=== PATIENT | female | born 1975 ===

== ENCOUNTER 2020-02-19 13:58 | Outpatient (REF) | payer OTHER, SELFPAY ==
--- NOTE | 2020-02-19 14:04 | MM_ITS ---
EXAMINATION: MM SCREENING DIGITAL BREAST TOMOSYNTHESIS, BILATERAL CLINICAL INFORMATION: Screening. Asymptomatic. Family history breast cancer in grandfather and cousin. The lifetime risk of breast cancer based on the Tyrer-Cuzick Model is 9%. COMPARISON: Mammography: 02/13/2019, 07/03/2018, 02/07/2018, 01/18/2018, 06/14/2017, 12/09/2016, 12/01/2016 (new baseline). TECHNIQUE: Digital breast tomosynthesis is performed in both the craniocaudal and mediolateral oblique views along with computer-aided detection (CAD). Synthesized 2D images are generated from the tomosynthesis. FINDINGS: There are scattered areas of fibroglandular density (ACR BI-RADS breast composition Category b). Parenchymal pattern is similar to prior exam. There is biopsy clip marker again seen right breast posterior upper outer quadrant. There is no developing density. Neither breast shows interval architectural abnormality or abnormal calcifications. MM/MM tomosynthesis screening BI IMPRESSION: No significant changes from prior exam. ASSESSMENT: BI-RADS 2: Benign RECOMMENDATION: Routine annual mammography screening. This patient's information was entered into a reminder system with a target due date for their next mammogram.
== END 2020-02-19 13:59 | disposition home or self-care (01) ==
LOC: HO.MAMMO 13:58
PROVIDERS: Visit Provider Internal Medicine
DX: Z12.31 Encounter for screening mammogram for malignant neoplasm of breast (principal)
CPT/HCPCS: 77063; 77067

== ENCOUNTER → 2020-03-10 11:54 | Outpatient (BNVA) | payer OTHER, SELFPAY | PROVIDERS: Visit Provider Obstetrics & Gynecology | DX: Z76.89 Persons encountering health services in other specified circumstances (principal) ==

== ENCOUNTER 2020-03-11 07:28 | Outpatient (REF) | payer OTHER, SELFPAY | END 2020-03-11 07:29 | disposition home or self-care (01) | LOC: HO.MDS 07:28 | PROVIDERS: Visit Provider Internal Medicine | DX: D50.9 Iron deficiency anemia, unspecified (principal) | CPT/HCPCS: 96365; 96366; J1200; J1750; Q0163 ==

== ENCOUNTER → 2020-05-20 13:53 | Outpatient (BNVA) | payer OTHER, SELFPAY | PROVIDERS: PCP Internal Medicine; Visit Provider Obstetrics & Gynecology | DX: N92.1 Excessive and frequent menstruation with irregular cycle (principal) | CPT/HCPCS: 81025; 99212 ==

== ENCOUNTER → 2020-08-12 08:40 | Outpatient (BNVA) | payer OTHER, SELFPAY | PROVIDERS: PCP Internal Medicine; Visit Provider Obstetrics & Gynecology | DX: N92.1 Excessive and frequent menstruation with irregular cycle (principal) | CPT/HCPCS: 99212 ==

== ENCOUNTER → 2020-08-27 08:10 | Outpatient (BNVA) | payer OTHER, SELFPAY | PROVIDERS: PCP Internal Medicine; Visit Provider Obstetrics & Gynecology | DX: Z30.432 Encounter for removal of intrauterine contraceptive device (principal); N92.1 Excessive and frequent menstruation with irregular cycle | CPT/HCPCS: 58301; 99212 ==

== ENCOUNTER 2020-08-29 06:38 | Day surgery (SDC) | payer OTHER, SELFPAY ==
[2020-08-25 08:44] VITALS: BMI 32.1
--- NOTE | 2020-08-27 12:45 | HO.ANESPROP2 ---
HPI - Anesthesia Eval Consult details Narrative: 44yo F for Uterine Ablation w/Novasure PMFSH Active Problems Active Problems: All Active Problems (Updated 08/27/20 @ 08:46 by Jacques Ramirez MD) Encounter for IUD removal (Acute) Mild asthma (Acute) Obese (Acute) Allergic rhinitis (Acute) Menometrorrhagia (Acute) Iron deficiency anemia (Chronic) Uterine fibroid (Acute) Past Medical History Medical History Allergic rhinitis Anxiety Depression GERD (gastroesophageal reflux disease) KRYSTLE (iron deficiency anemia) Mild asthma Obese Sjogrens syndrome Family History Family History Maternal Grandmother H/O cancer of uterus Paternal Grandmother History of breast cancer in adulthood Mother History of stroke History of lupus History of Sjogren's disease Surgical History Surgical History H/O right breast biopsy H/O tubal ligation H/O: Social History Social History Alcohol intake: never Smoking Status: Current every day smoker Tobacco Type: Cigarette Cigarettes Per Day: 10 Meds Allergies Allergy/AdvReac Type Severity Reaction Status Date / Time No Known Allergies Allergy Verified 08/12/20 08:49 [No Known Allergies*] Home Medications Medication Instructions Recorded Confirmed Last Taken Type clonazepam 0.5 mg PO Q8H PRN 02/08/20 08/25/20 Unknown History zolpidem 10 mg PO BEDTIME 02/08/20 08/25/20 Unknown History hydroxyzine HCl 1 tab PO BID PRN 03/07/20 08/25/20 Unknown History ibuprofen 1 tab PO Q8H PRN 03/07/20 08/25/20 Unknown History levonorgestrel 20 mcg/24 hours (6 20 mcg INTRAUTERINE USEASDIRECTD 03/10/20 06/20/20 Unknown History yrs) 52 mg intrauterine device aripiprazole 10 mg tablet 10 mg PO DAILY 05/15/20 08/25/20 Unknown History ferrous sulfate 1 tab PO DAILY 08/25/20 08/25/20 Unknown History Exam Exam Date and Time: August 27, 2020 1245 Height,Weight and Vital Signs: Height 5 ft 2 in Weight 79.832 kg Pertinent Lab Results Pertinent Lab Results: Laboratory Tests 06/20/20 14:00 WBC 9.4 Hgb 13.4 Hct 42.3 Plt Count 303 D Assessment and Plan Assessment Anesthesia Assessment: Chart Reviewed
[2020-08-29 06:51] VITALS: BP 100/72; PULSE 72; RESP 18; TEMP 36.1; O2SAT 99
[2020-08-29 07:05] LABS: UPreg QC Valid YES; Urine Pregnancy NEGATIVE (NEGATIVE)
[2020-08-29] MEDS: Lactated Ringers 1,000 ML 100 ML IVCONT (07:10)
--- NOTE | 2020-08-29 07:14 | PC.NURSE ---
ls clear stuffy nose secondary to allergies per pt
--- NOTE | 2020-08-29 07:32 | MHC.SHP ---
Pre-Procedural Eval Section A The patient is an INPATIENT: No Changes since office visit: No Cold of Flu in the past 2 weeks, No New Medical Problems, No Changes in Medication and No Patient answered all questions The History & Physical has been completed within 30 days and I have reviewed it.: Yes Section B Chief Complaint: Excessive and frequent menstruation Allergies: Allergies Allergy/AdvReac Type Severity Reaction Status Date / Time No Known Allergies Allergy Verified 08/12/20 08:49 [No Known Allergies*] Plan Diagnosis/Plan: Unchanged I have reviewed the history and physical and performed a pertinent physical examination on my patient. No changes have occurred unless specified.
--- NOTE | 2020-08-29 08:18 | HO.ANESPROP2 ---
[facility] Active Problems Active Problems: All Active Problems (Updated 08/27/20 @ 08:46 by Jacques Ramirez MD) Encounter for IUD removal (Acute) Mild asthma (Acute) Obese (Acute) Allergic rhinitis (Acute) Menometrorrhagia (Acute) Iron deficiency anemia (Chronic) Uterine fibroid (Acute) Past Medical History Medical History Allergic rhinitis Anxiety Depression GERD (gastroesophageal reflux disease) KRYSTLE (iron deficiency anemia) Mild asthma Obese Sjogrens syndrome Family History Family History Maternal Grandmother H/O cancer of uterus Paternal Grandmother History of breast cancer in adulthood Mother History of stroke History of lupus History of Sjogren's disease Family history of problems with anesthesia: No Surgical History Surgical History H/O right breast biopsy H/O tubal ligation H/O: History of Problems with Anesthesia: No Social History Social History Alcohol intake: never Smoking Status: Current every day smoker Tobacco Type: Cigarette Cigarettes Per Day: 10 Use of substances other than those prescribed or required for medical reasons: No Have you been hit, kicked, punched, or otherwise hurt by someone within the past year? If so, by whom?: No Are you DNR?: No Advance Directives: No Advance Directives Information Provided: Yes Advance Directives on File: No Nutrition Risks: No Nutritional Risk Meds Allergies Allergy/AdvReac Type Severity Reaction Status Date / Time No Known Allergies Allergy Verified 08/12/20 08:49 [No Known Allergies*] Active Medications: Current Medications Generic Name Dose Route Start Last Admin Trade Name Freq PRN Reason Stop Dose Admin Albuterol Sulfate 2.5 mg 08/29/20 06:34 Albuterol Sulfate (0.083%) 2.5 Mg/3 Ml Vial.Neb INHALE ONCE PRN Shortness of Breath/Wheezing Lactated Ringer's 1,000 mls @ 100 mls/hr 08/29/20 06:45 08/29/20 07:10 Lr IVCONT 100 mls/hr .Q10H CATINA Administration Home Medications Medication Instructions Recorded Confirmed Last Taken Type clonazepam 0.5 mg PO Q8H PRN 02/08/20 08/25/20 Unknown History zolpidem 10 mg PO BEDTIME 02/08/20 08/25/20 Unknown History hydroxyzine HCl 1 tab PO BID PRN 03/07/20 08/25/20 Unknown History ibuprofen 1 tab PO Q8H PRN 03/07/20 08/25/20 Unknown History levonorgestrel 20 mcg/24 hours (6 20 mcg INTRAUTERINE USEASDIRECTD 03/10/20 06/20/20 Unknown History yrs) 52 mg intrauterine device aripiprazole 10 mg tablet 10 mg PO DAILY 05/15/20 08/25/20 Unknown History ferrous sulfate 1 tab PO DAILY 08/25/20 08/25/20 Unknown History Exam Exam Date and Time: August 29, 2020 0818 Height,Weight and Vital Signs: Height 5 ft 2 in Weight 79.832 kg Last Vital Signs Temp 97 F 08/29/20 06:51 Pulse 72 08/29/20 06:51 Resp 18 08/29/20 06:51 BP 100/72 08/29/20 06:51 Pulse Ox 99 08/29/20 06:51 Pertinent Lab Results Pertinent Lab Results: Laboratory Tests 08/29/20 06:50 Urine Test NEGATIVE Airway Mallampati Class: I TM Dist: >3cm Neck ROM: Full Loose/Missing/Broken Teeth: No Assessment and Plan Assessment Anesthesia Assessment: Anesthesia Plan Discussed and Chart Reviewed Final Anesthetic Review NPO: Yes ASA Class: II Final Preanesthetic Review: No Changes in Pt Med Stat, Meds/Allgs Chart Reviewed, Consent Obtained/Reviewed and Anes Risks/Benef Reviewed Patient Risk: Low Procedure Risk: Intermediate Anesthetic Plan Anesthetic Plan: GA and Agree w/ Assess. and Plan Disposition: Standard PACU
--- NOTE | 2020-08-29 08:53 | P.BOP_ITS ---
Brief Operative Note Date of Service: 03/07/20 Pre-op diagnosis: Menometrorrhagia Post-op diagnosis: same Procedure: NovaSure Endometrial Ablation Surgeon: Jacques Ramirez MD Anesthesia: MAC Was an Automation Sales Manager used for this Procedure?: No Estimated blood loss (mL): 0 Pathology: none sent Condition: stable Disposition: PACU
--- NOTE | 2020-08-29 08:55 | W.PM.OPN ---
Operative Note Operative Note Date of Service: 03/07/20 Narrative: Preop diagnosis: Menorrhagia Post Op Diagnosis: Same Op: Novasure Endometrial Ablation Anesthesia: MAC Concrete Mixing Plant Superintendent: None QBL: Minimal Pathology: None Complications: None Procedure: The patient was put in the dorsal lithotomy position. She was prepped and draped in the usual sterile manner. Bimanual exam prior to prepping revealed a mobile, anteverted uterus. A speculum was placed in the vagina and the anterior lip of the cervix was grasped with a single toothed tenaculum and brought forward. Taking care not to enter deep into the uterus, a sound was passed inside to measure the length of the uterus and cervix. This length was found to be 8 cm. Next, Hegar dilator was inserted into the cervical os to measure the cervical length which was 3 cm. This yielded an endometrial cavity length of 6.5 cm. A series of Hegar dilators were then inserted sequentially into the cervical os up to a size of 5 mm. The Novasure device was then opened and tested; the fan deployed easily. The instrument was set to the correct cavity length and introduced into the uterine cavity. The fan was slowly deployed with gentle movements to ensure a snug fit within the cavity. The cavity width read 4.5 cm. The measurements were imported and a cavity check was done. The trumpet was then slid down to the cervix and the device was activated. The total burn time was 91 seconds. The fan was retracted and device removed. The fan was examined and revealed charred tissue. The tenaculum was removed and the cervix examined for hemostasis which was achieved using pressure. Finally the speculum was removed. The patient tolerated the procedure well and was brought to the recovery room in a stable condition. At the end of the procedure all sponges and instruments were counted and correct. The blood loss was minimal and there were no complications.
[2020-08-29 09:03] VITALS: BP 115/75; PULSE 74; RESP 12; TEMP 36.1; O2SAT 94
[2020-08-29 09:08] VITALS: BP 118/84; PULSE 71; RESP 14; O2SAT 95
[2020-08-29 09:13] VITALS: BP 112/79; PULSE 70; RESP 14; O2SAT 95
[2020-08-29] MEDS: oxyCODONE HCl Immed Release 5 MG TABLET PO (09:15)
[2020-08-29] MEDS: Ketorolac Tromethamine 15 MG/ML VIAL IVPUSH (09:15)
[2020-08-29 09:18] VITALS: BP 117/80; PULSE 69; RESP 16; O2SAT 95
[2020-08-29 09:33] VITALS: BP 106/66; PULSE 64; RESP 16; TEMP 36.1; O2SAT 97
== END 2020-08-29 10:08 | disposition home or self-care (01) ==
LOC: HO.SSS 06:39
PROVIDERS: PCP Internal Medicine; Visit Provider Obstetrics & Gynecology
PROC: (CPT 58353; principal; 2020-08-29 08:20)
DX: N92.1 Excessive and frequent menstruation with irregular cycle (principal); D50.9 Iron deficiency anemia, unspecified; J45.909 Unspecified asthma, uncomplicated; M35.00 Sjogren syndrome, unspecified; Z98.51 Tubal ligation status; F17.210 Nicotine dependence, cigarettes, uncomplicated; E66.9 Obesity, unspecified; Z68.31 Body mass index [BMI] 31.0-31.9, adult
CPT/HCPCS: 58353; 81025; J1885; J2405; J3010

== ENCOUNTER 2021-03-03 12:08 | Outpatient (REF) | payer OTHER, SELFPAY ==
[2021-03-03 13:23] LABS: Hematocrit 39.1 % (37.0-47.0); Hemoglobin 12.2 g/dl (12.0-16.0); Mean Corpuscular HGB Conc 31.2 g/dl (31.0-35.0); Mean Corpuscular Hemoglobin 26.8 pg (27.0-33.0); Mean Corpuscular Volume 85.9 fL (80.0-98.0); Mean Platelet Volume 11.4 fL (9.4-12.3); Platelet Count 290 X10*3/uL (160-400); Red Blood Count 4.55 X10*6/uL (4.20-5.50); White Blood Count 10.6 X10*3/uL (4.8-10.8)
[2021-03-03 14:08] LABS: HCG Quantitative < 2 mIU/mL; TSH reflex Free T4 1.87 uIU/mL (0.32-4.0)
[2021-03-03 15:58] LABS: CT PCR NOT DETECTED (Not Detect.); NG PCR NOT DETECTED (Not Detect.)
[2021-03-04 08:43] LABS: ~HepC Num1 0.15 S/CO (0.00-0.79); ~Hepatitis C Antibody Nonreactive (Nonreactive)
[2021-03-04 08:53] LABS: HBsAGNum1 0.11 S/CO (0.00-0.99); HIV AB/AG Nonreactive (Nonreactive); HIV Num 1 0.07 S/CO (0.00-0.99); Hepatitis B Surface Antigen Negative (Negative)
[2021-03-04 09:59] LABS: BV Int Neg Control Negative (Negative); BV Int Pos Control Positive (Positive)
[2021-03-04 10:01] LABS: Syphilis Screen Nonreactive (Nonreactive)
== END 2021-03-03 12:09 | disposition home or self-care (01) ==
LOC: HO.LAB 12:08
PROVIDERS: PCP Internal Medicine; Visit Provider Obstetrics & Gynecology
DX: Z01.419 Encounter for gynecological examination (general) (routine) without abnormal findings (principal); N93.9 Abnormal uterine and vaginal bleeding, unspecified; Z11.3 Encounter for screening for infections with a predominantly sexual mode of transmission; Z98.51 Tubal ligation status
CPT/HCPCS: 36415; 84443; 84702; 85027; 86780; 86803; 87340; 87389; 87480; 87491; 87510; 87591; 87660; 99212

== ENCOUNTER 2021-03-12 13:31 | Outpatient (REF) | payer OTHER, SELFPAY ==
--- NOTE | ~2021-03-12 | US_ITS ---
EXAMINATION: US PELVIS CLINICAL INFORMATION: Abnormal uterine and vaginal bleeding COMPARISON: Previous pelvic ultrasound most recent December 2019 TECHNIQUE: Ultrasound of the pelvis is performed using both transabdominal and transvaginal transducers along with Doppler. Transvaginal imaging is performed due to inadequate visualization transabdominally. FINDINGS: The uterus is anteverted and retroflexed and measures 10 x 4.4 x 6 cm in dimension. There is a 1.4 x 1.5 x 1 cm posterior uterine fibroid. There is a small subserosal anterior uterine body fibroid measuring 6 x 7 x 7 mm. These do not appear appreciably changed from previous exam. Endometrial thickness is normal measuring 0.7 cm. There are nabothian cysts in the cervix. The right ovary is not identified. The left ovary measures 4.5 x 2.5 x 2.5 cm. There is a 2.9 x 2.2 x 2.6 cm minimally complex left ovarian cyst with a single septation. There is a small amount of fluid in the pelvis. US/US pelvic and transvaginal IMPRESSION: Normal thickness endometrium. Small uterine fibroid similar to exam. Minimally complex 2.9 x 2.2 x 2.6 cm left ovarian cyst.
--- NOTE | ~2021-03-12 | XR_ITS ---
EXAMINATION: XR KNEE, LEFT CLINICAL INFORMATION: Left knee pain. COMPARISON: 06/28/2017 TECHNIQUE: 2 views of the left knee. FINDINGS: Bones and soft tissues are normal. No fracture or joint effusion. Alignment is anatomic. Joint spaces are well maintained. No abnormal soft tissue calcification. XR/XR knee LT 2V IMPRESSION: Normal left knee.
== END 2021-03-12 13:32 | disposition home or self-care (01) ==
LOC: HO.US 13:31
PROVIDERS: PCP Student in an Organized Health Care Education/Training Program; Visit Provider Obstetrics & Gynecology
DX: N93.9 Abnormal uterine and vaginal bleeding, unspecified (principal); E66.9 Obesity, unspecified
CPT/HCPCS: 73560; 76830; 76856

== ENCOUNTER 2021-03-25 08:26 | Outpatient (REF) | payer OTHER, SELFPAY ==
[2021-03-25 11:12] LABS: Erythrocyte Sedimentation Rate 8 MM/HR (0-20)
[2021-03-25 11:17] LABS: Alanine Aminotransferase 29 U/L (0-31); Albumin Level 4.1 g/dL (3.5-5.0); Alkaline Phosphatase 131 U/L (39-117); Anion Gap 15 (12-20); Aspartate Amino Transferase 25 U/L (5-31); Bilirubin Total 0.3 mg/dL (0.0-1.0); Blood Urea Nitrogen 11 mg/dL (9-16); Calcium 10.5 mg/dL (8.4-10.2); Carbon Dioxide 20 mmol/L (22-29); Chloride 109 mmol/L (96-108); Cholesterol 212 mg/dL; Estimated Glomerular Filt Rate 59; Glucose Fasting 103 mg/dL (60-99); HDL Cholesterol 37 mg/dL; LDL Cholesterol Calculated 155 mg/dl; Potassium 4.6 mmol/L (3.3-5.1); Sodium 139 mmol/L (135-145); Total Protein 7.8 g/dL (6.5-8.0); Triglycerides 104 mg/dL
[2021-03-25 11:34] LABS: TSH reflex Free T4 1.17 uIU/mL (0.32-4.0)
[2021-03-27 06:27] LABS: CA-125 5 U/mL (<35)
[2021-03-27 12:45] LABS: Cyclic Citrullinated Peptide <16 UNITS
[2021-03-28 12:46] LABS: Antibody to SS-A Antigen <1.0 NEG AI (<1.0 NEG); Antibody to SS-B Antigen <1.0 NEG AI (<1.0 NEG)
== END 2021-03-25 08:27 | disposition home or self-care (01) ==
LOC: HO.LAB 08:26
PROVIDERS: Absent Provider Internal Medicine; PCP Internal Medicine; Visit Provider Obstetrics & Gynecology
DX: E66.9 Obesity, unspecified (principal); R68.2 Dry mouth, unspecified; E78.5 Hyperlipidemia, unspecified; N83.299 Other ovarian cyst, unspecified side; N92.1 Excessive and frequent menstruation with irregular cycle
CPT/HCPCS: 36415; 80053; 80061; 84443; 85652; 86200; 86235; 86304; 99212

== ENCOUNTER 2021-04-02 13:33 | Outpatient (REF) | payer OTHER, SELFPAY | END 2021-04-02 13:34 | disposition home or self-care (01) | LOC: HO.LAB 13:33 | PROVIDERS: Visit Provider Internal Medicine | DX: Z20.822 Contact with and (suspected) exposure to COVID-19 (principal) | CPT/HCPCS: C9803; U0003; U0005 ==

== ENCOUNTER 2021-06-16 13:52 | Emergency (ER) | payer OTHER, SELFPAY ==
[2021-06-16 14:57] VITALS: BP 129/79; PULSE 79; RESP 18; TEMP 36.8; O2SAT 99; BMI 31.1
--- NOTE | 2021-06-16 15:53 | ED_ITS ---
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 Patient states that a few days ago, she noticed swelling and pain to her upper pubic area. Patient states that she has been putting neosporin on it and using warm compresses but it hasn't helped. Patient states that she would like the area to be opened and drained. Patient denies any dizziness, lightheadedness, abdominal pain, nausea, vomiting, fever, chills, blurry vision, double vision, loss of vision, chest pain, difficulty breathing, shortness of breath, back pain, night sweats, pain with urination, increased urinary frequency, increased urinary urgency, blood in her urine or stool, syncope or a near syncopal episode, recent trauma or falls, bowel incontinence, bladder incontinence, bowel retention, bladder retention, or any other complaints at this time. MD complaint: abscess/boil Onset (ago): day(s) Related Data Home Medications Medication Instructions Recorded Confirmed clonazepam 0.5 mg tablet 0.5 mg PO Q8H PRN 02/08/20 03/04/21 zolpidem 10 mg tablet 10 mg PO BEDTIME 02/08/20 03/04/21 aripiprazole 15 mg tablet 15 mg PO DAILY 03/04/21 03/04/21 clonidine HCl 0.1 mg tablet 0.1 mg PO BID PRN 03/04/21 03/04/21 Previous Rx's Medication Instructions Recorded albuterol sulfate 90 mcg/actuation 2 inh INHALATION Q6H PRN 30 Days 05/15/20 breath activated powder inhaler #1 ea (ProAir RespiClick) metronidazole 500 mg tablet 500 mg PO BID 7 Days #14 tab 03/04/21 fluticasone propionate 44 2 puff INHALATION BID 30 Days 05/06/21 mcg/actuation HFA aerosol inhaler #10.6 g (Flovent HFA) doxycycline hyclate 100 mg capsule 100 mg PO BID 7 Days #14 cap 06/16/21 Allergies Allergy/AdvReac Type Severity Reaction Status Date / Time No Known Allergies Allergy Verified 03/04/21 14:31 [No Known Allergies*] Review of Systems Constitutional: Constitutional: Reports no additional constitutional complaints, Denies chills, Denies fever(s) and Denies night sweats Eyes: Eyes: Reports no additional eye complaints, Denies blurry vision, Denies change in vision, Denies diplopia, Denies eye discharge, Denies loss of vision and Denies eye pain ENT: Denies dizziness Cardiovascular: Cardiovascular: Reports no additional cardiovascular complaints, Denies chest pain, Denies lightheadedness, Denies Loss of Consciousness and Denies dyspnea Respiratory: Respiratory: Reports no additional respiratory complaints and Denies dyspnea Gastrointestinal: Gastrointestinal: Reports no additional gastrointestinal complaints, Denies abdominal pain, Denies melena, Denies hematochezia, Denies change in bowel habits and Denies change in stool character Genitourinary: Genitourinary: Denies hematuria, Denies urinary frequency, Denies dysuria, Denies urinary incontinence, Denies urinary hesitancy and Denies urinary urgency Musculoskeletal: Musculoskeletal: Reports no additional musculoskeletal complaints, Denies numbness and Denies tingling Integumentary/Breasts: Comments: small abscessed area to the suprapubic area Neurologic: Denies dizziness, Denies loss of vision, Denies numbness and Denies tingling Psychiatric: Psychiatric: Reports no additional psychiatric complaints Endocrine: Endocrine: Reports no additional endocrine complaints Hematologic/Lymphatic: Hematologic/Lymphatic: Reports no additional hematologic/lymphatic complaints Allergic/Immunologic: Allergic/Immunologic: Reports no additional allergic/immunologic complaints FORMERLY [facility] Past Medical History Attestation statement: The following information was validated with the patient. Source: old records reviewed Medical History Allergic rhinitis Anxiety Depression GERD (gastroesophageal reflux disease) KRYSTLE (iron deficiency anemia) Mild asthma Mild recurrent major depression Obese Sjogrens syndrome Surgical History H/O right breast biopsy H/O tubal ligation H/O: History of endometrial ablation Family History Family History Maternal Grandmother H/O cancer of uterus Paternal Grandmother History of breast cancer in adulthood Mother History of stroke History of lupus History of Sjogren's disease Social History Social History Housing: Apartment Alcohol intake: never Patient Tobacco Use Status: Current everyday Tobacco user Tobacco use type: Cigarette Cigarette Packs Per Day: 1 e-Cigarette/Vaping Use: Never Used Second Hand Smoke Exposure: No Advance Directives: No Advance Directives Information Provided: No Patient : No service: No Current occupational status: unemployed Physical Exam Vital Signs: Vital Signs: Last Vital Signs Temp 98.2 F 06/16/21 14:57 Pulse 79 06/16/21 14:57 Resp 18 06/16/21 14:57 BP 129/79 06/16/21 14:57 Pulse Ox 99 06/16/21 14:57 BMI result Body Mass Index 31.1 Const: General: cooperative, no acute distress, alert and awake Nutritional Appearance: well nourished Orientation/consciousness: patient oriented x3 Limitations: no limitations HENMT: Head: Yes normal to inspection and Yes atraumatic Ears: hearing grossly normal bilaterally and external ears normal General nose exam: Normal external nose present, no nasal discharge noted and no epistaxis Face and sinus: Yes normal facial exam, No abrasion and No laceration Mouth: Normal oral and palatal mucosa present, no drooling and no muffled voice Eyes: General: appearance normal, both eyes and all related structures Periorbital: periorbital findings normal Eyelids: Yes eyelids normal Conjunctivae: conjunctivae normal Pupils: Equal, round and reactive pupils present EOM: EOMs intact bilaterally Neck: Neck: Yes normal visual inspection, Yes full ROM and Yes no lymphadenopathy Chest: Chest palpation & inspection: normal inspection of the chest Resp: Effort & Inspection: normal respiratory effort and able to speak in complete sentences GI: Inspection: Yes normal to inspection Skin: Other: small abscess to the suprapubic area Neuro: General: patient oriented x3 and moves all extremities Cranial nerves: Yes Equal, round and reactive pupils present Cognition (Neuro): normal cognition Motor exam (neuro): 5/5 motor strength present throughout Sensory Exam: Normal double simultaneous stimulation for sensation Co ordination: [id number] test normal Extrem: General: Yes normal to inspection, Yes full ROM and Yes capillary refill normal Psych: Appearance: grossly normal Mental Status: mental status grossly normal Affect: normal affect Attitude: cooperative Thought process: Normal thought process present Thought content: Normal thought content present Insight: Good insight present (Psych) MDM - Skin/Abscess/Foreign Bdy MDM Narrative Medical decision making narrative: Patient is a 45 year old female presenting to the emergency department today with an abscess to her suprapubic area. Patient's physical exam showed a small abscess to the suprapubic area. I explained my physical exam findings to the patient. I answered all questions asked by the patient. Patient's abscess was drained, without incident. I stressed the importance of the patient taking her medication as prescribed. I stressed the importance of the patient following up with her primary care provider. I stressed the importance of the patient returning to the emergency department immediately if her symptoms were to worsen or if she were to develop any dizziness, shortness of breath, difficulty breathing, chest pain, blurry vision, loss of vision, nausea, vomiting, abdominal pain, fever, chills, back pain, or any other complaints. Patient verbalized agreement and understanding with this treatment plan and discharge. Differential Diagnosis Differential diagnosis: Likely abscess of skin or subcutaneous tissue and cellulitis Medical Records Attestation: I reviewed the patient's medical records. Procedures Abscess I/D Site: other (suprapubic area) Sedation/analgesia: none Local Anesthetic: lidocaine 1% Amount of anesthesia used (mL): 5 Technique: incised with blade Amount of fluid expressed (mL): 3 Sent for culture/gram staining?: No Irrigation: No Packing used?: none Discharge Plan Discharge Clinical Impression: Ingrown hair Patient Disposition: Home, Self-Care Instructions: Folliculitis (ED) Additional Instructions: Follow up with your primary care provider. Return to the emergency department immediately if your symptoms worsen or if you develop any dizziness, shortness of breath, difficulty breathing, chest pain, blurry vision, loss of vision, nausea, vomiting, abdominal pain, fever, chills, back pain, or any other complaints. Prescriptions: New doxycycline hyclate 100 mg capsule 100 mg PO BID 7 Days Qty: 14 0RF No Action metronidazole 500 mg tablet 500 mg PO BID 7 Days Qty: 14 0RF Flovent HFA 44 mcg/actuation HFA aerosol inhaler 2 puff inhalation BID 30 Days Qty: 10.6 3RF Rx Instructions: administer with spacer clonazepam 0.5 mg tablet 0.5 mg PO Q8H PRN (Reason: Anxiety) 0RF zolpidem 10 mg tablet 10 mg PO BEDTIME 0RF ProAir RespiClick 90 mcg/actuation aerosol powdr breath activated 2 inh inhalation Q6H PRN (Reason: shortness of breath) 30 Days Qty: 1 6RF clonidine HCl 0.1 mg tablet 0.1 mg PO BID PRN0RF aripiprazole 15 mg tablet 15 mg PO DAILY 0RF Referrals: Margo Barragan MD [Primary Care Provider] - 2 days Interventions: ED Discharge Assessment Last Done: 06/16/21 17:16 Discharge Date/Time: 06/16/21 17:16 Print Language: Mohawk
[2021-06-16] MEDS: Lidocaine HCl 1 % 20 ML VIAL SUBCUT (17:10)
== END 2021-06-16 17:16 | disposition home or self-care (01) ==
PROVIDERS: Emergency Provider Emergency Medicine; PCP Internal Medicine
DX: L73.9 Follicular disorder, unspecified (principal); E66.9 Obesity, unspecified; F17.200 Nicotine dependence, unspecified, uncomplicated
CPT/HCPCS: 10060; 99283; 99284

== ENCOUNTER 2021-06-22 11:41 | Outpatient (REF) | payer OTHER, SELFPAY ==
--- NOTE | ~2021-06-22 | MM_ITS ---
EXAMINATION: MM SCREENING DIGITAL BREAST TOMOSYNTHESIS, BILATERAL CLINICAL INFORMATION: Screening. Asymptomatic. Benign right stereotactic biopsy 02/07/2018. The lifetime risk of breast cancer based on the Tyrer-Cuzick Model is 7%. COMPARISON: Mammography: 02/19/2020, 02/13/2019, 07/03/2018, 02/07/2018, 01/18/2018, 06/14/2017, 12/01/2016 TECHNIQUE: Digital breast tomosynthesis is performed in both the craniocaudal and mediolateral oblique views along with computer-aided detection (CAD). Synthesized 2D images are generated from the tomosynthesis. FINDINGS: There are scattered areas of fibroglandular density (ACR BI-RADS breast composition Category b). Parenchymal pattern is similar to prior studies. There is intramammary node again seen posterior upper outer left breast. Right breast has biopsy clip marker with stable adjacent parenchymal density on MLO view. Neither breast shows significant mass or architectural abnormality or abnormal calcifications. No developing density. The axilla and skin contours are unremarkable. MM/MM tomosynthesis screening BI IMPRESSION: No mammographic evidence of malignancy. ASSESSMENT: BI-RADS 2: Benign RECOMMENDATION: Routine annual mammography screening. This patient's information was entered into a reminder system with a target due date for their next mammogram.
== END 2021-06-22 11:42 | disposition home or self-care (01) ==
LOC: HO.MAMMO 11:41
PROVIDERS: Visit Provider Obstetrics & Gynecology
DX: Z12.31 Encounter for screening mammogram for malignant neoplasm of breast (principal)
CPT/HCPCS: 77063; 77067

== ENCOUNTER 2021-06-23 13:41 | Outpatient (REF) | payer OTHER, SELFPAY ==
--- NOTE | ~2021-06-23 | US_ITS ---
EXAMINATION: US PELVIS CLINICAL INFORMATION: Other ovarian cyst, unspecified side. COMPARISON: Ultrasound pelvis 03/12/2021 TECHNIQUE: Ultrasound of the pelvis is performed using both transabdominal and transvaginal transducers along with Doppler. Transvaginal imaging is performed due to inadequate visualization transabdominally. FINDINGS: Uterus: The uterus is anteverted, retroflexed and measures 10.4 x 4.5 x 5.8 cm. The double wall endometrial thickness is 0.91 cm. The uterus is smooth in contour and has normal myometrial echogenicity. There is a hypoechoic lesion in the anterior right upper body of uterus measuring of 1.9 x 1.5 x 2.1 cm. Previously it measured 1.4 x 1.5 x 0.9 cm. A second fibroid seen previously in the left fundus is not seen at this time. There are small nabothian cysts seen in the cervix. Adnexa: Both ovaries are visualized. There is normal color flow to the adnexa. There is no ovarian torsion. There is no pelvic ascites or fluid collection. Right ovary measures 3.9 x 1.4 x 1.6 cm and volume 4.8 mL best visualized on transabdominal ultrasound. Left ovary measures 5.3 x 3.5 x 2.6 cm and volume 26.0 mL. There is a complex anechoic cyst measuring 4.3 x 3.1 x 3.1 cm. Previously left ovary measured 4.5 x 2.5 x 2.5 cm. US/US pelvic and transvaginal IMPRESSION: Small uterine fibroid in the anterior right upper body of uterus shows minimal increase to no change. Second fibroid seen previously in the left body of uterus is not visualized. Complex cyst left ovary. Several nabothian cysts seen in the cervix.
== END 2021-06-23 13:42 | disposition home or self-care (01) ==
LOC: HO.US 13:41
PROVIDERS: PCP Internal Medicine; Visit Provider Obstetrics & Gynecology
DX: N83.299 Other ovarian cyst, unspecified side (principal)
CPT/HCPCS: 76830; 76856

== ENCOUNTER → 2021-07-07 15:58 | Outpatient (BNVA) | payer OTHER, SELFPAY | PROVIDERS: Visit Provider Obstetrics & Gynecology | DX: Z13.89 Encounter for screening for other disorder (principal) ==

== ENCOUNTER → 2021-07-08 10:27 | Outpatient (BNVA) | payer OTHER, SELFPAY | PROVIDERS: Referring Provider Internal Medicine; Visit Provider Surgery | DX: L72.0 Epidermal cyst (principal) | CPT/HCPCS: 99202 ==

== ENCOUNTER 2021-07-22 14:50 | Outpatient (REF) | payer OTHER, SELFPAY | END 2021-07-22 14:51 | disposition home or self-care (01) | LOC: HO.MRI 14:50 | PROVIDERS: Visit Provider Obstetrics & Gynecology | DX: Z13.89 Encounter for screening for other disorder (principal) ==

== ENCOUNTER 2021-07-31 15:14 | Outpatient (REF) | payer OTHER, SELFPAY ==
--- NOTE | ~2021-07-31 | MR_ITS ---
EXAMINATION: MR PELVIS WITHOUT AND WITH CONTRAST CLINICAL INFORMATION: Follow-up left ovarian cyst. COMPARISON: Previous pelvic ultrasound most recent June 2021. TECHNIQUE: Sagittal axial and coronal sequences through the pelvis with and without contrast. Patient received 8 mL Gadavist contrast. FINDINGS: The uterus is slightly anteverted and retroflexed and measures 9.5 x 4.9 x 5.5 cm in dimension. The endometrium does not appear thickened measuring 0.6 cm. There is a 1.7 cm lesion in the right upper uterine body suggestive of a fibroid. There is a second low signal 9 mm lesion in the fundus of the uterus also suggestive of a small fibroid. The cervix is normal. The ovaries are normal. No ovarian cyst is seen. The bladder is normal. Visualized bowel is normal. No ascites or adenopathy is seen. No hernia is seen. Bony structures are unremarkable. MR/MR pelvis wo/w con IMPRESSION: 2 uterine fibroids, otherwise unremarkable exam. No ovarian cyst.
== END 2021-07-31 15:15 | disposition home or self-care (01) ==
LOC: HO.MRI 15:14
PROVIDERS: Visit Provider Obstetrics & Gynecology
DX: N83.299 Other ovarian cyst, unspecified side (principal)
CPT/HCPCS: 72197; A9585

== ENCOUNTER → 2021-08-05 12:42 | Outpatient (BNVA) | payer OTHER, SELFPAY | PROVIDERS: Visit Provider Obstetrics & Gynecology | DX: D25.9 Leiomyoma of uterus, unspecified (principal); N83.299 Other ovarian cyst, unspecified side | CPT/HCPCS: 99212 ==

== ENCOUNTER 2021-08-25 08:38 | Outpatient (REF) | payer OTHER, SELFPAY ==
[2021-08-25 10:06] LABS: Alanine Aminotransferase 34 U/L (0-31); Albumin Level 3.9 g/dL (3.5-5.0); Alkaline Phosphatase 135 U/L (39-117); Anion Gap 11 (12-20); Aspartate Amino Transferase 35 U/L (5-31); Bilirubin Total 0.3 mg/dL (0.0-1.0); Blood Urea Nitrogen 8 mg/dL (9-16); Calcium 10.4 mg/dL (8.4-10.2); Carbon Dioxide 24 mmol/L (22-29); Chloride 109 mmol/L (96-108); Cholesterol 215 mg/dL; Estimated Glomerular Filt Rate > 60; Glucose Fasting 93 mg/dL (60-99); HDL Cholesterol 32 mg/dL; LDL Cholesterol Calculated 139 mg/dl; Potassium 4.5 mmol/L (3.3-5.1); Sodium 139 mmol/L (135-145); Total Protein 7.6 g/dL (6.5-8.0); Triglycerides 220 mg/dL
[2021-08-26 14:11] LABS: Calcium (PTHI) 10.1 mg/dL (8.6-10.2); PTHI 131 pg/mL (16-77)
[2021-08-27 10:26] LABS: CA 125 New Method 8 U/mL (<35); CA-125 8 U/mL (<35)
[2021-08-30 13:00] LABS: Vitamin D 25-OH, D2 <4 ng/mL; Vitamin D 25-OH, D3 6 ng/mL; Vitamin D 25-OH, Total 6 ng/mL (30-100)
[2021-08-31 10:41] LABS: Calcium, Ionized 5.7 mg/dL (4.8-5.6)
== END 2021-08-25 08:39 | disposition home or self-care (01) ==
LOC: HO.LAB 08:38
PROVIDERS: Obstetrics & Gynecology; PCP Internal Medicine; Visit Provider Internal Medicine
DX: N83.299 Other ovarian cyst, unspecified side (principal); E78.5 Hyperlipidemia, unspecified; E55.9 Vitamin D deficiency, unspecified; E83.52 Hypercalcemia
CPT/HCPCS: 36415; 80053; 80061; 82306; 82330; 83970; 86304

== ENCOUNTER 2021-11-18 08:43 | Outpatient (REF) | payer OTHER, SELFPAY ==
--- NOTE | ~2021-11-18 | US_ITS ---
EXAMINATION: US COMPLETE ABDOMEN WITH LIVER ELASTOGRAPHY CLINICAL INFORMATION: Elevated levels of liver transaminase COMPARISON: None. TECHNIQUE: Real-time imaging of the abdominal viscera. Noninvasive ultrasound liver fibrosis assessment is performed using Amrik ElastPQ point quantification shear wave elastography (2D-SWE) with a C5-2 MHz transducer. Multiple elastography samples are obtained. FINDINGS: PANCREAS: Normal. The visualized pancreatic head and body are normal in appearance. The remainder of the pancreas is obscured from visualization by the overlying bowel gas. ABDOMINAL AORTA: The proximal, middle, and distal aortic segments are normal in caliber. INFERIOR VENA CAVA: Visualized portions are normal. LIVER: No focal liver lesion seen. There is diffusely increased hepatic echogenicity and sound attenuation consistent with diffuse hepatic steatosis. The right lobe measures 19.2 cm in length. The left lobe measures 11.1 cm in length. Portal flow is hepatopetal. Shear wave liver elastography median stiffness is 1.35 m/s (reference: normal median stiffness is 1.3 m/s or less). IQR/median stiffness to assess sampling precision is 0.07 (reference: good quality data set is IQR/median stiffness of 0.15 or less). GALLBLADDER: Normal. The gallbladder is physiologically distended without evidence of stones, sludge, polyps, wall thickening or pericholecystic fluid. COMMON BILE DUCT: Normal in caliber measuring 0.2 cm in diameter. RIGHT KIDNEY: Normal. No hydronephrosis. No renal calculi or focal parenchymal lesions. The kidney measures 10.2 cm in maximum dimension. LEFT KIDNEY: 4 mm calculus in the left lower pole. No hydronephrosis. No focal parenchymal lesions. The kidney measures 10.1 cm in maximum dimension. SPLEEN: Normal. The spleen measures 9.9 cm in maximum dimension. FREE FLUID: None. US/US abdomen comp w elastography IMPRESSION: 1. Diffusely increased hepatic echogenicity and sound attenuation consistent with diffuse hepatic steatosis. 2. Liver elastography: In the absence of other known clinical signs, measurements rule out compensated advanced chronic liver disease. If there are known clinical signs, further testing may be needed for confirmation. 3. 4 mm nonobstructing left lower pole renal calculus. REFERENCE: Society of Radiologists in Ultrasound Liver Stiffness Thresholds (2020): LIVER STIFFNESS THRESHOLDS: *Liver Stiffness equal or less than 1.3 m/s: High probability of being normal. *Liver Stiffness less than 1.7 m/s: In the absence of other known clinical signs, rules out compensated advanced chronic liver disease. *Liver Stiffness 1.7-2.1 m/s: Suggestive of compensated advanced chronic liver disease but need further test for confirmation. *Liver Stiffness over 2.1 m/s: Rules in compensated advanced chronic liver disease. *Liver Stiffness over 2.4 m/s: Suggestive of clinically significant portal hypertension. QUALITY OF DATA SET: *IQR/Median value equal or less than 0.15 implies a quality data set. *IQR/Median value over 0.15 implies a poor quality data set. SIGNIFICANT CHANGE FROM PRIOR EXAM: Significant change if liver stiffness measurement is 10% or greater from prior exam. OTHER CONSIDERATIONS: The stage of liver fibrosis may be overestimated in the setting of acute hepatitis, liver inflammation, elevated liver function tests, hepatic vascular congestion, obstructive cholestasis, non-fasting state, and infiltrative diseases such as amyloidosis and lymphoma. In some patients with NAFLD, the liver stiffness thresholds for compensated advanced chronic liver disease may be lower. In causes other than viral hepatitis and NAFLD, liver stiffness thresholds are not well established.
== END 2021-11-18 08:44 | disposition home or self-care (01) ==
LOC: HO.US 08:43
PROVIDERS: PCP Internal Medicine; Visit Provider Internal Medicine
DX: R74.01 Elevation of levels of liver transaminase levels (principal)
CPT/HCPCS: 76705; 76981

== ENCOUNTER 2022-01-25 08:57 | Outpatient (REF) | payer OTHER, SELFPAY ==
[2022-01-25 10:03] LABS: Alanine Aminotransferase 32 U/L (0-31); Albumin Level 4.1 g/dL (3.5-5.0); Alkaline Phosphatase 128 U/L (39-117); Aspartate Amino Transferase 26 U/L (5-31); Bilirubin Direct 0.2 mg/dL (0.0-0.5); Bilirubin Total 0.3 mg/dL (0.0-1.0); Cholesterol 223 mg/dL; HDL Cholesterol 34 mg/dL; LDL Cholesterol Calculated 161 mg/dl; Total Protein 7.5 g/dL (6.5-8.0); Triglycerides 144 mg/dL
[2022-01-25 10:24] LABS: Vitamin D 25-OH Total 25.1 ng/mL (>30)
[2022-01-27 12:37] LABS: Calcium (PTHI) 10.3 mg/dL (8.6-10.2); PTHI 155 pg/mL (16-77)
[2022-01-27 18:33] LABS: Calcium, Random Urine 4.9 mg/dL
[2022-01-28 16:02] LABS: Calcium, Ionized 5.5 mg/dL (4.8-5.6)
== END 2022-01-25 08:58 | disposition home or self-care (01) ==
LOC: HO.LAB 08:57
PROVIDERS: PCP Internal Medicine; Visit Provider Internal Medicine
DX: E55.9 Vitamin D deficiency, unspecified (principal); E21.3 Hyperparathyroidism, unspecified; R74.01 Elevation of levels of liver transaminase levels; E78.5 Hyperlipidemia, unspecified
CPT/HCPCS: 36415; 80061; 80076; 82306; 82310; 82330; 83970

== ENCOUNTER → 2022-03-26 07:45 | Outpatient (BNVA) | payer OTHER, SELFPAY | PROVIDERS: PCP Internal Medicine; Visit Provider Internal Medicine Endocrinology, Diabetes & Metabolism | DX: E21.3 Hyperparathyroidism, unspecified (principal) | CPT/HCPCS: 99202 ==

== ENCOUNTER 2022-06-07 07:59 | Outpatient (REF) | payer OTHER, SELFPAY ==
[2022-06-07 11:55] LABS: Alanine Aminotransferase 23 U/L (0-31); Albumin Level 4.1 g/dL (3.5-5.0); Alkaline Phosphatase 123 U/L (39-117); Anion Gap 14 (12-20); Aspartate Amino Transferase 19 U/L (5-31); Bilirubin Total 0.3 mg/dL (0.0-1.0); Blood Urea Nitrogen 12 mg/dL (9-16); Calcium 10.3 mg/dL (8.4-10.2); Carbon Dioxide 22 mmol/L (22-29); Chloride 108 mmol/L (96-108); Cholesterol 148 mg/dL; Estimated Glomerular Filt Rate > 60; Glucose Fasting 85 mg/dL (60-99); HDL Cholesterol 38 mg/dL; LDL Cholesterol Calculated 91 mg/dl; Potassium 4.6 mmol/L (3.3-5.1); Sodium 139 mmol/L (135-145); Total Protein 7.2 g/dL (6.5-8.0); Triglycerides 99 mg/dL
[2022-06-08 13:39] LABS: Calcium (PTHI) 10.6 mg/dL (8.6-10.2); PTHI 106 pg/mL (16-77)
== END 2022-06-07 08:00 | disposition home or self-care (01) ==
LOC: HO.10HDL 07:59
PROVIDERS: Visit Provider Internal Medicine Endocrinology, Diabetes & Metabolism
DX: E21.3 Hyperparathyroidism, unspecified (principal); F33.0 Major depressive disorder, recurrent, mild; E78.5 Hyperlipidemia, unspecified
CPT/HCPCS: 36415; 80053; 80061; 82306; 83970

== ENCOUNTER 2022-06-08 11:55 | Outpatient (REF) | payer OTHER, SELFPAY ==
[2022-06-08 14:50] LABS: Total Volume 24 Hour Urine 1600 mL
[2022-06-08 15:01] LABS: Creatinine, 24Hr Urine 1.6 G/Day (1.0-2.0); Creatinine, mg/dL 99.04
[2022-06-10 17:14] LABS: Calcium, 24 Hr Urine 221 mg/24 h; Calcium/Creatinine Ratio 145 mg/g creat (30-275); Creatinine 24Hr Urine 1.52 g/24 h (0.50-2.15)
== END 2022-06-08 11:56 | disposition home or self-care (01) ==
LOC: HO.10HDLNP 11:55
PROVIDERS: Visit Provider Internal Medicine Endocrinology, Diabetes & Metabolism
DX: E21.3 Hyperparathyroidism, unspecified (principal)
CPT/HCPCS: 82340; 82570

== ENCOUNTER → 2022-07-19 07:34 | Outpatient (BNVA) | payer OTHER, SELFPAY | PROVIDERS: PCP Internal Medicine; Visit Provider Nurse Practitioner Family | DX: G43.909 Migraine, unspecified, not intractable, without status migrainosus (principal); G47.19 Other hypersomnia; G47.9 Sleep disorder, unspecified; R06.83 Snoring; R51.9 Headache, unspecified; R20.2 Paresthesia of skin; H53.9 Unspecified visual disturbance | CPT/HCPCS: 99202 ==

== ENCOUNTER → 2022-07-29 14:52 | Outpatient (REF) | payer OTHER, SELFPAY | LOC: HO.SL 14:52 | PROVIDERS: PCP Internal Medicine; Visit Provider Nurse Practitioner Family | DX: G47.19 Other hypersomnia (principal); G47.9 Sleep disorder, unspecified; R06.83 Snoring | CPT/HCPCS: 95806 ==

== ENCOUNTER 2022-08-06 09:39 | Outpatient (REF) | payer OTHER, SELFPAY ==
--- NOTE | ~2022-08-06 | MM_ITS ---
EXAMINATION: MM SCREENING DIGITAL BREAST TOMOSYNTHESIS, BILATERAL CLINICAL INFORMATION: Screening. Asymptomatic. The lifetime risk of breast cancer based on the Tyrer-Cuzick Model is 10.5%. COMPARISON: Mammography: June 14, 2021 and studies dating back to December 01, 2016 TECHNIQUE: Digital breast tomosynthesis is performed in both the craniocaudal and mediolateral oblique views along with computer-aided detection (CAD). Synthesized 2D images are generated from the tomosynthesis. FINDINGS: There are scattered areas of fibroglandular density (ACR BI-RADS breast composition Category b). There are no significant masses, abnormal calcifications, or other abnormalities. MM/MM tomosynthesis screening BI IMPRESSION: No significant changes ASSESSMENT: BI-RADS 1: Negative RECOMMENDATION: Routine annual mammography screening. This patient's information was entered into a reminder system with a target due date for their next mammogram.
== END 2022-08-06 09:40 | disposition home or self-care (01) ==
LOC: HO.MAMMO 09:39
PROVIDERS: PCP Internal Medicine; Visit Provider Internal Medicine
DX: Z12.31 Encounter for screening mammogram for malignant neoplasm of breast (principal)
CPT/HCPCS: 77063; 77067

== ENCOUNTER 2022-09-08 09:09 | Outpatient (REF) | payer OTHER, SELFPAY ==
[2022-09-08 11:11] LABS: Estimated Glomerular Filt Rate > 60
[2022-09-08 11:29] LABS: Vitamin D 25-OH Total 41.8 ng/mL (>30)
== END 2022-09-08 09:10 | disposition home or self-care (01) ==
LOC: HO.10HDL 09:09
PROVIDERS: Visit Provider Internal Medicine Endocrinology, Diabetes & Metabolism
DX: E21.3 Hyperparathyroidism, unspecified (principal)
CPT/HCPCS: 36415; 82306; 82565

== ENCOUNTER 2022-11-04 10:14 | Outpatient (REF) | payer OTHER, SELFPAY ==
--- NOTE | ~2022-11-04 | MR_ITS ---
EXAMINATION: MR BRAIN WITHOUT AND WITH CONTRAST CLINICAL INFORMATION: Visual disturbance. Headache. Paresthesia. Bilateral temporal swelling. COMPARISON: None available. TECHNIQUE: MRI of the brain was obtained using routine sequences without and following the administration of 8 mL of Gadavist intravenous contrast. FINDINGS: No focal restricted diffusion is demonstrated to suggest acute or subacute cerebral ischemia. No evidence of acute or chronic hemorrhagic products on heme-sensitive imaging. Minimal nonspecific periventricular T2 FLAIR hyperintensity. No additional parenchymal signal abnormalities. The ventricles are normal in morphology and size. No abnormal mass effect. No midline shift. Normal appearance of the pituitary gland. Normal positioning of the cerebellar tonsils. Normal arterial and venous vascular flow voids are present. No abnormal contrast enhancement. Normal, homogeneous marrow signal. Mild mucosal thickening of the paranasal sinuses. No signal abnormalities within the mastoids. MR/MR head/brain wo/w con IMPRESSION: 1. No acute intracranial abnormalities. No abnormal intracranial enhancement. 2. Minimal nonspecific white matter changes. 3. No additional MRI abnormalities to explain the patient's symptoms.
== END 2022-11-04 10:15 | disposition home or self-care (01) ==
LOC: HO.MRI 10:14
PROVIDERS: PCP Internal Medicine; Visit Provider Nurse Practitioner Family
DX: H53.9 Unspecified visual disturbance (principal); R20.2 Paresthesia of skin; R51.9 Headache, unspecified
CPT/HCPCS: 70553; A9585

== ENCOUNTER 2022-11-10 08:56 | Outpatient (REF) | payer OTHER, SELFPAY ==
[2022-11-10 10:35] LABS: MANUAL DIFF FLAG NO
[2022-11-10 10:58] LABS: Basophils Absolute Auto 0.1 X10*3/uL (0.0-0.2); Basophils Percent Auto 0.9 % (0-2); Eosinophils Absolute Auto 0.4 X10*3/uL (0.0-0.4); Eosinophils Percent Auto 3.7 % (0-4); Hemoglobin 12.6 g/dl (12.0-16.0); Imm Gran Abs Auto 0.05 X10*3/uL (0.00-0.03); Imm Gran Pct Auto 0.4 % (0.0-0.4); Lymphocytes Absolute Auto 3.2 X10*3/uL (1.2-4.9); Lymphocytes Percent Auto 28.2 % (20-40); Mean Corpuscular HGB Conc 30.7 g/dl (31.0-35.0); Mean Corpuscular Hemoglobin 25.7 pg (27.0-33.0); Mean Corpuscular Volume 83.5 fL (80.0-98.0); Monocytes Absolute Auto 0.9 X10*3/uL (0.1-1.2); Monocytes Percent Auto 7.8 % (2-11); Neutrophils Absolute Auto 6.6 x10*3/uL (2.0-8.3); Platelet Count 362 X10*3/uL (160-400); Red Blood Count 4.91 X10*6/uL (4.20-5.50); Red Cell Distribution Width 14.6 % (11.0-16.0); White Blood Count 11.2 X10*3/uL (4.8-10.8)
== END 2022-11-10 08:57 | disposition home or self-care (01) ==
LOC: HO.LAB 08:56
PROVIDERS: PCP Internal Medicine; Visit Provider Nurse Practitioner
DX: Z01.818 Encounter for other preprocedural examination (principal); K21.9 Gastro-esophageal reflux disease without esophagitis; J45.909 Unspecified asthma, uncomplicated; E21.3 Hyperparathyroidism, unspecified; R11.2 Nausea with vomiting, unspecified; K59.00 Constipation, unspecified
CPT/HCPCS: 36415; 85025; 99202

== ENCOUNTER 2022-11-10 08:56 | Outpatient (AMB) | payer OTHER, SELFPAY ==
--- NOTE | 2022-11-10 09:03 | A.OFFVIS_ITS ---
Intake Vital Signs 11/10/22 09:21 Height 5 ft 2 in Weight 171 lb 8.314 oz BMI 31.4 BP 112/72 Blood Pressure Location Rt brachial Position Sitting Pulse 78 Intake Visit Reasons: GASTRO and COLO Intake Note: Patient presents to in office visit today for colonoscopy screening. CC: c/o constipation, GERD, halitosis, bad taste in her mouth, nausea, and abdominal pain. Denies other GI symptoms Facility Practice Specialist Required: Yes Accompanied by: Self / Same As Patient Allergies No Known Allergies [No Known Allergies*] Allergy (Verified 11/10/22 09:25) HPI GASTRO and COLO HPI Details 46-year-old female here for preprocedural meeting to discuss a screening colonoscopy. She also has trouble with GERD. She is referred by Margo Barragan of [facility] primary care. PMX Asthma Obesity Hyperparathyroidism High cholesterol Sodjourn syndrome Transaminitis Menometrorrhagia Depression/anxiety Iron deficiency anemia SURGICAL HISTORY section Tubal ligation Right breast biopsy *. ALLERGIES: NKDA * [facility] LABS: Laboratory Tests 06/07/22 08:09 Estimated GFR > 60 Total Bilirubin 0.3 AST 19 ALT 23 Alkaline Phosphata se 123 H TODAY'S VISIT Serbian Reed Landrum This is her first colonoscopy. She is having a lot of acid brash up through her nose and mouth. She has severe CIC as well moving her bowels for a week, she treats this with magnesium 400mg qhs. However she needs more help, because she has incomplete evacuation. She will have soft to hard stools that are dry. We will try adding senna qhs 1- 2 tabs. For the GERD she is on Prilosec 20 mg qam, which has helped with her past hx of vomiting, she only has problems when she skips a dose and she feels this is suf ficient. But she has dysphagia of solid foods with feeling of its not going down fast enough, below the sternal notch, this is even with drinking liquids to try to help the solid foods down. She smells a bad odor on her own breath. She has nausea ALWAYS. She also experiences early satiety. She admits she eats a lot of sweets because other foods don't sit well. Meats especially. She has cramping pain in the RUQ, LUQ at times, likely r/t CIC. We will start her on senna and titrate. She should continue the magnesium. There are no prior problems with anesthesia or sedation. Her asthma is well controlled and she denies cardiac problems. No ID problems. There is no known FHX of CRc or polyps or stomach cancer. I am going to be ordered the barium swallow any gastric emptying study going forward along with some basic labs an H pylori stool study. Obviously were ordering an EGD and colonoscopy. We may need to consider the addition of Reglan depending on how she response to restoring bowel motility. ROV 2 weeks. [facility] Medical History Abscess Allergic rhinitis Anxiety Depression Epidermal cyst GERD (gastroesophageal reflux disease) Hypercalcemia Hyperparathyroidism KRYSTLE (iron deficiency anemia) Mild asthma Mild recurrent major depression Mixed hyperlipidemia Obese Physical exam Pure hypercholesterolemia Sjogrens syndrome Transaminitis Surgical History H/O right breast biopsy H/O tubal ligation H/O: History of endometrial ablation Family History Maternal Grandmother H/O cancer of uterus Paternal Grandmother History of breast cancer in adulthood Mother History of stroke History of lupus History of Sjogren's disease Father Cancer Social History Household Members: Spouse Housing: Apartment Alcohol intake: current Alcohol intake frequency: a few times a week Alcohol type: hard liquor Patient Tobacco Use Status: Current everyday Tobacco user Tobacco use type: Cigarette Cigarettes Per Day: 5 e-Cigarette/Vaping Use: Never Used Second Hand Smoke Exposure: No service: No Current occupational status: unemployed Cognitive needs: No Hearing needs: No Vision needs: Yes Female Reproductive History Menstrual Age of Menarche: 11 Review of Systems Const Denies fatigue, Denies fever(s), Denies night sweats, Reports poor appetite and Denies weight loss ENT Reports Normal hearing present, Denies dental pain, Denies dysphagia, Denies hearing loss, Denies mouth pain, Denies odynophagia, Denies throat swelling, Denies tongue swelling and Reports other (Dentition adequate) Card Reports no additional complaints Resp Reports no additional complaints GI Denies abdominal pain, Denies melena, Reports bloating, Denies hematochezia, Reports constipation, Denies GI cramping, Denies dysphagia, Denies excessive flatus, Reports early satiety, Reports heartburn, Denies diarrhea, Reports nausea, Denies odynophagia, Reports vomiting and Denies hematemesis Skin/Breast Denies pruritus, Denies lesions, Denies rash and Denies jaundice Neuro Reports Normal hearing present and Denies Abnormal speech present Endo Denies fatigue Aller/Immun Denies throat swelling and Denies tongue swelling Physical Exam Vital Signs: Last Vital Signs Pulse 78 11/10/22 09:21 BP 112/72 11/10/22 09:21 BMI result Body Mass Index 31.4 Const General: cooperative, no acute distress, well developed and well groomed Nutritional Appearance: well nourished and overweight Orientation/consciousness: oriented to person, oriented to place and oriented to time Limitations: language barrier HEENT Head: Yes normocephalic and Yes atraumatic Eyes General: appearance normal, both eyes and all related structures Pupils: Equal, round and reactive pupils present Neck Neck: Yes normal visual inspection and Yes no lymphadenopathy Thyroid: Thyroid normal Resp Effort & Inspection: normal respiratory effort and able to speak in complete sentences Auscultation: clear to auscultation bilaterally Cardio Rate: regular rate Rhythm: regular rhythm Heart sounds: Normal, physiologic split S2 sound present Peripheral pulses: radial pulses present and posterior tibial pulses present GI Inspection: No distended, No Abdominal panniculus present and Yes obesity Palpation (GI): Soft to palpation, Tenderness to palpation present (GI) (back to left flank and low back) in the LUQ, Guarding due to palpation present (GI) (mild) in the LUQ, not rigid and No hepatosplenomegaly present Percussion: Yes normal to percussion Auscultation: normal bowel sounds Rectal Exam - Female: deferred Skin General skin exam: no rashes or lesions noted, turgor normal, skin not dry, no jaundice, No spider nevi and no striae Rashes: no rashes Nails: normal Neuro General: oriented to person, oriented to place and oriented to time Cranial nerves: Yes Equal, round and reactive pupils present and Yes Normal hearing present Speech: No Abnormal speech present Extrem General: Yes normal to inspection, No clubbing, No cyanosis and No edema Psych Appearance: grossly normal and well kempt Mental Status: mental status grossly normal Speech and movement: Normal speech and movement present Affect: normal affect Attitude: cooperative Thought process: Normal thought process present and not confabulating Thought content: Normal thought content present Insight: Limited insight present (Psych) Judgement: Limited judgement present (Psych) Assessment & Plan Assessment & Plan (1) Pre-op examination: Code(s): Z01.818 - Encounter for other preprocedural examination Plan: Serbian #Marga Landrum This is her first colonoscopy. She is having a lot of acid brash up through her nose and mouth. She has severe CIC as well moving her bowels for a week, she treats this with magnesium 400mg qhs. However she needs more help, because she has incomplete evacuation. She will have soft to hard stools that are dry. We will try adding senna qhs 1- 2 tabs. For the GERD she is on Prilosec 20 mg qam, which has helped with her past hx of vomiting, she only has problems when she skips a dose and she feels this is sufficient. But she has dysphagia of solid foods with feeling of its not going down fast enough, below the sternal notch, this is even with drinking liquids to try to help the solid foods down. She smells a bad odor on her own breath. She has nausea ALWAYS. She also experiences early satiety. She admits she eats a lot of sweets because other foods don't sit well. Meats especially. She has cramping pain in the RUQ, LUQ at times, likely r/t CIC. We will start her on senna and titrate. She should continue the magnesium. There are no prior problems with anesthesia or sedation. Her asthma is well controlled and she denies cardiac problems. No ID problems. There is no known FHX of CRc or polyps or stomach cancer. I am going to be ordered the barium swallow any gastric emptying study going forward along with some basic labs an H pylori stool study. Obviously were ordering an EGD and colonoscopy. We may need to consider the addition of Reglan depending on how she response to restoring bowel motility. ROV 2 weeks. (2) Mild asthma: Code(s): J45.909 - Unspecified asthma, uncomplicated (3) Hyperparathyroidism: Code(s): E21.3 - Hyperparathyroidism, unspecified (4) Nausea and vomiting: Code(s): R11.2 - Nausea with vomiting, unspecified (5) Constipation: Code(s): K59.00 - Constipation, unspecified Orders: Orders [place] barium swallow Today R11.2 - Nausea with vomiting, unspecified NM gastric emptying study Today R11.2 - Nausea with vomiting, unspecified H pylori Ag Stool Today K59.00 - Constipation, unspecified, R11.2 - Nausea with vomiting, unspecified Complete Blood Count Auto Diff Today K59.00 - Constipation, unspecified, R11.2 - Nausea with vomiting, unspecified Medications: New sennosides (Senna Laxative) 17.2 mg (2 x 8.6 mg) PO BEDTIME 60 tabs 3RF K59.00 - Constipation, unspecified Coding Level of Care Code New Pt Level 3 (93059) Diagnoses Pre-op examination Z01.818 Mild asthma J45.909 Hyperparathyroidism E21.3 Nausea and vomiting R11.2 Constipation K59.00
[2022-11-10 09:21] VITALS: BP 112/72; PULSE 78; BMI 31.4
== END 2022-11-10 10:22 | disposition home or self-care (01) ==
PROVIDERS: PCP Internal Medicine; Visit Provider Nurse Practitioner
DX: Z01.818 Encounter for other preprocedural examination (principal); Z12.11 Encounter for screening for malignant neoplasm of colon; K59.04 Chronic idiopathic constipation; K21.9 Gastro-esophageal reflux disease without esophagitis; R11.0 Nausea
CPT/HCPCS: 99203

== ENCOUNTER 2022-11-23 10:54 | Outpatient (AMB) | payer OTHER, SELFPAY ==
[2022-11-23 11:01] VITALS: BP 105/73; PULSE 81; BMI 32.1
--- NOTE | 2022-11-23 11:01 | A.OFFVIS_ITS ---
Intake Vital Signs 11/23/22 11:01 Height 5 ft 2 in Weight 175 lb 4.28 oz BMI 32.1 BP 105/73 Pulse 81 Intake Visit Reasons: f/u hyperparathyroidism Intake Note: Patient presents today for a hyperparathyroidism follow visit. Cyber Forensic Specialist Required: Yes Cyber Forensic Specialist Language: Senegalese Information Interpreted: non-clinical & clinical Accompanied by: Self / Same As Patient Allergies No Known Allergies [No Known Allergies*] Allergy (Verified 11/23/22 11:05) Medication List - Last Reconciled 11/23/22 by Herrera Purvis MD cetirizine (All Day Allergy (cetirizine)) 10 mg PO DAILY PRN 90 days cholecalciferol (vitamin D3) (Vitamin D3) 50 mcg PO DAILY clonazepam 0.5 mg PO Q8H PRN fluticasone propionate 50 mcg/actuation (Flonase Allergy Relief) 1 spray intranasal DAILY 30 days fluticasone propionate 44 mcg/actuation (Flovent HFA) 2 puffs inhalation BID 30 days hydroxyzine HCl 25 mg PO BID magnesium oxide 400 mg PO BEDTIME 30 days omeprazole 20 mg PO DAILY PRN 90 days rosuvastatin 10 mg PO BEDTIME 90 days sennosides (Senna Laxative) 17.2 mg (2 x 8.6 mg) PO BEDTIME sumatriptan succinate 50 - 100 mg orally at onset of headache, may repeat in 2 hrs PRN; max 2 tabs per day or 4 tabs/week (may take with Tylenol) 30 days topiramate 25 mg PO BEDTIME 90 days zolpidem 10 mg PO BEDTIME PRN 30 days HPI HPI Comments History of Present Illness Details 46 YO F with who is seen in consultation at the request of PCP for Hypercalcemia. First noted to have high calcium 08/2021. .Started 8 mos ago Not Currently using Calcium supplement . Takes 2000 IU of Vitamin D daily.On vitamin D for 6 mos Not Currently using HCTZ. Kidney stones: ?Yes in 11/2021 Osteoporosis: No History of [place] use: no Biotin use: Yes Family history of high calcium or kidney stones: No Renal imaging: ? DXA: Labs: Consistent with primary hyperparathyroidism with prior history of kidney stones [facility] Medical History Abscess Allergic rhinitis Anxiety Depression Epidermal cyst GERD (gastroesophageal reflux disease) Hypercalcemia Hyperparathyroidism KRYSTLE (iron deficiency anemia) Mild asthma Mild recurrent major depression Mixed hyperlipidemia Obese Physical exam Pure hypercholesterolemia Sjogrens syndrome Transaminitis Surgical History H/O right breast biopsy H/O tubal ligation H/O: History of endometrial ablation Family History Maternal Grandmother H/O cancer of uterus Paternal Grandmother History of breast cancer in adulthood Mother History of stroke History of lupus History of Sjogren's disease Father Cancer Social History Household Members: Spouse Housing: Apartment Alcohol intake: current Alcohol intake frequency: a few times a week Alcohol type: hard liquor Patient Tobacco Use Status: Current everyday Tobacco user Tobacco use type: Cigarette Cigarettes Per Day: 5 e-Cigarette/Vaping Use: Never Used Second Hand Smoke Exposure: No service: No Current occupational status: unemployed Cognitive needs: No Hearing needs: No Vision needs: Yes Female Reproductive History Menstrual Age of Menarche: 11 Physical Exam Vital Signs: Last Vital Signs Pulse 81 11/23/22 11:01 BP 105/73 11/23/22 11:01 BMI result Body Mass Index 32.1 Assessment & Plan Assessment & Plan (1) Hyperparathyroidism: Code(s): E21.3 - Hyperparathyroidism, unspecified Plan: This is a 46-year-old female found to have an labs consistent with primary hyperparathyroidism. Patient is not vitamin-D replete The plan is to send the patient for parathyroid exploration to Dr. Benites . Continue vitamin-D supplementation Orders: Referrals General Surgery Referral E21.3 - Hyperparathyroidism, unspecified Coding Level of Care Code Est Pt Level 3 (04403) Diagnoses Hyperparathyroidism E21.3
== END 2022-11-23 12:36 | disposition home or self-care (01) ==
PROVIDERS: PCP Internal Medicine; Visit Provider Internal Medicine Endocrinology, Diabetes & Metabolism
DX: E21.3 Hyperparathyroidism, unspecified (principal)
CPT/HCPCS: 99213

== ENCOUNTER → 2022-11-23 10:54 | Outpatient (BNVA) | payer OTHER, SELFPAY | PROVIDERS: Visit Provider Internal Medicine Endocrinology, Diabetes & Metabolism | DX: E21.3 Hyperparathyroidism, unspecified (principal); D50.9 Iron deficiency anemia, unspecified; E78.2 Mixed hyperlipidemia | CPT/HCPCS: 99212 ==

== ENCOUNTER → 2022-12-01 08:05 | Outpatient (REF) | payer OTHER, SELFPAY ==
--- NOTE | ~2022-12-01 | NM_ITS ---
EXAMINATION: RADIONUCLIDE SOLID FOOD GASTRIC EMPTYING 4-HOUR STUDY CLINICAL INFORMATION: Nausea with vomiting, unspecified. COMPARISON: No previous gastric emptying study is available for comparison. TECHNIQUE: A standard meal consisting of 4 oz of Egg Beaters brand tagged with 980 microcuries Tc-99m Sulfur Colloid, 8 oz water and 2 slices of toast with jelly was administered orally to the patient. Images were obtained using a dual head gamma camera in the anterior and posterior projections over of the stomach immediately post ingestion and at hourly intervals up to 3 hours post ingestion. Images were not obtained at 4 hours due to the minimal retention at 3 hours. The anterior and posterior counts at each time interval were averaged using the geometric mean and expressed as percentage of the immediate post ingestion counts. FINDINGS: There is good visualization of activity in the stomach immediately post ingestion. As the study progresses, there is good clearance of activity from the stomach and visualization of progressively increasing small bowel activity. By the end of the study, there is almost no retention noted in the stomach. Retention in the stomach at each time interval was: 1 hour 50% (normal 37%-90%) 2 hours 2% (normal 30%-60%) 3 hours 2% 4 hours (Not Obtained) (normal 0%-10%) NM/NM gastric emptying study IMPRESSION: Normal solid food gastric emptying study.
== END ==
LOC: HO.NUCMED 08:05
PROVIDERS: PCP Internal Medicine; Visit Provider Nurse Practitioner
DX: R11.2 Nausea with vomiting, unspecified (principal)
CPT/HCPCS: 78264; A9541

== ENCOUNTER 2022-12-23 09:56 | Outpatient (REF) | payer OTHER, SELFPAY ==
[2022-12-23 18:53] LABS: CT PCR NOT DETECTED (Not Detect.); NG PCR NOT DETECTED (Not Detect.)
[2022-12-24 12:06] LABS: BV Int Neg Control Negative (Negative); BV Int Pos Control Positive (Positive)
[2022-12-28 18:49] LABS: HPV mRNA E6/E7 rflx Not Detected (Not Detected)
== END 2022-12-23 09:57 | disposition home or self-care (01) ==
LOC: HO.LNP 09:56
PROVIDERS: Visit Provider Advanced Practice Midwife
DX: Z01.419 Encounter for gynecological examination (general) (routine) without abnormal findings (principal); N92.1 Excessive and frequent menstruation with irregular cycle; N95.1 Menopausal and female climacteric states; R09.81 Nasal congestion; N83.299 Other ovarian cyst, unspecified side; Z11.3 Encounter for screening for infections with a predominantly sexual mode of transmission; Z79.899 Other long term (current) drug therapy
CPT/HCPCS: 0353U; 87480; 87510; 87624; 87660; 88142

== ENCOUNTER 2022-12-23 09:56 | Outpatient (AMB) | payer OTHER, SELFPAY ==
--- NOTE | 2022-12-23 10:01 | A.OFFVIS_ITS ---
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 Irregular menses. Systems Support Officer Required: Yes Systems Support Officer Language: Danish Information Interpreted: non-clinical & clinical Wire Photo Operator News: Wire Photo Operator News Present (Aidyn) Allergies No Known Allergies [No Known Allergies*] Allergy (Verified 12/23/22 10:05) Medication List - Last Reconciled 12/23/22 by Keri Izaguirre CNM cetirizine (All Day Allergy (cetirizine)) 10 mg PO DAILY PRN 90 days cholecalciferol (vitamin D3) (Vitamin D3) 50 mcg PO DAILY 90 days clonazepam 0.5 mg PO Q8H PRN fluticasone propionate 50 mcg/actuation (Flonase Allergy Relief) 1 spray intranasal DAILY 30 days fluticasone propionate 44 mcg/actuation (Flovent HFA) 2 puffs inhalation BID 30 days hydroxyzine HCl 25 mg PO BID magnesium oxide 400 mg PO BEDTIME 30 days omeprazole 20 mg PO DAILY PRN 90 days rosuvastatin 10 mg PO BEDTIME 90 days sennosides (Senna Laxative) 17.2 mg (2 x 8.6 mg) PO BEDTIME sumatriptan succinate 50 - 100 mg orally at onset of headache, may repeat in 2 hrs PRN; max 2 tabs per day or 4 tabs/week (may take with Tylenol) 30 days topiramate 25 mg PO BEDTIME 90 days zolpidem 10 mg PO BEDTIME PRN 30 days Is last menstrual period known: Yes Last menstrual period: 12/06/22 Post menopausal: No HPI 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 Additionally she is complaining of her periods coming again very heavy and close she had a period for 3 days November 15 and then on December 06 she had a very heavy menses for many days . Additionally she is complaining of vaginal itching. She had endometrial ablation with Dr. Ramirez after a Mirena did nothing for her and she was bleeding so much that she had her hemoglobin down to 5. She also has had 3 C sections and her uterus is stuck in the front and her cervix is way up on top and so she needs a long large speculum. Also had a history of cysts and fibroids. Her last Pap was 2017 she also wants an STD check. [facility] Medical History Abscess Allergic rhinitis Anxiety Depression Epidermal cyst GERD (gastroesophageal reflux disease) Hypercalcemia Hyperparathyroidism KRYSTLE (iron deficiency anemia) Mild asthma Mild recurrent major depression Mixed hyperlipidemia Obese Physical exam Pure hypercholesterolemia Sjogrens syndrome Transaminitis Surgical History H/O right breast biopsy H/O tubal ligation H/O: History of endometrial ablation Family History Maternal Grandmother H/O cancer of uterus Paternal Grandmother History of breast cancer in adulthood Mother History of stroke History of lupus History of Sjogren's disease Father Cancer Social History Household Members: Spouse Housing: Apartment Alcohol intake: current Alcohol intake frequency: a few times a week Alcohol type: hard liquor Patient Tobacco Use Status: Current everyday Tobacco user Tobacco use type: Cigarette Cigarettes Per Day: 5 e-Cigarette/Vaping Use: Never Used Second Hand Smoke Exposure: No service: No Current occupational status: unemployed Cognitive needs: No Hearing needs: No Vision needs: Yes Female Reproductive History Menstrual Age of Menarche: 11 Duration of menses: >10 days Date of last menstrual period: 12/06/22 control method: other (tubal ligation) Total pregnancies: 3 Full term: 3 Number of Living Children: 3 Date of last pap smear: 01/27/17 (negative) Date of Mammogram: 08/06/22 Physical Exam Vital Signs: Last Vital Signs BP 116/62 12/23/22 10:05 BMI result Body Mass Index 31.8 Const General: healthy appearing, comfortable, no acute distress, well developed and alert Nutritional Appearance: average body habitus Orientation/consciousness: patient oriented x3 Limitations: no limitations HEENT Head: Yes normocephalic Neck Neck: Yes normal visual inspection Chest Chest palpation & inspection: normal inspection of the chest Breast/axilla inspection: normal inspection of the breasts and normal inspection of the axillae Breast/axilla palpation: normal palpation of the breasts and normal palpation of the axillae Resp Effort & Inspection: normal respiratory effort GI Inspection: Yes normal to inspection, No Abdominal wall edema and No distended Palpation (GI): Soft to palpation and nontender Other: Patient was complaining of itching all over and was scratching on her skin , No external lesions per se. Skin just appears dry. Vagina also appears dry consistent with perimenopause still changes. Very very difficult to visualize her cervix with both a long large speculum that she recommended and also a long thin speculum. Done somewhat blindly cervix is small thin and flattened against anterior vaginal wall uterus is small very difficult to palpate no adnexal masses. No abnormal discharge in fact everything appears very dry will recommend Monistat for comfort use. Discussed the possibility of an inadequate Pap if it is inadequate will have the patient see another provider to attempt repeat. General: Yes bladder normal to palpation External Female Exam: normal external appearance and normal appearance of the urethra Speculum Exam - Vagina: normal appearance of the vagina, normal palpation and normal vaginal discharge Speculum Exam - Cervix: normal appearance of the cervix, normal palpation and nontender Bimanual exam- vagina & uterus: normal bimanual exam, normal palpation, uterine size normal, bladder normal to palpation, consistency normal, normal palpation, uterine mobility normal, uterine shape normal, No Cervical tenderness present, non-tender and no cervical motion tenderness Bimanual Exam- Adnexa, other: normal adnexae, no masses, normal and No adnexal tenderness Neuro General: patient oriented x3 Results Reviewed Results Reviewed: [address] [address] Ultrasound Report Signed Patient: Mary Davis MR#: [id number] : 1975 Acct:[id number] Age/Sex: 45 / F ADM Date: 06/23/21 Loc: HO.US Attending Dr: Jacques Ramirez MD Ordering Physician: Jacques Ramirez MD Date of Service: 06/23/21 Procedure(s): US pelvic and transvaginal Accession Number(s): [id number] cc: Jacques Ramirez MD~ EXAMINATION:? US PELVIS CLINICAL INFORMATION:? Other ovarian cyst, unspecified side. COMPARISON: Ultrasound pelvis 03/12/2021 TECHNIQUE: Ultrasound of the pelvis is performed using both transabdominal and transvaginal transducers along with Doppler. Transvaginal imaging is performed due to inadequate visualization transabdominally. FINDINGS: Uterus: The uterus is anteverted, retroflexed and measures 10.4 x 4.5 x 5.8 cm. The double wall endometrial thickness is 0.91 cm.? The uterus is smooth in contour and has normal myometrial echogenicity. There is a hypoechoic lesion in the anterior right upper body of uterus measuring of 1.9 x 1.5 x 2.1 cm. Previously it measured 1.4 x 1.5 x 0.9 cm. A second fibroid seen previously in the left fundus is not seen at this time. There are small nabothian cysts seen in the cervix. Adnexa: Both ovaries are visualized. There is normal color flow to the adnexa. There is no ovarian torsion. There is no pelvic ascites or fluid collection. Right ovary measures 3.9 x 1.4 x 1.6 cm and volume 4.8 mL best visualized on transabdominal ultrasound. Left ovary measures 5.3 x 3.5 x 2.6 cm and volume 26.0 mL. There is a complex anechoic cyst measuring 4.3 x 3.1 x 3.1 cm. Previously left ovary measured 4.5 x 2.5 x 2.5 cm. US/US pelvic and transvaginal IMPRESSION: Small uterine fibroid in the anterior right upper body of uterus shows minimal increase to no change. Second fibroid seen previously in the left body of uterus is not visualized. ? Complex cyst left ovary. ? Several nabothian cysts seen in the cervix. Dictated By: Valentin Bryson MD Signed By: <Electronically signed by Valentin Bryson MD in OV> 06/24/21 1610 DD/ 1435 TD/TT:? Floor Winder: [facility] [place] Assessment & Plan Assessment & Plan (1) Menometrorrhagia: Comment: Status post endometrial ablation Code(s): N92.1 - Excessive and frequent menstruation with irregular cycle (2) Perimenopause: Code(s): N95.1 - Menopausal and female climacteric states (3) Vaginal dryness, menopausal: Code(s): N95.1 - Menopausal and female climacteric states (4) Screen for STD (sexually transmitted disease): Code(s): Z11.3 - Encounter for screening for infections with a predominantly sexual mode of transmission (5) Sinus congestion: Comment: Patient's sounds as if she has a URI but she denies symptoms. Code(s): R09.81 - Nasal congestion (6) Complex ovarian cyst: Comment: Resolved Code(s): N83.299 - Other ovarian cyst, unspecified side Plan She is up-to-date on her mammograms breast exam was within normal limits. Discussed her symptoms and they may very well just be related to tiff menopausal changes. I am ordering an ultrasound to see if she has increased growth of a fibroid or something else that could account for her symptoms of the irregular bleeding had close periods and the heavy. . Additionally she did have a cyst in the past maybe that has recurred. Testing being ordered at her request for STIs. I urged her not to scratch because that just makes everything worse and I will order Monistat [id number] cream for her to use vaginally when she needs it it may help with the vaginal itching even if yeast does not show up on the testing. Because her cervix was so very difficult to visualize as it is flattened and barely palpable against the upper vaginal wall it is quite likely that her Pap smear will come back inadequate and it if that is the case then a 2nd attempt should be offered with Dr. Ramirez. Additionally if there is any abnormality in the ultrasound that requires follow-up surgically with him that would be best discussed with him. The patient was wondering why her uterus and everything was not just taken out could she is not using it anymore. Orders: Orders Bacterial Vaginosis Panel Today Z01.419 - Encounter for gynecological examination (general) (routine) without abnormal findings CT NG by PCR Today Z01.419 - Encounter for gynecological examination (general) (routine) without abnormal findings Hepatitis B Surface Antigen Today N83.299 - Other ovarian cyst, unspecified side, N92.1 - Excessive and frequent menstruation with irregular cycle, N95.1 - Menopausal and female climacteric states, R09.81 - Nasal congestion, Z11.3 - Encounter for screening for infections with a predominantly sexual mode of transmission Hepatitis C Antibody Today N83.299 - Other ovarian cyst, unspecified side, N92.1 - Excessive and frequent menstruation with irregular cycle, N95.1 - Menopausal and female climacteric states, R09.81 - Nasal congestion, Z11.3 - Encounter for screening for infections with a predominantly sexual mode of transmission HIV Ab/Ag Today N83.299 - Other ovarian cyst, unspecified side, N92.1 - Excessive and frequent menstruation with irregular cycle, N95.1 - Menopausal and female climacteric states, R09.81 - Nasal congestion, Z11.3 - Encounter for screening for infections with a predominantly sexual mode of transmission Syphilis Screen Today N83.299 - Other ovarian cyst, unspecified side, N92.1 - Excessive and frequent menstruation with irregular cycle, N95.1 - Menopausal and female climacteric states, R09.81 - Nasal congestion, Z11.3 - Encounter for screening for infections with a predominantly sexual mode of transmission US pelvic and transvaginal Today N83.299 - Other ovarian cyst, unspecified side, N92.1 - Excessive and frequent menstruation with irregular cycle, N95.1 - Menopausal and female climacteric states, R09.81 - Nasal congestion Pap Smear Today Z01.419 - Encounter for gynecological examination (general) (routine) without abnormal findings Medications: New miconazole nitrate 2% (Miconazole-7) 1 appful vaginal BEDTIME 45 grams 2RF 7 days Coding Level of Care Code New Pt Prev Care 40-64y(52555) Diagnoses Menometrorrhagia N92.1 Perimenopause N95.1 Vaginal dryness, menopausal N95.1 Screen for STD (sexually transmitted disease) Z11.3 Sinus congestion R09.81 Complex ovarian cyst N83.299
[2022-12-23 10:05] VITALS: BP 116/62; BMI 31.8
== END 2022-12-23 10:59 | disposition home or self-care (01) ==
PROVIDERS: Visit Provider Advanced Practice Midwife
DX: Z01.411 Encounter for gynecological examination (general) (routine) with abnormal findings (principal); N92.1 Excessive and frequent menstruation with irregular cycle; N95.1 Menopausal and female climacteric states; R09.81 Nasal congestion; N83.299 Other ovarian cyst, unspecified side
CPT/HCPCS: 99396

== ENCOUNTER 2023-03-08 13:46 | Outpatient (AMB) | payer OTHER, SELFPAY ==
[2023-03-08 13:53] VITALS: BP 120/80; BMI 31.5
--- NOTE | 2023-03-08 13:53 | MHC.PC.OV ---
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: No Accompanied by: Self / Same As Patient Allergies No Known Allergies [No Known Allergies*] Allergy (Verified 03/08/23 14:11) Medication List - Last Reconciled 03/08/23 by Margo Graff MD cetirizine (All Day Allergy (cetirizine)) 10 mg PO DAILY PRN 90 days cholecalciferol (vitamin D3) (Vitamin D3) 50 mcg PO DAILY 90 days clonazepam 0.5 mg PO Q8H PRN fluticasone propionate 50 mcg/actuation (Flonase Allergy Relief) 1 spray intranasal DAILY 30 days fluticasone propionate 44 mcg/actuation (Flovent HFA) 2 puffs inhalation BID 30 days hydroxyzine HCl 25 mg PO BID magnesium oxide 400 mg PO BEDTIME 30 days omeprazole 20 mg PO DAILY PRN 90 days rosuvastatin 10 mg PO BEDTIME 90 days sennosides (Senna Laxative) 17.2 mg (2 x 8.6 mg) PO BEDTIME sumatriptan succinate 50 - 100 mg orally at onset of headache, may repeat in 2 hrs PRN; max 2 tabs per day or 4 tabs/week (may take with Tylenol) 30 days topiramate 25 mg PO BEDTIME 90 days zolpidem 10 mg PO BEDTIME PRN 30 days Tobacco use date assessed: 06/08/22 Dental Screening Dental Screen Date: 03/08/23 Did you have a dental visit in the last 12 months?: Yes Did you have a dental problem in the last 6 months where you did not have access to dental care?: No Was dental information given to patient?: Patient has dentist HPI HPI Comments History of Present Illness Details This is a 47-year-old female with mild recurrent major depression, mixed hyperlipidemia, migraines, allergic rhinitis and hyperparathyroidism that comes today for follow-up on her conditions. Depression has been in remission. On statins for her mixed hyperlipidemia. Migraines happen about 3 times a month and this is follow by Neurology. I will refill Topamax for migraine prophylaxis. Still has allergic rhinitis but has run out of antihistamines and will be refill. Has elevated parathyroid with normal vitamin-D and history of kidney stones. Will see surgeon Dr. Benites due to primary hyperparathyroidism on 04/08/2023. No chest pain or shortness of breath. Complains of macular skin lesions in size that has been present for about 3 months as well as upper limbs. Will order renal ultrasound due to history of kidney stones. Denies any follow-up with Urology. [facility] Medical History (Updated 03/08/23 @ 14:25 by Margo Graff MD) Mixed hyperlipidemia Hyperparathyroidism Transaminitis Physical exam Epidermal cyst Pure hypercholesterolemia Abscess Hypercalcemia Mild recurrent major depression Mild asthma Obese Allergic rhinitis Sjogrens syndrome GERD (gastroesophageal reflux disease) Depression Anxiety KRYSTLE (iron deficiency anemia) Surgical History History of endometrial ablation H/O tubal ligation H/O right breast biopsy H/O: Family History Maternal Grandmother H/O cancer of uterus Paternal Grandmother History of breast cancer in adulthood Mother History of stroke History of lupus History of Sjogren's disease Father Cancer Social History Household Members: Spouse Housing: Apartment Alcohol intake: current Alcohol intake frequency: a few times a week Alcohol type: hard liquor Patient Tobacco Use Status: Current everyday Tobacco user Tobacco use type: Cigarette Cigarettes Per Day: 5 e-Cigarette/Vaping Use: Never Used Second Hand Smoke Exposure: No service: No Current occupational status: employed Current occupational exposures/hazards: No Cognitive needs: No Hearing needs: No Vision needs: Yes Female Reproductive History Menstrual Age of Menarche: 11 Questionnaire Thrive Questionnaire Date Thrive assessed: 06/08/22 ZAY-7 AMB Questionnaire ZAY-7 Date ZAY - 7 assessed: 06/08/22 Source: Developed by Drs. Herrera Morrissey, Rosmery Dodson, Juanito Toussaint and colleagues, with an educational keila from [employer] Review of Systems Const All systems reviewed & are unremarkable except as noted in HPI and below Eyes Reports no additional complaints, Denies change in vision and Denies other visual disturbances Card Denies chest pain at rest, Denies chest pain with activity, Denies edema, Denies irregular heart rhythm, Denies claudication, Denies dyspnea, Denies dyspnea on exertion, Denies orthopnea, Denies paroxysmal nocturnal dyspnea and Denies slow heart rate Resp Denies cough, Denies dyspnea and Denies dyspnea on exertion GI Denies abdominal pain, Denies change in bowel habits, Denies excessive flatus, Denies nausea and Denies vomiting Denies urinary incontinence, Denies urinary hesitancy and Denies urinary urgency Musc Denies abnormal gait, Denies atrophy, Denies deformity and Denies limited range of motion Skin/Breast Denies bleeding lesions, Denies changing lesions and Denies rash Neuro Denies abnormal gait and Denies lack of coordination Physical exam (Primary Care) Vital Signs: Last Vital Signs BP 120/80 03/08/23 13:53 BMI result Body Mass Index 31.5 Tobacco/Smoking Status: Tobacco use Status Tobacco use date assessed 06/08/22 03/08/23 13:58 Patient Tobacco Use Status Current everyday Tobacco 03/08/23 13:58 Tobacco use type Cigarette 03/08/23 13:58 e-Cigarette/Vaping Use Never Used 03/08/23 13:58 Thrive Assessment: Date of Thrive Assessment Date Thrive assessed 06/08/22 03/08/23 13:58 Eyes General: appearance normal, both eyes and all related structures Eyelids: Yes eyelids normal Conjunctivae: conjunctivae normal Neck Neck: Yes normal visual inspection and Yes supple Resp Effort & Inspection: normal respiratory effort Auscultation: clear to auscultation bilaterally Cardio Jugular venous distension: no JVD Rate: regular rate Rhythm: regular rhythm Heart sounds: S1 normal heart sound present and S2 normal heart sound present Extrem General: Yes full ROM Office Procedures Flu Questionnaire Does the patient have a severe egg allergy?: No Results AMB Urinalysis, Automated UA Leukoctes 0 Augusto/uL Last Edit by ROQUE Be on 03/08/23 14:39 UA Nitrite Negative Last Edit by ROQUE Be on 03/08/23 14:39 UA Urobilinogen 0.2 mg/dL Last Edit by ROQUE Be on 03/08/23 14:39 UA Protein 0 mg/dL Last Edit by ROQUE Be on 03/08/23 14:39 UA pH 6.5 Last Edit by Bruna Yeager, ROQUE on 03/08/23 14:39 UA Blood 0 Siomne/uL Last Edit by Bruna Yeager, ROQUE on 03/08/23 14:39 UA Specific [place] 1.010 Last Edit by Bruna Yeager, ROQUE on 03/08/23 14:39 UA Ketone Negative Last Edit by Bruna Yeager, ROQUE on 03/08/23 14:39 UA Bilirubin 0 mg/dL Last Edit by Bruna Yeager, RMA on 03/08/23 14:39 UA Glucose 0 mg/dL Last Edit by Bruna Yeager, RMA on 03/08/23 14:39 Immunizations flu vacc [id number] 6mos up(PF) 60 mcg(15 mcgx4)/0.5 mL IM syringe Performing Provider: Margo Graff MD [facility] Documented (not given) by: ROQUE Be on 03/08/23 13:58 Reason Not Given: Patient Refused Results Reviewed Results Reviewed: Laboratory Last Values Urine pH (Auto) 6.5 03/08/23 14:38 Specific [place] (Auto) 1.010 03/08/23 14:38 Urine Protein (Auto) 0 mg/dL 03/08/23 14:38 Glucose (UA)(Auto) 0 mg/dL 03/08/23 14:38 Urine Ketones (Auto) Negative 03/08/23 14:38 Urine Blood (Auto) 0 Simone/uL 03/08/23 14:38 Urine Nitrite (Auto) Negative 03/08/23 14:38 Urine Bilirubin (Auto) 0 mg/dL 03/08/23 14:38 Urine Urobilinogen (Auto) 0.2 mg/dL 03/08/23 14:38 Leukocyte Esterase (Auto) 0 Augusto/uL 03/08/23 14:38 Assessment and Plan Assessment & Plan (1) Allergic rhinitis: Code(s): J30.9 - Allergic rhinitis, unspecified Plan: Continue antihistamines as needed. (2) Mild recurrent major depression: Code(s): F33.0 - Major depressive disorder, recurrent, mild Plan: In remission. (3) Hyperparathyroidism: Code(s): E21.3 - Hyperparathyroidism, unspecified Plan: Follow-up with surgeon in 04/08/2023. (4) Mixed hyperlipidemia: Code(s): E78.2 - Mixed hyperlipidemia Plan: Continue statins. (5) Migraines: Code(s): G43.909 - Migraine, unspecified, not intractable, without status migrainosus Plan: Continue sumatriptan as needed. Follow-up with Neurology. Continue Topamax for prophylaxis. Orders: Orders Comprehensive Met. Panel Today G43.909 - Migraine, unspecified, not intractable, without status migrainosus Influenza [id number] Immunization Today Z23 - Encounter for immunization US renal BI Today N20.0 - Calculus of kidney AMB Urinalysis Automated Today R30.0 - Dysuria Referrals Ophthalmology Referral H53.9 - Unspecified visual disturbance Dermatology Referral R23.9 - Unspecified skin changes Medications: Refilled cetirizine (All Day Allergy (cetirizine)) 10 mg PO DAILY 90 days PRN 90 tabs 0RF allergy symptoms topiramate 25 mg PO BEDTIME 90 days 90 tabs 1RF Coding Level of Care Code Est Pt Level 4 (59330) Diagnoses Allergic rhinitis J30.9 Mild recurrent major depression F33.0 Hyperparathyroidism E21.3 Mixed hyperlipidemia E78.2 Migraines G43.909 Time Spent (min) 22
== END 2023-03-08 14:34 | disposition home or self-care (01) ==
PROVIDERS: Visit Provider Internal Medicine
DX: J30.9 Allergic rhinitis, unspecified (principal); F33.0 Major depressive disorder, recurrent, mild; E21.3 Hyperparathyroidism, unspecified; E78.2 Mixed hyperlipidemia; G43.909 Migraine, unspecified, not intractable, without status migrainosus; R30.0 Dysuria
CPT/HCPCS: 81003; 99214

== ENCOUNTER 2023-04-05 14:50 | Outpatient (REF) | payer OTHER, SELFPAY ==
--- NOTE | ~2023-04-05 | US_ITS ---
EXAMINATION: US RETROPERITONEAL LIMITED (RENAL ONLY) CLINICAL INFORMATION: Calculus of kidney. COMPARISON: US abdomen complete with liver elastography 11/18/2021. TECHNIQUE: Real-time imaging of the kidneys. FINDINGS: RIGHT KIDNEY: 9.8 x 5.1 x 4.7 cm (SAG x AP x TRV). The kidney is normal in size, contour, and echogenicity. Renal cortical thickness is normal. No calculi or focal parenchymal lesions. No hydronephrosis. LEFT KIDNEY: 9.2 x 5.2 x 4.6 cm (SAG x AP x TRV). The kidney is normal in size, contour, and echogenicity. Renal cortical thickness is normal. No focal parenchymal lesions or hydronephrosis. 0.4 x 0.3 x 0.4 cm nonobstructing calculus is seen in the lower pole. US/US renal BI IMPRESSION: 1. Normal appearance of the right kidney. 2. 0.4 cm nonobstructing calculus in the lower pole of the left kidney.
== END 2023-04-05 14:51 | disposition home or self-care (01) ==
LOC: HO.US 14:50
PROVIDERS: PCP Internal Medicine; Visit Provider Internal Medicine
DX: N20.0 Calculus of kidney (principal)
CPT/HCPCS: 76775

== ENCOUNTER 2023-09-28 08:09 | Outpatient (AMB) | payer OTHER, SELFPAY ==
--- NOTE | 2023-09-28 08:18 | MHC.PC.OV ---
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 Furniture Required: No Accompanied by: Self / Same As Patient Allergies No Known Allergies [No Known Allergies*] Allergy (Verified 09/28/23 08:49) Medication List - Last Reconciled 09/28/23 by Margo Graff MD cetirizine (All Day Allergy (cetirizine)) 10 mg PO DAILY PRN 90 days fluticasone furoate 50 mcg/actuation (Arnuity Ellipta) 1 inh inhalation DAILY 30 days fluticasone propionate 50 mcg/actuation (Flonase Allergy Relief) 1 spray intranasal DAILY 30 days magnesium oxide 400 mg PO BEDTIME 30 days omeprazole 20 mg PO DAILY PRN 90 days rosuvastatin 10 mg PO BEDTIME 90 days sennosides (Senna Laxative) 17.2 mg (2 x 8.6 mg) PO BEDTIME sumatriptan succinate 50 - 100 mg orally at onset of headache, may repeat in 2 hrs PRN; max 2 tabs per day or 4 tabs/week (may take with Tylenol) 30 days topiramate 25 mg PO BEDTIME 90 days zolpidem 10 mg PO BEDTIME PRN 30 days Tobacco use date assessed: 09/28/23 Dental Screening Dental Screen Date: 09/28/23 Did you have a dental visit in the last 12 months?: Yes Did you have a dental problem in the last 6 months where you did not have access to dental care?: No Was dental information given to patient?: Patient has dentist HPI HPI Comments History of Present Illness Details This is a 47-year-old female with mild recurrent major depression that comes for her physical exam. Depression has been follow by counseling and she has on a waiting list for a psychiatrist. I will start her on venlafaxine at bedtime. Last mammogram was 08/12/2022 and she has an appointment for this month for another mammogram. Pap smear done 2022. Has never had a colonoscopy and will be refer through open access. No chest pain or shortness on breath. [facility] Medical History (Updated 09/28/23 @ 11:44 by Margo Graff MD) Physical exam Mixed hyperlipidemia Hyperparathyroidism Transaminitis Epidermal cyst Pure hypercholesterolemia Abscess Hypercalcemia Mild recurrent major depression Mild asthma Obese Allergic rhinitis Sjogrens syndrome GERD (gastroesophageal reflux disease) Depression Anxiety KRYSTLE (iron deficiency anemia) Surgical History History of thyroid surgery History of endometrial ablation H/O tubal ligation H/O right breast biopsy H/O: Family History (Updated 09/28/23 @ 08:54 by Margo Graff MD) Maternal Grandmother H/O cancer of uterus Paternal Grandmother History of breast cancer in adulthood Mother History of stroke History of lupus History of Sjogren's disease Father No problems noted. Social History Household Members: Spouse Housing: Apartment Alcohol intake: current Alcohol intake frequency: a few times a week Alcohol type: hard liquor Patient Tobacco Use Status: Current everyday Tobacco user Tobacco use type: Cigarette Cigarettes Per Day: 8 e-Cigarette/Vaping Use: Never Used Second Hand Smoke Exposure: No service: No Current occupational status: employed Current occupational exposures/hazards: No Cognitive needs: No Hearing needs: No Vision needs: Yes Female Reproductive History Menstrual Age of Menarche: 11 Questionnaire PHQ-9 Over the last 2 weeks, how often have you been bothered by any of the following problems? 1. Little interest or pleasure in doing things: several days 2. Feeling down, depressed, or hopeless: nearly every day 3. Trouble falling or staying asleep, or sleeping too much: several days 4. Feeling tired or having little energy: nearly every day 5. Poor appetite or overeating: several days 6. Feeling bad about yourself - or that you are a failure or have let yourself or your family down: not at all 7. Trouble concentrating on things, such as reading the newspaper or watching television: nearly every day 8. Moving or speaking so slowly that other people could have noticed. Or the opposite - being so fidgety or restless that you have been moving around a lot more than usual: nearly every day 9. Thoughts that you would be better off or of hurting yourself in some way: not at all Total score: 15 Depression Screening Interpretation: Positive (no suicidal thoughts) Depression Screening Follow-up: Existing condition, New Medication prescribed, Community Mental Health Worker F/U and Follow-up Visit Requested Depression Screening Done: Yes 75026 - PHQ-9 Billing: Yes Source: Developed by Drs. Herrera Morrissey, Rosmery Dodson, Juanito Toussaint and colleagues, with an educational keila from [employer]. Thrive Questionnaire Date Thrive assessed: 09/28/23 I am a: Patient What is your living situation today?: I have a steady place to live Within the past 12 months, did the food you bought not last and you didn't have the money to get more?: Never true Within the past 12 months, did you worry whether your food would run out before you got money to buy more?: Never true Do you have trouble paying for medicines?: No Do you have trouble getting transportation to medical appointments?: No Do you have trouble paying your heating and electricity bill?: No Do you have trouble taking care of your child, family member or friend?: No Do you have trouble with day-to-day activities such as bathing, preparing meals, shopping, managing finances, etc.?: No Are you currently unemployed and looking for a job?: No Are you interested in more education?: No Please select the resources that you would like help with: None Currently or been in a relationship where the following occur: no concerns reported THRIVE Score: 0 AUDIT C Alcohol Use Questionnaire (AUDIT-C) 1. How often do you have a drink containing alcohol?: Monthly or less 2. How many drinks containing alcohol do you have on a typical day when you are drinking?: 1 or 2 3. How often do you have six or more drinks on one occasion?: Never Total Score: 1 ZAY-7 AMB Questionnaire ZAY-7 Date ZAY - 7 assessed: 09/28/23 Feeling nervous, anxious, or on edge: 3 = Nearly every day Not being able to stop or control worryin = Not at all Worrying too much about different things: 1 = Several days Trouble relaxin = Not at all Being so restless that it is hard to sit still: 0 = Not at all Becoming easily annoyed or irritable: 3 = Nearly every day Feeling afraid as if something awful might happen: 1 = Several days Total ZAY-7 score (0-4 normal; 5-9 mild; 10-14 moderate; 15-21 severe): 8 Source: Developed by Drs. Herrera Morrissey, Rosmery Dodson, Juanito Toussaint and colleagues, with an educational keila from [employer]. ZAY-7 Assessment Billing ZAY-7 Assessment Tool: ZAY-7 Assessment 50786 Review of Systems Const All systems reviewed & are unremarkable except as noted in HPI and below Card Denies chest pain at rest, Denies chest pain with activity, Denies edema, Denies irregular heart rhythm, Denies claudication, Denies dyspnea, Denies dyspnea on exertion, Denies orthopnea, Denies paroxysmal nocturnal dyspnea and Denies slow heart rate Resp Denies cough, Denies dyspnea and Denies dyspnea on exertion Musc Denies abnormal gait, Denies atrophy, Denies deformity and Denies limited range of motion Neuro Denies abnormal gait, Denies confusion and Denies lack of coordination Psych Reports abnormal sleep pattern, Denies confusion and Reports depression Physical exam (Primary Care) Vital Signs: Last Vital Signs BP 120/82 09/28/23 08:27 BMI result Body Mass Index 33.3 BMI Assessment/Plan discussion: High BMI High, discussed plan: lifestyle, weight reduction, dietary, physical activity and alcohol moderation Tobacco/Smoking Status: Tobacco use Status Tobacco use date assessed 09/28/23 09/28/23 08:36 Patient Tobacco Use Status Current everyday Tobacco 09/28/23 08:36 Tobacco use type Cigarette 09/28/23 08:36 e-Cigarette/Vaping Use Never Used 09/28/23 08:36 Are you ready to quit: No Tobacco cessation counseling provided: Yes Items discussed: [employer]uitWorks Relapse Prevention: discussed the importance of a supportive environment, discussed negative mood or depression after quitting, weight gain after smoking is common and discussed dietary, exercise and/or lifestyle changes Number of minutes spent counselin CPT code: 97941 - 4-10 Minutes PHQ-9: PHQ-9 Score PHQ-9: Total score 15 09/28/23 09:07 Depression Screening Interpretation: Positive (no suicidal thoughts) Depression Screening Follow-up: Existing condition, New Medication prescribed, Community Mental Health Worker F/U and Follow-up Visit Requested Thrive Assessment: Date of Thrive Assessment Date Thrive assessed 09/28/23 09/28/23 08:19 Currently or been in a relationship where the following occur: no concerns reported Const General: No confusion Orientation/consciousness: patient oriented x3 and No confusion HENMT Head: Yes normal to inspection, Yes normocephalic and Yes atraumatic Ears: external ears normal Eyes General: appearance normal, both eyes and all related structures Eyelids: Yes eyelids normal Conjunctivae: conjunctivae normal Neck Neck: Yes normal visual inspection and Yes supple Resp Effort & Inspection: normal respiratory effort Auscultation: clear to auscultation bilaterally Cardio Jugular venous distension: no JVD Rate: regular rate Rhythm: regular rhythm Heart sounds: S1 normal heart sound present and S2 normal heart sound present GI Inspection: Yes normal to inspection Palpation (GI): Soft to palpation and nontender Auscultation: normal bowel sounds Skin General skin exam: no rashes or lesions noted Neuro General: patient oriented x3, no focal motor deficits and No confusion Extrem General: Yes full ROM Assessment and Plan Assessment & Plan (1) Physical exam: Code(s): Z00.00 - Encounter for general adult medical examination without abnormal findings Plan: Repeat in a year. (2) Mild recurrent major depression: Code(s): F33.0 - Major depressive disorder, recurrent, mild Plan: Continue counseling. Start venlafaxine at bedtime. Follow-up visit requested. Orders: Orders Vitamin D 25-OH Total Today E55.9 - Vitamin D deficiency, unspecified Lipid Panel Today E78.5 - Hyperlipidemia, unspecified Comprehensive Mcintosh. Panel Fast Today K21.9 - Gastro-esophageal reflux disease without esophagitis Referrals Open Access Screening Colonoscopy Referral Z12.11 - Encounter for screening for malignant neoplasm of colon Medications: New venlafaxine 37.5 mg PO BEDTIME 90 tabs 1RF 90 days semaglutide (weight loss) (Wegovy) administer weeks 1 through 4 of therapy 0.25 mg (0.5 mL) subcut QWEEK 2 mL 0RF 4 weeks Coding Level of Care Code Est Pt Prev Care 40-64y(06535) Diagnoses Physical exam Z00.00 Mild recurrent major depression F33.0 Additional Codes ZAY-7 Assessment Billing - ZAY-7 Assessment Tool: ZAY-7 Assessment 58246 ([id number]) Vital Signs *Quality* - CPT code: 12906 - 4-10 Minutes ([id number]) Time Spent (min) 35
[2023-09-28 08:27] VITALS: BP 120/82; BMI 33.3
== END 2023-09-28 09:05 | disposition home or self-care (01) ==
PROVIDERS: PCP Internal Medicine; Visit Provider Internal Medicine
DX: Z00.00 Encounter for general adult medical examination without abnormal findings (principal); F33.0 Major depressive disorder, recurrent, mild
CPT/HCPCS: 96127; 99396

== ENCOUNTER → 2023-12-21 14:58 | Outpatient (RCR) | payer OTHER, SELFPAY ==
[2020-03-07 11:42] VITALS: BMI 30.1
[2020-03-07 11:44] VITALS: BP 116/79; PULSE 79; RESP 18; TEMP 36.8; O2SAT 98
[2020-03-07 11:55] LABS: MANUAL DIFF FLAG NO
--- NOTE | 2020-03-07 12:01 | PM.HEMONCPN ---
Medical Summary - Medical Summary Chief complaint: Fatigue Medical Summary: Diagnosis: Iron deficiency; parenteral iron therapy Diagnosed with KRYSTLE in 2017, history of heavy menstrual blood losses. Mother and siblings with anemia. In Nov 2016, Hb 9.2, MCV 67.4. Underwent surgical procedure for uterine fibroids around December 2019. Tolerates parenteral iron therapy. Interval History Interval history: Patient is here in follow-up. She is doing okay, since her surgical procedure, her menstrual cycles have been tolerable and not too heavy. She stopped taking oral iron because it makes her nauseous and causes abdominal pain. She reports fatigue and generalized weakness. She wants to receive parenteral iron therapy since it makes her feel a lot better. She denies any chest pain, dizziness or palpitations. No shortness of breath or cough. Review of Systems - Constitutional Reports no additional constitutional complaints [facility] Medical History: Medical History (Last Reviewed 02/13/20 @ 13:38 by Katey Sierra CNM) Anxiety Depression GERD (gastroesophageal reflux disease) KRYSTLE (iron deficiency anemia) Sjogrens syndrome Family History: Family History (Last Reviewed 02/13/20 @ 13:38 by Katey Sierra CNM) Maternal Grandmother H/O cancer of uterus Paternal Grandmother History of breast cancer in adulthood Mother History of stroke History of lupus History of Sjogren's disease Surgical History: Surgical History (Last Reviewed 02/13/20 @ 13:38 by Katey Sierra CNM) H/O right breast biopsy H/O tubal ligation H/O: Oncology Screenings - ECOG Performance Status ECOG Performance Status: 1 Home Medications and Allergies Home Medications Medication Instructions Recorded Confirmed Type clonazepam 0.5 mg PO Q8H PRN 02/08/20 02/08/20 History zolpidem 10 mg PO BEDTIME 02/08/20 02/08/20 History hydroxyzine HCl 1 tab PO BID PRN 03/07/20 03/07/20 History ibuprofen 1 tab PO Q8H PRN 03/07/20 03/07/20 History Allergies Allergy/AdvReac Type Severity Reaction Status Date / Time No Known Allergies Allergy Verified 03/07/20 11:52 [No Known Allergies*] Exam Vital signs: Vital Signs Temp 98.2 F 03/07/20 11:44 Pulse 79 03/07/20 11:44 Resp 18 03/07/20 11:44 BP 116/79 03/07/20 11:44 Pulse Ox 98 03/07/20 11:44 Intake & Output 03/06/20 03/07/20 03/07/20 18:59 06:59 18:59 Other: Weight 74.7 kg Weight 74.7 kg Body Mass Index 30.1 - Constitutional Present: no acute distress - Routine HEENT Exam Head: Present: normal inspection Eye: Present: EOMI - Routine Neck Exam Absent: lymphadenopathy - Routine Respiratory Exam Present: CTAB. Absent: respiratory distress - Routine Cardiovascular Exam Cardiovascular: Present: S1, S2 Data - Labs CBC & Chem 7: 03/07/20 11:50 03/07/20 11:50 Progress Note: A/P (1) Iron deficiency anemia Status: Acute Assessment and plan: 1. This is a 43-year-old female with iron deficiency anemia related to metromenorrhagia. She is not able to tolerate oral iron because of GI side effects. Her last iron dextran therapy was in May 2019 with improvement in her anemia. Her iron saturation is again low at about 8% today. She reports persistent symptoms and would like another parenteral treatment of iron dextran. This is being scheduled in the next few days. Follow-up in 3 months. - Time Spent With Patient Total time spent is greater than 50% in coordination of care (as documented) at patient's floor/unit and/or counseling patient: 15 - 24 minutes
[2020-03-07 12:10] LABS: Basophils Absolute Auto 0.1 X10*3/uL (0.0-0.2); Basophils Percent Auto 0.7 % (0-2); Eosinophils Absolute Auto 0.2 X10*3/uL (0.0-0.4); Eosinophils Percent Auto 2.5 % (0-4); Hematocrit 37.3 % (37-47); Hemoglobin 11.2 g/dl (12.0-16.0); Imm Gran Abs Auto 0.02 X10*3/uL (0.00-0.03); Imm Gran Pct Auto 0.2 % (0.0-0.4); Lymphocytes Absolute Auto 2.5 X10*3/uL (1.2-4.9); Lymphocytes Percent Auto 28.2 % (20-40); Mean Corpuscular Hemoglobin 23.4 pg (27.0-33.0); Mean Platelet Volume 11.2 fL (9.4-12.3); Monocytes Absolute Auto 0.9 X10*3/uL (0.1-1.2); Monocytes Percent Auto 9.8 % (2-11); Neutrophils Absolute Auto 5.2 X10*3/uL (2.0-8.3); Neutrophils Percent Auto 58.6 % (45-73); Platelet Count 418 X10*3/uL (160-400); Red Blood Count 4.78 X10*6/uL (4.20-5.50); White Blood Count 8.8 X10*3/uL (4.8-10.8)
[2020-03-07 12:22] LABS: Alanine Aminotransferase 20 U/L (0-31); Albumin Level 4.3 g/dL (3.5-5.0); Alkaline Phosphatase 116 U/L (39-117); Anion Gap 11 (12-20); Aspartate Amino Transferase 21 U/L (5-31); Bilirubin Total 0.4 mg/dL (0.0-1.0); Blood Urea Nitrogen 8 mg/dL (9-16); Calcium 10.1 mg/dL (8.4-10.2); Carbon Dioxide 24 mmol/L (22-29); Chloride 105 mmol/L (96-108); Creatinine Clr Calc Pharmacy 67.2; Estimated Glomerular Filt Rate 60; Glucose Random 96 mg/dL (60-115); Potassium 4.2 mmol/l (3.3-5.1); Sodium 136 mmol/L (135-145)
[2020-03-07 12:36] LABS: Iron 36 mcg/dL (30-160); Percent Iron Saturation 8 % (15-50); Total Iron Binding Capacity 455 mcg/dL (228-428); Unsaturated Iron Binding 419 ug/dL
--- NOTE | 2020-03-07 14:11 | MHC.HEMONC ---
Patient booked for iron dextran 03/11/20 at am patient made aware with boiler house mechanic # [id number]. follow up in 3 months.
[2020-06-20 13:58] VITALS: BP 111/68; PULSE 93; RESP 12; TEMP 36.6; O2SAT 97; BMI 31.5
[2020-06-20 14:04] LABS: MANUAL DIFF FLAG NO
[2020-06-20 14:07] LABS: Basophils Absolute Auto 0.1 X10*3/uL (0.0-0.2); Basophils Percent Auto 0.7 % (0-2); Eosinophils Absolute Auto 0.4 X10*3/uL (0.0-0.4); Hematocrit 42.3 % (37-47); Hemoglobin 13.4 g/dl (12.0-16.0); Imm Gran Abs Auto 0.04 X10*3/uL (0.00-0.03); Imm Gran Pct Auto 0.4 % (0.0-0.4); Lymphocytes Absolute Auto 1.8 X10*3/uL (1.2-4.9); Lymphocytes Percent Auto 19.1 % (20-40); Mean Corpuscular HGB Conc 31.7 g/dl (31.0-35.0); Mean Corpuscular Volume 85.1 fL (80-98); Mean Platelet Volume 10.7 fL (9.4-12.3); Monocytes Percent Auto 10.4 % (2-11); Neutrophils Absolute Auto 6.1 X10*3/uL (2.0-8.3); Neutrophils Percent Auto 65.4 % (45-73); Platelet Count 303 X10*3/uL (160-400); Red Blood Count 4.97 X10*6/uL (4.20-5.50); Red Cell Distribution Width 15.9 % (11.0-16.0); White Blood Count 9.4 X10*3/uL (4.8-10.8)
--- NOTE | 2020-06-20 14:12 | PM.HEMONCPN ---
Medical Summary - Medical Summary Date of Service: 06/20/20 Chief complaint: Follow-up Medical Summary: Diagnosis: Iron deficiency; parenteral iron therapy Diagnosed with KRYSTLE in 2017, history of heavy menstrual blood losses. Mother and siblings with anemia. In Nov 2016, Hb 9.2, MCV 67.4. Underwent surgical procedure for uterine fibroids around December 2019. Tolerates parenteral iron therapy. Last iron dextran therapy was in March 2020. Interval History Interval history: Patient is here in follow-up. She is doing okay, she continues to have intermittent heavy menstrual bleeding. She did not tolerate made an IUD, she is scheduled to undergo surgery for her uterine fibroids. She tolerated iron dextran very well and she feels much better. She denies any symptoms such as fever, chills, fatigue, loss of appetite or weight loss. Review of Systems - Constitutional Reports as per HPI, Reports no additional constitutional complaints - Cardiovascular Reports no additional cardiovascular complaints - Respiratory Reports no additional respiratory complaints [facility] Medical History: Medical History (Last Reviewed 05/20/20 @ 14:16 by Kelly Ghotra CMA) Allergic rhinitis Anxiety Depression GERD (gastroesophageal reflux disease) KRYSTLE (iron deficiency anemia) Mild asthma Obese Sjogrens syndrome Family History: Family History (Last Reviewed 05/20/20 @ 14:16 by Kelly Ghotra CMA) Maternal Grandmother H/O cancer of uterus Paternal Grandmother History of breast cancer in adulthood Mother History of stroke History of lupus History of Sjogren's disease Surgical History: Surgical History (Last Reviewed 05/20/20 @ 14:16 by Kelly Ghotra CMA) H/O right breast biopsy H/O tubal ligation H/O: Social History: Social History (Last Reviewed 05/20/20 @ 14:16 by Kelly Ghotra CMA) Alcohol History: Alcohol intake: never Tobacco History: Tobacco Type: Cigarette Home Medications and Allergies Home Medications Medication Instructions Recorded Confirmed Type clonazepam 0.5 mg PO Q8H PRN 02/08/20 05/15/20 History zolpidem 10 mg PO BEDTIME 02/08/20 05/15/20 History hydroxyzine HCl 1 tab PO BID PRN 03/07/20 05/15/20 History ibuprofen 1 tab PO Q8H PRN 03/07/20 05/15/20 History levonorgestrel 20 mcg/24 hours (6 20 mcg INTRAUTERINE USEASDIRECTD 03/10/20 06/20/20 History yrs) 52 mg intrauterine device aripiprazole 10 mg tablet 10 mg PO DAILY 05/15/20 06/20/20 History Allergies Allergy/AdvReac Type Severity Reaction Status Date / Time No Known Allergies Allergy Verified 05/20/20 14:14 [No Known Allergies*] Exam Vital signs: Vital Signs Temp 97.8 F 06/20/20 13:58 Pulse 93 06/20/20 13:58 Resp 12 06/20/20 13:58 BP 111/68 06/20/20 13:58 Pulse Ox 97 06/20/20 13:58 Intake & Output 06/19/20 06/20/20 06/20/20 18:59 06:59 18:59 Other: Weight 78.2 kg [place] Weight in Grams 35188 Weight 78.2 kg Body Mass Index 31.5 - Constitutional Present: no acute distress - Routine HEENT Exam Head: Present: normal inspection - Routine Neck Exam Absent: lymphadenopathy - Routine Respiratory Exam Present: CTAB. Absent: respiratory distress - Routine Cardiovascular Exam Cardiovascular: Present: S1, S2 Data - Labs CBC & Chem 7: 06/20/20 14:00 03/07/20 11:50 Labs: 03/07/20 11:50 Complete Blood Count Auto Diff Routine Comprehensive Met. Panel Routine IRON PROFILE Routine 03/07/20 12:24 Add Laboratory Test Urgent 06/20/20 14:00 Complete Blood Count Auto Diff Routine Laboratory Last Values WBC 9.4 X10*3/uL (4.8-10.8) 06/20/20 14:00 RBC 4.97 X10*6/uL (4.20-5.50) 06/20/20 14:00 Hgb 13.4 g/dl (12.0-16.0) 06/20/20 14:00 Hct 42.3 % (37-47) 06/20/20 14:00 MCV 85.1 fL (80-98) 06/20/20 14:00 MCH 27.0 pg (27.0-33.0) 06/20/20 14:00 MCHC 31.7 g/dl (31.0-35.0) 06/20/20 14:00 RDW 15.9 % (11.0-16.0) 06/20/20 14:00 Plt Count 303 X10*3/uL (160-400) D 06/20/20 14:00 MPV 10.7 fL (9.4-12.3) 06/20/20 14:00 Immature Gran % (Auto) 0.4 % (0.0-0.4) 06/20/20 14:00 Neut % (Auto) 65.4 % (45-73) 06/20/20 14:00 Lymph % (Auto) 19.1 % (20-40) L 06/20/20 14:00 Meagher % (Auto) 10.4 % (2-11) 06/20/20 14:00 Eos % (Auto) 4.0 % (0-4) 06/20/20 14:00 Baso % (Auto) 0.7 % (0-2) 06/20/20 14:00 Lymph # (Auto) 1.8 X10*3/uL (1.2-4.9) 06/20/20 14:00 Meagher # (Auto) 1.0 X10*3/uL (0.1-1.2) 06/20/20 14:00 Eos # (Auto) 0.4 X10*3/uL (0.0-0.4) 06/20/20 14:00 Baso # (Auto) 0.1 X10*3/uL (0.0-0.2) 06/20/20 14:00 Abs Immat Gran (auto) 0.04 X10*3/uL (0.00-0.03) H 06/20/20 14:00 Absolute Neuts (auto) 6.1 X10*3/uL (2.0-8.3) 06/20/20 14:00 Absolute Nucleated RBC 0.000 X10*3/uL (0.0-0.012) 06/20/20 14:00 Nucleated RBC % (auto) 0.0 /100WBC (0.0-0.2) 06/20/20 14:00 Sodium 136 mmol/L (135-145) 03/07/20 11:50 Potassium 4.2 mmol/l (3.3-5.1) 03/07/20 11:50 Chloride 105 mmol/L (96-108) 03/07/20 11:50 Carbon Dioxide 24 mmol/L (22-29) 03/07/20 11:50 Anion Gap 11 (12-20) L 03/07/20 11:50 BUN 8 mg/dL (9-16) L 03/07/20 11:50 Creatinine 1.01 mg/dL (0.5-1.4) 03/07/20 11:50 Estim Creat Clear Calc 67.2 03/07/20 11:50 Estimated GFR 60 03/07/20 11:50 Random Glucose 96 mg/dL (60-115) 03/07/20 11:50 Calcium 10.1 mg/dL (8.4-10.2) 03/07/20 11:50 Iron 36 mcg/dL (30-160) 03/07/20 11:50 TIBC 455 mcg/dL (228-428) H 03/07/20 11:50 % Saturation 8 % (15-50) L 03/07/20 11:50 Unsat Iron Binding 419 ug/dL 03/07/20 11:50 Total Bilirubin 0.4 mg/dL (0.0-1.0) 03/07/20 11:50 AST 21 U/L (5-31) 03/07/20 11:50 ALT 20 U/L (0-31) 03/07/20 11:50 Alkaline Phosphatase 116 U/L (39-117) 03/07/20 11:50 Total Protein 8.0 g/dL (6.5-8.0) 03/07/20 11:50 Albumin 4.3 g/dL (3.5-5.0) 03/07/20 11:50 Progress Note: A/P (1) Iron deficiency anemia Status: Chronic Assessment and plan: 1. This is a 44-year-old female with iron deficiency anemia related to metromenorrhagia. She is not able to tolerate oral iron because of GI side effects. Her last iron dextran therapy was in March 2020. Her anemia and iron deficiency have resolved. She continues to have intermittent menorrhagia, surgery for uterine fibroids is being planned. Follow-up in 6 months. - Time Spent With Patient Total time spent is greater than 50% in coordination of care (as documented) at patient's floor/unit and/or counseling patient: 15 - 24 minutes
[2020-06-20 14:27] LABS: Iron 114 mcg/dL (30-160); Percent Iron Saturation 35 % (15-50); Total Iron Binding Capacity 322 mcg/dL (228-428); Unsaturated Iron Binding 208 ug/dL
--- NOTE | 2020-06-20 15:07 | MHC.HEMONCMA ---
Patient came in for a follow up today, states that she is doing well. Clinical summary reviewed and updated. She had labs drawn and she will return in 6 months for a follow up.
== END | disposition home or self-care (01) ==
LOC: HO.ONC 03-07 11:07
PROVIDERS: PCP Internal Medicine; Visit Provider Internal Medicine
DX: D50.0 Iron deficiency anemia secondary to blood loss (chronic) (principal); N92.1 Excessive and frequent menstruation with irregular cycle
CPT/HCPCS: 36415; 80053; 83540; 85025; 99213

== ENCOUNTER 2024-06-06 09:08 | Outpatient (AMB) | payer OTHER, SELFPAY ==
--- NOTE | 2024-06-06 09:28 | MHC.PC.OV ---
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 Required: No Accompanied by: Self / Same As Patient Allergies No Known Allergies [No Known Allergies*] Allergy (Verified 06/06/24 09:58) Medication List - Last Reconciled 06/06/24 by Margo Graff MD cetirizine (All Day Allergy (cetirizine)) 10 mg PO DAILY PRN 90 days fluticasone furoate 50 mcg/actuation (Arnuity Ellipta) 1 inh inhalation DAILY 30 days fluticasone propionate 50 mcg/actuation (Flonase Allergy Relief) 1 spray intranasal DAILY 30 days magnesium oxide 400 mg PO BEDTIME 30 days omeprazole 20 mg PO DAILY PRN 90 days rosuvastatin 10 mg PO BEDTIME 90 days sennosides (Senna Laxative) 17.2 mg (2 x 8.6 mg) PO BEDTIME topiramate 25 mg PO BEDTIME 90 days venlafaxine 37.5 mg PO BEDTIME 90 days zolpidem 10 mg PO BEDTIME PRN 30 days Tobacco use date assessed: 06/06/24 Dental Screening Dental Screen Date: 06/06/24 Did you have a dental visit in the last 12 months?: Yes Did you have a dental problem in the last 6 months where you did not have access to dental care?: No Was dental information given to patient?: Patient has dentist HPI HPI Comments History of Present Illness Details The patient is a 48-year-old female presenting with allergic rhinitis and a possible skin lesion. She reports a history of asthma and allergies, for which she previously used cetirizine which has been effective, but the medication has run out. The patient states ongoing issues with nasal congestion and sneezing, both indoors and outdoors, indicating seasonal or environmental factors. She expressed difficulty with communication in medical settings due to language barriers, exacerbating her condition management. The patient also describes a new skin lesion that appeared approximately two months ago. Initial presentation was a small bump, which recently grew in size and began itching. She is concerned about its appearance and reports feeling embarrassed, thus covering it. Additionally, she has chronic hypercholesterolemia, managed with ongoing medication, and struggles with insomnia, treated with zolpidem. The patient notes past treatment for depression with venlafaxine, improving her mood and sleep disturbances. There is a history of treatment for migraine with topiramate, which she no longer receives. [facility] Medical History (Updated 06/06/24 @ 16:35 by Margo Graff MD) Physical exam Mixed hyperlipidemia Hyperparathyroidism Transaminitis Epidermal cyst Pure hypercholesterolemia Abscess Hypercalcemia Mild recurrent major depression Mild asthma Obese Allergic rhinitis Sjogrens syndrome GERD (gastroesophageal reflux disease) Depression Anxiety KRYSTLE (iron deficiency anemia) Surgical History History of thyroid surgery History of endometrial ablation H/O tubal ligation H/O right breast biopsy H/O: Family History Maternal Grandmother H/O cancer of uterus Paternal Grandmother History of breast cancer in adulthood Mother History of stroke History of lupus History of Sjogren's disease Father No problems noted. Social History Household Members: Spouse Housing: Apartment Alcohol intake: current Alcohol intake frequency: a few times a week Alcohol type: hard liquor Patient Tobacco Use Status: Current everyday Tobacco user Tobacco use type: Cigarette Cigarettes Per Day: 8 e-Cigarette/Vaping Use: Never Used Second Hand Smoke Exposure: No service: No Current occupational status: employed Current occupational exposures/hazards: No Cognitive needs: No Hearing needs: No Vision needs: Yes Female Reproductive History Menstrual Age of Menarche: 11 Questionnaire PHQ-9 Over the last 2 weeks, how often have you been bothered by any of the following problems? 1. Little interest or pleasure in doing things: nearly every day 2. Feeling down, depressed, or hopeless: several days 3. Trouble falling or staying asleep, or sleeping too much: several days 4. Feeling tired or having little energy: nearly every day 5. Poor appetite or overeating: several days 6. Feeling bad about yourself - or that you are a failure or have let yourself or your family down: nearly every day 7. Trouble concentrating on things, such as reading the newspaper or watching television: nearly every day 8. Moving or speaking so slowly that other people could have noticed. Or the opposite - being so fidgety or restless that you have been moving around a lot more than usual: nearly every day 9. Thoughts that you would be better off or of hurting yourself in some way: not at all Total score: 18 Depression Screening Interpretation: Positive (no suicidal thoughts) Depression Screening Follow-up: Existing condition, In treatment, Community Mental Health Worker F/U and Follow-up Visit Requested Depression Screening Done: Yes 44520 - PHQ-9 Billing: Yes Source: Developed by Drs. Herrera Morrissey, Rosmery Dodson, Juanito Toussaint and colleagues, with an educational keila from [employer]. Thrive Questionnaire Date Thrive assessed: 06/06/24 I am a: Patient What is your living situation today?: I have a steady place to live Within the past 12 months, did the food you bought not last and you didn't have the money to get more?: Never true Within the past 12 months, did you worry whether your food would run out before you got money to buy more?: Never true Do you have trouble paying for medicines?: No Do you have trouble getting transportation to medical appointments?: No Do you have trouble paying your heating and electricity bill?: No Do you have trouble taking care of your child, family member or friend?: No Do you have trouble with day-to-day activities such as bathing, preparing meals, shopping, managing finances, etc.?: No Are you currently unemployed and looking for a job?: No Are you interested in more education?: No Please select the resources that you would like help with: None Currently or been in a relationship where the following occur: No concerns reported THRIVE Score: 0 AUDIT C Alcohol Use Questionnaire (AUDIT-C) 1. How often do you have a drink containing alcohol?: Monthly or less 2. How many drinks containing alcohol do you have on a typical day when you are drinking?: 1 or 2 3. How often do you have six or more drinks on one occasion?: Never Total Score: 1 ZAY-7 AMB Questionnaire ZAY-7 Date ZAY - 7 assessed: 06/06/24 Feeling nervous, anxious, or on edge: 3 = Nearly every day Not being able to stop or control worryin = Several days Worrying too much about different things: 1 = Several days Trouble relaxin = Several days Being so restless that it is hard to sit still: 3 = Nearly every day Becoming easily annoyed or irritable: 3 = Nearly every day Feeling afraid as if something awful might happen: 3 = Nearly every day Total ZAY-7 score (0-4 normal; 5-9 mild; 10-14 moderate; 15-21 severe): 15 Source: Developed by Drs. Herrera Morrissey, Rosmery Dodson, Juanito Toussaint and colleagues, with an educational keila from [employer]. ZAY-7 Assessment Billing ZAY-7 Assessment Tool: ZAY-7 Assessment 15786 Review of Systems Const All systems reviewed & are unremarkable except as noted in HPI and below Card Denies chest pain at rest, Denies chest pain with activity, Denies edema, Denies irregular heart rhythm, Denies claudication, Denies dyspnea, Denies dyspnea on exertion, Denies orthopnea, Denies paroxysmal nocturnal dyspnea and Denies slow heart rate Resp Denies cough, Denies dyspnea and Denies dyspnea on exertion GI Denies abdominal pain, Denies change in bowel habits, Denies excessive flatus, Denies nausea and Denies vomiting Physical exam (Primary Care) Vital Signs: Last Vital Signs BP 110/72 06/06/24 09:29 BMI result Body Mass Index 34.7 BMI Assessment/Plan discussion: High BMI High, discussed plan: lifestyle, weight reduction, dietary and physical activity Tobacco/Smoking Status: Tobacco use Status Tobacco use date assessed 06/06/24 06/06/24 09:38 Patient Tobacco Use Status Current everyday Tobacco 06/06/24 09:38 Tobacco use type Cigarette 06/06/24 09:38 e-Cigarette/Vaping Use Never Used 06/06/24 09:38 PHQ-9: PHQ-9 Score PHQ-9: Total score 18 06/06/24 16:22 Depression Screening Interpretation: Positive (no suicidal thoughts) Depression Screening Follow-up: Existing condition, In treatment, Community Mental Health Worker F/U and Follow-up Visit Requested Thrive Assessment: Date of Thrive Assessment Date Thrive assessed 06/06/24 06/06/24 09:38 Currently or been in a relationship where the following occur: No concerns reported Resp Effort & Inspection: normal respiratory effort Auscultation: clear to auscultation bilaterally Cardio Jugular venous distension: no JVD Rate: regular rate Rhythm: regular rhythm Heart sounds: S1 normal heart sound present and S2 normal heart sound present Extrem General: Yes full ROM Coding Level of Care Code Est Pt Level 4 (73863) Complex EM visit Add On G2211 Diagnoses Allergic asthma J45.909 Skin lesion L98.9 Chest pain R07.9 Migraines G43.909 Mild recurrent major depression F33.0 Mixed hyperlipidemia E78.2 Insomnia G47.00 Additional Codes ZAY-7 Assessment Billing - ZAY-7 Assessment Tool: ZAY-7 Assessment 76574 ([id number]) PHQ-9 - 87997 - PHQ-9 Billing: Yes ([id number]) Time Spent (min) 23 Assessment & Plan Assessment & Plan (1) Allergic asthma: Code(s): J45.909 - Unspecified asthma, uncomplicated Category: Medical (2) Skin lesion: Code(s): L98.9 - Disorder of the skin and subcutaneous tissue, unspecified Category: Medical (3) Chest pain: Code(s): R07.9 - Chest pain, unspecified Category: Medical (4) Migraines: Code(s): G43.909 - Migraine, unspecified, not intractable, without status migrainosus Category: Medical (5) Mild recurrent major depression: Code(s): F33.0 - Major depressive disorder, recurrent, mild Category: Medical (6) Mixed hyperlipidemia: Code(s): E78.2 - Mixed hyperlipidemia Category: Medical (7) Insomnia: Code(s): G47.00 - Insomnia, unspecified Category: Medical Plan - Refill cetirizine for allergic rhinitis management and advise allergen avoidance measures. - Evaluate for possible keratosis through a dermatology consult for further assessment. - Reinforce the use of current hypercholesterolemia medication and monitor lipid levels. - Continue management plan for insomnia with zolpidem as prescribed. - Ensure venlafaxine is managed for depression and advise continued use unless contraindicated. - Follow-up with a commercial baking teacher for comprehensive asthma evaluation and consider additional inhaler medication as needed. Patient was informed and verbally consented to the use of an ambient scribe for clinic note documentation during this visit. I discussed the patient's persistent allergic symptoms and the importance of regular allergy medication like cetirizine, along with exploring other potential triggers and prevention strategies. We addressed the skin lesion, recommending further evaluation by dermatology to assess for keratosis. I emphasized the significance of controlled cholesterol levels and reminded the patient to adhere to her medication regimen. The discussion also touched on insomnia and depression management, confirming the current medication plan. I assured assistance with translation services if language becomes a barrier to care. Additionally, I encouraged follow-up with both the commercial baking teacher and sewer pipe offbearer to ensure comprehensive management of her conditions. Orders: Orders ECG 12 lead EKG Today R07.9 - Chest pain, unspecified Lipid Panel Today E78.5 - Hyperlipidemia, unspecified, R07.9 - Chest pain, unspecified Comprehensive Hubertus. Panel Fast Today R07.9 - Chest pain, unspecified Complete Blood Count Auto Diff Today J45.909 - Unspecified asthma, uncomplicated Vitamin D 25-OH Total Today E55.9 - Vitamin D deficiency, unspecified Thyroid Stimulating Hormone Today E66.09 - Other obesity due to excess calories, Z68.33 - Body mass index [BMI] 33.0-33.9, adult Referrals Ear/Nose/Throat Referral J30.9 - Allergic rhinitis, unspecified Pulmonology Referral J45.909 - Unspecified asthma, uncomplicated Dermatology Referral L98.9 - Disorder of the skin and subcutaneous tissue, unspecified Medications: Refilled rosuvastatin 10 mg PO BEDTIME 90 tabs 1RF 90 days magnesium oxide may hold for loose stools 400 mg PO BEDTIME 30 tabs 6RF 30 days venlafaxine 37.5 mg PO BEDTIME 90 tabs 1RF 90 days cetirizine (All Day Allergy (cetirizine)) 10 mg PO DAILY PRN 90 tabs 0RF allergy symptoms 90 days omeprazole 20 mg PO DAILY PRN 90 caps 1RF heartburn 90 days sennosides (Senna Laxative) 17.2 mg (2 x 8.6 mg) PO BEDTIME 60 tabs 3RF K59.00 - Constipation, unspecified topiramate 25 mg PO BEDTIME 90 tabs 1RF 90 days zolpidem 10 mg PO BEDTIME PRN 30 tabs 0RF insomnia 30 days fluticasone propionate 50 mcg/actuation (Flonase Allergy Relief) administer into each nostril 1 spray intranasal DAILY 16 grams 3RF 30 days Patient Instructions: - Obtain refill of cetirizine and resume daily use. - Avoid known allergens and smoking indoors. - Seek dermatology consultation for evaluation of the skin lesion. - Continue prescribed medications for cholesterol, insomnia, and depression. - Follow up with the commercial baking teacher and sewer pipe offbearer as scheduled. - Use professional translation services during medical appointments if needed.
[2024-06-06 09:29] VITALS: BP 110/72; BMI 34.7
--- OUTSIDE RECORDS SUMMARY | 2024-06-06 10:05 | XMS_ITS | Encounter Summary ---
Author Organization [employer] Address [address] [place] [address] Care Team Providers Care Stamping Mill Tender Name Role Phone Cherie Scott OD Primary Care Provider [phone] Encounter Details Date Type Department Care Team ([facility] st Contact Info) Description 06/25/2022 Abstract [facility] [address] [place] [address] Kyleigh Pandya DDS [address] [place] [address] Social History Tobacco Use Types Packs/Day Years Used Date Smoking Tobacco: Every Day Cigarettes Smokeless Tobacco: Never Comments Unknown Sex and Gender Information Value Date Recorded Sex Assigned at Female 02/22/2022 10:32 AM EDT Legal Sex Female 10:32 AM EDT Gender Identity Female 06/08/2022 1:37 PM EST Sexual Orientation Don't know 06/10/2022 8: 38 AM EST COVID-19 Exposure Response Date Recorded In the last 10 days, have yo u been in contact with someone who was confirmed or suspected to have Coronavirus/COVID-19? No / Unsure 06/25/2022 7:53 AM EST documented as of this encounter Plan of Treatment Not on file documented as of this encounter Visit Diagnoses Not on filedocumented in this encounter Care Teams Stamping Mill Tender Relationship Specialty Start Date End Date Cherie Scott OD [address] [place] [id number] PCP - General Optometry 03/24/17 05/01/23 documented as of this encounter
--- OUTSIDE RECORDS SUMMARY | 2024-06-06 10:05 | XMS_ITS | Clinical Summary ---
Author Organization [employer] Address [address] [place] [address] Care Team Providers Care Television Antenna Installer Name Role Phone Unavailable Primary Care Provider Unavailabl e Allergies No known active allergies Medications zolpidem (Ambien) 10 MG tablet Take 10 mg by mouth if needed at bedtime. 3 Active hydrOXYzine HCl (Atarax) 25 MG tablet Take 25 mg by mouth if needed in the morning and at bedtime. 3 Active ARIPiprazole (Abilify) 10 MG tablet Take 10 mg by mouth in the morning. 2 Active clonazePAM (KlonoPIN) 0.5 MG tablet 3 Active fluticasone (Flonase) 50 MCG/ACT nasal spray 3 Active Flovent HFA 44 MCG/ACT inhaler INHALE 2 PUFFS WITH SPACER TWICE DAILY 3 Active Mucus Relief 600 MG 12 hr tablet TAKE 1 TABLET BY MOUTH EVERY TWELVE HOURS NEEDED FOR NASAL CONGESTION FOR 7 DAYS. SWALLOW WHOLE. DO NOT BREAK, CRUSH, DISSOLVE OR CHEW 2 Active topiramate (Topamax) 25 MG tablet 3 Active SUMAtriptan (Imitrex) 25 MG tablet 3 Active sertraline (Zoloft) 50 MG tablet Take 50 mg by mouth in the morning. 3 Active rosuvastatin (Crestor) 10 MG tablet Take 10 mg by mouth at bedtime. 3 Active Social History Tobacco Use Types Packs/Day Years Used Date Smoking Tobacco: Every Day Cigarettes Smokeless Tobacco: Never Tobacco Cessation:Ready to Q uit: Not Asked; Counseling Given: Not Answered Alcohol Use Standard Drinks/Week Comments Yes 0 (1 standard drink = 0.6 oz pur e alcohol) Comments Unknown Sex and Gender Information Value Date Recorded Sex Assigned at Female 02/22/2022 10:32 AM EDT Legal Sex Female 10:32 AM EDT Gender Identity Female 06/08/2022 1:37 PM EST Sexual Orientation Don't know 06/10/2022 8: 38 AM EST Last Filed Vital Signs Vital Sign Reading Time Taken Comments Blood Pressure 124/78 06/25/2022 8:19 AM EST Pulse - - Temperature - - Respiratory Rate - - Oxygen Saturation - - Inhaled Oxygen Concentration - - Weight - - Height - - Body Mass Index - - Plan of Treatment Health Maintenance Due Date Last Done Comments CT Colonography 1975 Colonoscopy 1975 Colorectal Cancer Screening 1975 Depression Screening 1975 FIT DNA/Cologuard 1975 FIT 1975 FOBT 1975 HIV Screening 1975 SDOH Screening 1975 Sigmoidoscopy 1975 Alcohol/Substance Use Screening 1987 Family Planning (PISQ) 12/27/1990 Hepatitis C Screening 12/27/1993 DTaP/Tdap/Td Vaccines (1 - Tdap) 12/27/1994 Hepatitis B Vaccines (1 of 3 - 19+ 3-dose series) 12/27/1994 Pneumococcal Vaccine: Pediatrics (0 to 5 Years) and At-Risk Patients (6 to 49) Years) (1 of 2 - PCV) 12/27/1994 Pap Smear 12/27/1996 Cervical Cancer Screening 12/27/2005 HPV/Cotest 12/27/2005 Mammogram 2015 Dental Oral Exam 01/15/2023 07/14/2022 Dental Prophylaxis 01/15/2023 07/14/2022 Dental X-Ray: Bitewings 07/16/2023 07/15/19 23, 06/10/2022 Tobacco Screening 09/03/2023 09/02/2022 COVID-19 Vaccine (1 - 2023-2 5 season) 2023 Influenza Vaccine (#1) 2023 Dental X-Ray: Full Mouth 07/15/2025 07/14/2022 Zoster Vaccines (1 of 2) 12/27/2025 RSV Patients and Patients Aged 60 years or older (1 - 1-dose 75+ series) 12/27/2050 HIB Vaccines Aged Out No longer eligi ble based on patient's age to complete this topic HPV Vaccines Aged Out No longer eligi ble based on patient's age to complete this topic Hepatitis A Vaccines Aged Out No long er eligible based on patient's age to complete this topic IPV Vaccines Aged Out No longer eligi ble based on patient's age to complete this topic Meningococcal Vaccine Aged Out No jennifer ritesh eligible based on patient's age to complete this topic RSV under 20 months Aged Out No longe r eligible based on patient's age to complete this topic Rotavirus Vaccines Aged Out No longer eligible based on patient's age to complete this topic Procedures Procedure Name Priority Date/Time Associated Diagnosis Comments PROPHYLAXIS - ADULT Routine 07/14/2022 1 0:00 AM EDT Gingivitis DIAGNOSTIC - DIAGNOSTIC IMAGING - INTRAORAL - COMPREHENSIVE SERIES OF RADIOGRAPHIC IMAGES Routine 07/14/2022 10:00 AM EDT Encounter for dental examination and cleaning with abnormal findings COMPREHENSIVE ORAL EVALUATION - NEW OR ESTABLISHED PATIENT Routine 07/14/2022 10:00 AM EDT Encounter for dental examination and cleaning with abnormal findings from Last 3 Months or Most Recently Relevant to Health Maintenance Insurance [facility] MEDICAID STAND ADULT
== END 2024-06-06 10:17 | disposition home or self-care (01) ==
PROVIDERS: PCP Internal Medicine; Visit Provider Internal Medicine
DX: J45.909 Unspecified asthma, uncomplicated (principal); F33.0 Major depressive disorder, recurrent, mild; L98.9 Disorder of the skin and subcutaneous tissue, unspecified; R07.9 Chest pain, unspecified; G43.909 Migraine, unspecified, not intractable, without status migrainosus; E78.2 Mixed hyperlipidemia; G47.00 Insomnia, unspecified

== ENCOUNTER → 2024-06-06 09:08 | Outpatient (BNVA) | payer OTHER, SELFPAY | PROVIDERS: PCP Internal Medicine; Visit Provider Internal Medicine | DX: J45.909 Unspecified asthma, uncomplicated (principal); L98.9 Disorder of the skin and subcutaneous tissue, unspecified; R07.9 Chest pain, unspecified; G43.909 Migraine, unspecified, not intractable, without status migrainosus; F33.0 Major depressive disorder, recurrent, mild; E78.2 Mixed hyperlipidemia; G47.00 Insomnia, unspecified | CPT/HCPCS: 96127; 99212 ==

== ENCOUNTER 2024-07-06 13:12 | Outpatient (AMB) | payer OTHER, SELFPAY ==
--- NOTE | 2024-07-06 12:47 | MHC.OFFVIS ---
Vital Signs 07/06/24 13:19 Height 5 ft 2 in Weight 191 lb BMI 34.9 BP 122/60 Blood Pressure Location Rt brachial Position Sitting Pulse 78 Pulse Source Pulse Oximeter Pulse Oximetry (%) 98 Intake Visit Reasons: Asthma Bead Wire Insulator Required: Yes Bead Wire Insulator Name: Francis #[id number] Financing Analyst: Financing Analyst offered & declined Accompanied by: Self / Same As Patient Allergies No Known Allergies [No Known Allergies*] Allergy (Verified 07/06/24 13:28) Medication List - Last Reconciled 07/06/24 by Pebbles Linton LPN cetirizine (All Day Allergy (cetirizine)) 10 mg PO DAILY PRN 90 days fluticasone furoate 50 mcg/actuation (Arnuity Ellipta) 1 inh inhalation DAILY 30 days fluticasone propionate 50 mcg/actuation (Flonase Allergy Relief) 1 spray intranasal DAILY 30 days magnesium oxide 400 mg PO BEDTIME 30 days omeprazole 20 mg PO DAILY PRN 90 days rosuvastatin 10 mg PO BEDTIME 90 days sennosides (Senna Laxative) 17.2 mg (2 x 8.6 mg) PO BEDTIME topiramate 25 mg PO BEDTIME 90 days venlafaxine 37.5 mg PO BEDTIME 90 days zolpidem 10 mg PO BEDTIME PRN 30 days HPI HPI Asthma: Details: Mary is a pleasant 48 year old female, current smoker, with approximately 20 pack year history with underlying asthma, allergic rhinitis, KRYSTLE, Sjogren's, GERD and depression. She was referred by PCP for pulmonary evaluation. She reports suboptimal control on Arnuity, zyrtec, and flonase. She continues to report wheezing, dyspnea on exertion, chest tightness and dry cough over the last three months. She also endorses nasal congestion and sneezing, denies recent allergy testing. She denies recurrent respiratory infections. She reports asthma recently diagnosed, never requiring intubations/hospitalizations related to respiratory distress. She denies any pets at home. She reports granddaughter with asthma, otherwise denies pertinent family history. She denies any occupational exposures. She has a h/o GERD reports symptoms are controlled with PPI. She endorses significant secondary smoke exposure. [facility] Medical History Physical exam Mixed hyperlipidemia Hyperparathyroidism Transaminitis Epidermal cyst Pure hypercholesterolemia Abscess Hypercalcemia Mild recurrent major depression Mild asthma Obese Allergic rhinitis Sjogrens syndrome GERD (gastroesophageal reflux disease) Depression Anxiety KRYSTLE (iron deficiency anemia) Surgical History History of thyroid surgery History of endometrial ablation H/O tubal ligation H/O right breast biopsy H/O: Family History Maternal Grandmother H/O cancer of uterus Paternal Grandmother History of breast cancer in adulthood Mother History of stroke History of lupus History of Sjogren's disease Father No problems noted. Social History (Updated 07/06/24 @ 13:32 by Pebbles Linton LPN) Household Members: Spouse Housing: Apartment Alcohol intake: current Alcohol intake frequency: a few times a week Alcohol type: hard liquor Patient Tobacco Use Status: Current everyday Tobacco user Tobacco use type: Cigarette Cigarettes Per Day: 10 e-Cigarette/Vaping Use: Never Used Second Hand Smoke Exposure: No service: No Current occupational status: employed Current occupational exposures/hazards: No Cognitive needs: No Hearing needs: No Vision needs: Yes Female Reproductive History Menstrual Age of Menarche: 11 Review of Systems Const Denies chills, Denies excessive sweating, Denies fever(s), Denies headache(s) and Denies night sweats Eyes Denies dry eyes, Denies irritation and Denies itchy eyes ENT Reports Normal hearing present, Denies headache(s), Reports nasal congestion, Denies nasal discharge, Denies post nasal drip and Denies sore throat Card Denies chest pain, Denies chest pain at rest, Denies chest pain with activity, Denies claudication, Denies leg edema, Reports dyspnea on exertion, Denies orthopnea and Denies paroxysmal nocturnal dyspnea Resp Denies change in phlegm color, Denies chest congestion, Reports cough, Denies hemoptysis, Denies excessive phlegm production, Denies pain on inspiration, Denies pain with cough, Reports dyspnea on exertion, Denies stridor and Reports wheezing Musc Denies myalgias Neuro Reports Normal hearing present and Denies headache(s) Endo Denies excessive sweating Jamshid/Lymph Denies lymphadenopathy Aller/Immun Denies itchy eyes and Reports wheezing Physical Exam Vital Signs: Last Vital Signs Pulse 78 07/06/24 13:19 BP 122/60 07/06/24 13:19 Pulse Ox 98 07/06/24 13:19 BMI result Body Mass Index 34.9 Const General: cooperative, healthy appearing, comfortable, no acute distress, well developed and alert Nutritional Appearance: obese Orientation/consciousness: patient oriented x3 Limitations: no limitations HEENT Head: Yes normal to inspection, Yes normocephalic and Yes atraumatic Ears: hearing grossly normal bilaterally and external ears normal Eyes General: appearance normal, both eyes and all related structures Eyelids: Yes eyelids normal Sclerae: sclerae normal EOM: EOMs intact bilaterally Neck Neck: Yes normal visual inspection and Yes no lymphadenopathy Lymphatic: no lymphadenopathy noted Chest Chest palpation & inspection: normal inspection of the chest Resp Effort & Inspection: normal respiratory effort, able to speak in complete sentences, no audible wheezes, no cough, no stridor, not tachypneic, no tripod positioning and no use of accessory muscles Auscultation: diminished lung sounds Cardio Jugular venous distension: no JVD Rate: regular rate Rhythm: regular rhythm Skin Other: warm, dry General skin exam: no rashes or lesions noted Neuro General: patient oriented x3 Cranial nerves: Yes Normal hearing present Cognition (Neuro): normal cognition Gait exam (Neuro): Normal gait present Extrem General: Yes normal to inspection, Yes capillary refill normal, Yes no clubbing, cyanosis or edema and Yes no pedal edema Psych Appearance: grossly normal and well kempt Speech and movement: Normal speech and movement present and Clear speech present Affect: normal affect Attitude: cooperative Thought process: Normal thought process present Thought content: Normal thought content present Insight: Good insight present (Psych) Judgement: Good judgement present (Psych) Assessment & Plan Assessment & Plan (1) Asthma: Code(s): J45.909 - Unspecified asthma, uncomplicated Category: Medical (2) Environmental allergies: Code(s): Z91.09 - Other allergy status, other than to drugs and biological substances Category: Medical (3) Allergic rhinitis: Code(s): J30.9 - Allergic rhinitis, unspecified Category: Medical Plan Mary presents for pulmonary evaluation for new onset asthma and allergic rhinitis. Will switch Arnuity to Advair in addition to Azelastine and albuterol MDI. Will send for PFT and RAST as well as CXR. All questions were answered and patient is in agreement of plan. Will follow up in 6-8 weeks or sooner if needed. Orders: Orders Resp Allergy Profile Region I Today Z91.09 - Other allergy status, other than to drugs and biological substances Immunoglobulin E Today Z91.09 - Other allergy status, other than to drugs and biological substances PFT pulmonary function test Today J45.909 - Unspecified asthma, uncomplicated XR chest 2V Today R05.9 - Cough, unspecified Complete Blood Count Auto Diff Today Z91.09 - Other allergy status, other than to drugs and biological substances Medications: New fluticasone propion-salmeterol 115-21 mcg/actuation (Advair HFA) 2 puffs inhalation Q12H 12 grams 3RF albuterol sulfate 90 mcg/actuation 2 puffs inhalation Q4-6H PRN 1 ea 3RF shortness of breath or wheezing azelastine administer into each nostril 1 spray intranasal BID 30 mL 3RF Discontinued fluticasone furoate 50 mcg/actuation (Arnuity Ellipta) Discontinued Reason: Patient Completed Course 1 inh inhalation DAILY 30 days 30 ea 4RF Coding Level of Care Code New Pt Level 4 (17376) Diagnoses Asthma J45.909 Environmental allergies Z91.09 Allergic rhinitis J30.9
[2024-07-06 13:19] VITALS: BP 122/60; PULSE 78; O2SAT 98; BMI 34.9
--- OUTSIDE RECORDS SUMMARY | 2024-07-06 14:44 | XMS_ITS | Clinical Summary ---
Author Organization [employer] Address [address] [facility] [address] [place] [address] Care Team Providers Care Employee Representative Name Role Phone Unavailable Primary Care Provider [...] Routine 07/14/2022 1 0:00 AM EDT Gingivitis INTRAORAL - COMPLETE SERIES OF RADIOGRAPHIC IMAGES Routine 07/14/2022 10:00 AM EDT Encounter for dental examination and cleaning with abnormal findings COMPREHENSIVE ORAL EVALUATION - NEW OR ESTABLISHED PATIENT Routine 07/14/2022 10:00 AM EDT Encounter for dental examination and cleaning with abnormal findings from Last 3 Months or Most Recently Relevant to Health Maintenance Insurance [facility] MEDICAID STAND ADULT
--- OUTSIDE RECORDS SUMMARY | 2024-07-06 14:44 | XMS_ITS | Encounter Summary ---
Author Organization [employer] Address [address] [facility] [address] [place] [address] Care Team Providers Care Electrical Mechanical Technician Name Role Phone Cherie Scott OD Primary Care Provider [phone] Encounter Details Date Type Department Care Team ([facility] st Contact Info) Description 06/25/2022 Abstract [facility] ADULT DENTAL [address] [place] [address] Kyleigh Pandya DDS [address] [place] [address] Social History Tobacco Use Types Packs/Day Years [...] on filedocumented in this encounter Care Teams Electrical Mechanical Technician Relationship Specialty Start Date End Date Cherie Scott OD [address] [place] [id number] PCP - General Optometry 03/24/17 05/01/23 documented as of this encounter
== END 2024-07-06 14:02 | disposition home or self-care (01) ==
LOC: HO.HPSW 13:12
PROVIDERS: PCP Internal Medicine; Referring Provider Internal Medicine; Visit Provider Nurse Practitioner Family
DX: J45.909 Unspecified asthma, uncomplicated (principal); Z91.09 Other allergy status, other than to drugs and biological substances; J30.9 Allergic rhinitis, unspecified
CPT/HCPCS: 99204

== ENCOUNTER → 2024-07-06 13:12 | Outpatient (BNVA) | payer OTHER, SELFPAY | PROVIDERS: PCP Internal Medicine; Referring Provider Internal Medicine; Visit Provider Nurse Practitioner Family | DX: J45.909 Unspecified asthma, uncomplicated (principal); F17.210 Nicotine dependence, cigarettes, uncomplicated; Z91.09 Other allergy status, other than to drugs and biological substances | CPT/HCPCS: 99202 ==

== ENCOUNTER 2024-07-06 14:08 | Outpatient (REF) | payer OTHER, SELFPAY ==
--- OUTSIDE RECORDS SUMMARY | 2024-07-06 15:53 | XMS_ITS | Clinical Summary ---
Author Organization [employer] Address [address] [facility] [address] [place] [address] Care Team Providers Care Curatorial Specialist Name Role Phone Unavailable Primary Care Provider [...] Most Recently Relevant to Health Maintenance Insurance [facility] MEDICAID STAND ADULT
--- OUTSIDE RECORDS SUMMARY | 2024-07-06 15:53 | XMS_ITS | Encounter Summary ---
Author Organization [employer] Address [address] [facility] [address] [place] [address] Care Team Providers Care Answering Service Telephone Operator Name Role Phone Cherie Scott OD Primary Care Provider [phone] Encounter Details Date Type Department Care Team ([facility] st Contact Info) Description 06/25/2022 Abstract [facility] ADULT DENTAL [address] [place] [address] Kyleigh Pandya DDS [address] [place] [address] Social History Tobacco Use Types Packs/Day Years [...] on filedocumented in this encounter Care Teams Answering Service Telephone Operator Relationship Specialty Start Date End Date Cherie Scott OD [address] [place] [id number] PCP - General Optometry 03/24/17 05/01/23 documented as of this encounter
[2024-07-06 17:53] LABS: MANUAL DIFF FLAG NO
[2024-07-06 18:04] LABS: Basophils Absolute Auto 0.1 X10*3/uL (0.0-0.2); Basophils Percent Auto 0.8 % (0-2); Eosinophils Absolute Auto 0.4 X10*3/uL (0.0-0.4); Eosinophils Percent Auto 4.3 % (0-4); Hemoglobin 11.6 g/dl (12.0-16.0); Imm Gran Abs Auto 0.03 X10*3/uL (0.00-0.03); Imm Gran Pct Auto 0.3 % (0.0-0.4); Lymphocytes Absolute Auto 2.1 X10*3/uL (1.2-4.9); Lymphocytes Percent Auto 24.3 % (20-40); Mean Corpuscular HGB Conc 31.4 g/dl (31.0-35.0); Mean Corpuscular Hemoglobin 24.6 pg (27.0-33.0); Mean Corpuscular Volume 78.6 fL (80.0-98.0); Mean Platelet Volume 11.3 fL (9.4-12.3); Monocytes Absolute Auto 0.7 X10*3/uL (0.1-1.2); Neutrophils Absolute Auto 5.4 x10*3/uL (2.0-8.3); Neutrophils Percent Auto 62.3 % (45-73); Platelet Count 355 X10*3/uL (160-400); Red Blood Count 4.71 X10*6/uL (4.20-5.50); Red Cell Distribution Width 17.6 % (11.0-16.0); White Blood Count 8.6 X10*3/uL (4.8-10.8)
[2024-07-06 18:16] LABS: Alanine Aminotransferase 30 U/L (0-31); Alkaline Phosphatase 117 U/L (39-117); Anion Gap 13 (12-20); Aspartate Amino Transferase 28 U/L (5-31); Bilirubin Total 0.2 mg/dL (0.0-1.0); Blood Urea Nitrogen 12 mg/dL (9-16); Carbon Dioxide 24 mmol/L (22-29); Chloride 106 mmol/L (96-108); Cholesterol 139 mg/dL (<200); Estimated Glomerular Filt Rate > 60; Glucose Fasting 87 mg/dL (60-99); HDL Cholesterol 42 mg/dL (>40); LDL Cholesterol Calculated 72 mg/dL (<100); Potassium 4.2 mmol/L (3.3-5.1); Sodium 139 mmol/L (135-145); Triglycerides 128 mg/dL (<150)
[2024-07-06 18:32] LABS: Thyroid Stimulating Hormone 2.02 uIU/mL (0.32-4.0); Vitamin D 25-OH Total 23.6 ng/mL (>30)
[2024-07-09 22:34] LABS: Immunoglobulin E 555 kU/L (<OR=114)
[2024-07-11 02:58] LABS: Class Alternaria alternata 0; Class Aspergillus fumigatus 0; Class Bermuda Grass 0; Class Birch 0; Class Cat Dander 0; Class Cladosporium herbarum 0; Class Cockroach 0; Class Common Ragweed 0; Class Cottonwood 0; Class Derm. pterony 0/1; Class Dermatophagoides farinae 0/1; Class Dog Dander 0; Class Elm 0; Class Maple Box Elder 0; Class Mountain Cedar 0; Class Mouse Urine Protein 0; Class Mugwort 0; Class Oak 0; Class Penicillium crysogenum 0; Class Rough Pigweed 0; Class Sheep Sorrel 0; Class Sycamore 0; Class Timothy Grass 0; Class Walnut Tree 0; Class White Ash 0; Class White Mulberry 0; D001 IgE D pteronyssinus 0.11 kU/L; D002 - IgE D farinae 0.12 kU/L; E001 - IgE Cat Dander <0.10 kU/L; E005 - IgE Dog Dander <0.10 kU/L; E072-IgE Mouse Urine <0.10 kU/L; G002 IgE Bermuda Grass <0.10 kU/L; G006 - IgE Timothy Grass <0.10 kU/L; I006-IgE Cockroach, German <0.10 kU/L; Immunoglobulin E 493 kU/L (<OR=114); M001 IgE Penicillium chrysogen <0.10 kU/L; M002 - IgE Cladosporium herbar <0.10 kU/L; M003 - IgE Aspergillus fumigat <0.10 kU/L; M006 - IgE Alternaria alternat <0.10 kU/L; T001 IgE Maple/Box Elder <0.10 kU/L; T003 IgE Common Silver Birch <0.10 kU/L; T006 - IgE Cedar, Mountain <0.10 kU/L; T007 - IgE Oak, White <0.10 kU/L; T008 IgE Elm, American <0.10 kU/L; T010 - IgE Walnut <0.10 kU/L; T011 - IgE Maple Leaf Sycamore <0.10 kU/L; T014 - IgE Cottonwood <0.10 kU/L; T015 - IgE Ash, White <0.10 kU/L; T070 - IgE White Mulberry <0.10 kU/L; W001 - IgE Ragweed, Short <0.10 kU/L; W006 - IgE Mugwort <0.10 kU/L; W014 IgE Pigweed, Common <0.10 kU/L; W018 IgE Sheep Sorrel <0.10 kU/L
== END 2024-07-06 14:09 | disposition home or self-care (01) ==
LOC: HO.WFDLDS 14:08
PROVIDERS: Referring Provider Internal Medicine; Visit Provider Nurse Practitioner Family
DX: K21.9 Gastro-esophageal reflux disease without esophagitis (principal); E78.5 Hyperlipidemia, unspecified; R07.9 Chest pain, unspecified; J45.909 Unspecified asthma, uncomplicated; E55.9 Vitamin D deficiency, unspecified; E66.09 Other obesity due to excess calories; Z68.33 Body mass index [BMI] 33.0-33.9, adult; Z91.09 Other allergy status, other than to drugs and biological substances
CPT/HCPCS: 36415; 80053; 80061; 82306; 82785; 84443; 85025; 86003

== ENCOUNTER 2024-08-08 14:52 | Emergency (ER) | payer OTHER, SELFPAY ==
[2024-08-08] VITALS (7 sets, daily range): BP systolic 112–137; BP diastolic 70–93; PULSE 75–105; RESP 18–20; TEMP 37.2–37.7; O2SAT 97–98; BMI 33.9
--- NOTE | ~2024-08-08 | XR_ITS ---
EXAMINATION: XR CHEST 2 VIEWS HISTORY: CP, SOB COMPARISON: There are no prior studies for comparison. FINDINGS: PA and lateral views of the chest are submitted. The lungs are expanded and clear. There is no pleural effusion, pneumothorax, or pulmonary vascular congestion. The heart is normal in size. The bones are intact. XR/XR chest 2V IMPRESSION: Clear lungs. Electronically signed by: Herrera Fisher MD 08/08/2024 03:35 PM EDT
--- NOTE | 2024-08-08 14:58 | ECG_ITS ---
Test Reason : CHEST PAIN Blood Pressure : */* mmHG Vent. Rate : 102 BPM Atrial Rate : 102 BPM P-R Int : 130 ms QRS Dur : 72 ms QT Int : 334 ms P-R-T Axes : 58 56 37 degrees QTcB Int : 435 ms Sinus tachycardia Otherwise normal ECG No previous ECGs available Referred By: Generic ED Physician Electronically Signed By: LJ ALLEN MD
--- NOTE | 2024-08-08 15:08 | ED_ITS ---
HPI - URI/Sore Throat General Chief Complaint: Chest Pain Stated Complaint: Asthma, Chest Pain, Headache Time Seen by Provider: 08/08/24 16:07 Source: patient Mode of arrival: ambulatory Limitations: no limitations History of Present Illness ED Provider: Dr. Rere Ortiz HPI Narrative: Patient comes to the emergency room complaining of chest pain, shortness of breath, diffuse body pains, congestion. Patient states that she has been having chest pain since this morning around 11:00. Patient states that the pain is worse when she coughs, states that she feels a bit better when she leans forward. Patient denies constant chest pain or pain at this time. Patient states that what bothers her the most are the diffuse myalgias throughout the body. Related Data Previous Rx's ?Medication ?Instructions ?Recorded cetirizine 10 mg tablet (All Day 10 mg PO DAILY PRN allergy 06/06/24 Allergy (cetirizine)) symptoms 90 days #90 tabs fluticasone propionate 50 1 spray intranasal DAILY 30 days 06/06/24 mcg/actuation nasal #16 grams spray,suspension (Flonase Allergy Relief) magnesium oxide 400 mg (241.3 mg 400 mg PO BEDTIME 30 days #30 tabs 06/06/24 magnesium) tablet omeprazole 20 mg capsule,delayed 20 mg PO DAILY PRN heartburn 90 06/06/24 release days #90 caps rosuvastatin 10 mg tablet 10 mg PO BEDTIME 90 days #90 tabs 06/06/24 sennosides 8.6 mg tablet (Senna 17.2 mg (2 x 8.6 mg) PO BEDTIME 06/06/24 Laxative) #60 tabs topiramate 25 mg tablet 25 mg PO BEDTIME 90 days #90 tabs 06/06/24 venlafaxine 37.5 mg tablet 37.5 mg PO BEDTIME 90 days #90 tabs 06/06/24 albuterol sulfate 90 mcg/actuation 2 puff inhalation Q4-6H PRN 07/06/24 aerosol inhaler shortness of breath or wheezing #1 ea azelastine 137 mcg (0.1 %) nasal 1 spray intranasal BID #30 mL 07/06/24 spray fluticasone propionate 115 2 puff inhalation Q12H #12 grams 07/06/24 mcg-salmeterol 21 mcg/actuation HFA inhaler (Advair HFA) prednisone 20 mg tablet 40 mg (2 x 20 mg) PO DAILY #10 tabs 07/06/24 codeine 10 mg-guaifenesin 100 mg/5 5 ml PO Q6H PRN cough #120 mL 08/08/24 mL oral liquid ibuprofen 600 mg tablet 600 mg PO Q8H PRN fever or pain 08/08/24 #30 tabs oseltamivir 75 mg capsule (Tamiflu) 75 mg PO BID 5 days #10 caps 08/08/24 zolpidem 10 mg tablet 10 mg PO BEDTIME PRN insomnia 30 08/08/24 days #30 tabs Allergies Allergy/AdvReac Type Severity Reaction Status Date / Time No Known Allergies Allergy Verified 08/08/24 15:10 [No Known Allergies*] Review of Systems 2 Review of Systems: Constitutional : No Weight loss, No Fever, No Chills, No Night Sweats, complaining of fatigue, malaise ENT/Mouth : No Hearing loss, No Ear Pain, No Nasal Congestion, No Sinus Pain, No Hoarseness, No sore throat, No Rhinorrhea, No Swallowing Difficulty Eyes: No Eye Pain, No Swelling, No Redness, No Foreign Body, No Discharge, No Vision Changes Cardiovascular : Complaining of chest pain that is worse with deep inspiration and coughing, relieved by leaning forward, No SOB, No Dyspnea on Exertion, No Orthopnea, No Edema, No Palpitations Respiratory : No Cough, No Sputum, No Wheezing, No Smoke Exposure, No Dyspnea Gastrointestinal : No Nausea, No Vomiting, No Diarrhea, No Constipation, No abdominal Pain, No Hematochezia, No Melena Genitourinary : no irregular bleeding, No Dysuria, No Urinary Frequency, No Hematuria, No Urinary Incontinence, No Urgency, No Flank Pain, No Urinary Flow Changes, No Hesitancy Musculoskeletal : No joint pain, complaining of diffuse Myalgias, No Joint Swelling Skin : No Skin Lesions, No rash Neuro : No Weakness, No Numbness, No Paresthesias, No Loss of Consciousness, No Dizziness, No Headache Psych : No Anxiety/Panic, No Depression, No SI/HI/AH/VH, No Social Issues, Heme/Lymph: No Bruising, No Bleeding,No Lymphadenopathy Endocrine : No Polyuria, No Polydipsia, No Temperature Intolerance [facility] Past Medical History Medical History Physical exam Mixed hyperlipidemia Hyperparathyroidism Transaminitis Epidermal cyst Pure hypercholesterolemia Abscess Hypercalcemia Mild recurrent major depression Mild asthma Obese Allergic rhinitis Sjogrens syndrome GERD (gastroesophageal reflux disease) Depression Anxiety KRYSTLE (iron deficiency anemia) Surgical History History of thyroid surgery History of endometrial ablation H/O tubal ligation H/O right breast biopsy H/O: Family History Family History Maternal Grandmother H/O cancer of uterus Paternal Grandmother History of breast cancer in adulthood Mother History of stroke History of lupus History of Sjogren's disease Father No problems noted. Social History Social History (Updated 07/06/24 @ 13:32 by Pebbles Linton LPN) Household Members: Spouse Housing: Apartment Alcohol intake: never Patient Tobacco Use Status: Current everyday Tobacco user Tobacco use type: Cigarette Cigarettes Per Day: 10 Smoked in Last 30 Days: Yes e-Cigarette/Vaping Use: Never Used Second Hand Smoke Exposure: No Use of substances other than those prescribed or required for medical reasons: No Advance Directives: No Advance Directives Information Provided: No Patient : No service: No Current occupational status: employed Current occupational exposures/hazards: No Cognitive needs: No Hearing needs: No Vision needs: Yes Physical Exam 2 Vital Signs: Vital Signs: Last Vital Signs Temp 99.8 F 08/08/24 15:09 Pulse 82 08/08/24 22:00 Resp 18 08/08/24 22:00 BP 115/80 08/08/24 20:00 Pulse Ox 97 08/08/24 22:00 O2 Del Method Room Air 08/08/24 22:00 BMI result Body Mass Index 33.9 Const: Other: Appearance: Alert. Oriented X3. No acute distress. Eyes: Pupils equal, round and reactive to light. ENT: Pharynx normal. Neck: Normal inspection. Neck supple. No lymph nodes noted. No crepitus CVS: Normal heart rate and rhythm. Pulses normal. Normal S1 and S2. Bedside ultrasound shows no pericardial effusion Respiratory: No respiratory distress. Breath sounds normal. No Wheezing. No rales Abdomen: Soft and nontender. No rigidity. No distention. Skin: Skin warm and dry. Normal skin color. Normal skin turgor. Extremities: No lower extremity edema. No Lacerations. No Rash Neuro: Oriented X 3. No motor deficit. No sensory deficit. Moving all extremities. No slurred speech. CN 2 through 12 grossly intact Psych: calm, cooperative, normal affect Course Course Course Narrative: This is an RME: Additional HPI, ROS, PE not included below will be deferred to primary provider. RME assessment and note performed by: Hilary Jara PA-C This is a 5-vnci-al[age]-female, with a hx of hyperlipidemia, hyperparathyroidism, asthma, GERD, who presents to the ER with complaints of headache, chills, chest pain, cough since yesterday. Reports symptoms started suddenly at work - works at [employer]. No sick contacts. 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 Subjective fevers. CP is when she cough. Plan: Labs, EKG, Viral swabs, CXR, further ER eval needed Medical Decision Making Medical Decision Making MDM Narrative: Chest x-ray: Clear lungs My interpretation of EKG: Sinus tachycardia, heart rate 102, no ST segment depression or elevation or T-wave inversion, QTC 445 Labs: No significant abnormality in patient's hematology or chemistry. Patient's troponin 1. 165.3, troponin 2. 162.5 . CRP 0.66, ESR 14 Given patient's inflammatory markers, EKG, it does not seem that patient has pericarditis. I discussed the patient with Dr. Mcdermott. No need for admission at this time Patient instructed to follow-up closely with his primary care physician. If patient has any symptoms, she needs to return to the emergency room. Patient understands the plan. Patient was given the 1st dose of Tamiflu here in the emergency room. Patient states that she does not have constant pain, only with deep inspiration. Patient is not tachycardic, normal blood pressure. No lower extremity pain and swelling. DVT/PE not suspected at this time, wells criteria score for pulmonary embolism is 0 Differential Diagnosis Differential Diagnoses: The differential diagnosis associated with the presentation includes (Pericardial effusion, pericarditis, pleurisy, viral URI, pneumonia) Admission/Observation Consideration of admission/observation: Escalation of care including admission/observation considered (Given patient's symptoms and troponin elevation, admission was considered.) Consult Healthcare Provider Management of the patient was discussed with: Airline Security Representative Lab Data MDM Lab Attestation statement: I reviewed the patient's lab results. 08/08/24 15:25 08/08/24 15:25 Labs: Lab Results 08/08/24 08/08/24 Range/Units 15:25 19:00 WBC 6.8 (4.8-10.8) X10*3/uL RBC 4.76 (4.20-5.50) X10*6/uL Hgb 11.6 L (12.0-16.0) g/dl Hct 37.2 (37.0-47.0) % MCV 78.2 L (80.0-98.0) fL MCH 24.4 L (27.0-33.0) pg MCHC 31.2 (31.0-35.0) g/dl RDW 16.1 H (11.0-16.0) % Plt Count 315 (160-400) X10*3/uL MPV 10.6 (9.4-12.3) fL Immature Gran % (Auto) 0.7 H (0.0-0.4) % Neut % (Auto) 63.2 (45-73) % Lymph % (Auto) 20.2 (20-40) % Glynn % (Auto) 14.3 H (2-11) % Eos % (Auto) 1.0 (0-4) % Baso % (Auto) 0.6 (0-2) % Lymph # (Auto) 1.4 (1.2-4.9) X10*3/uL Glynn # (Auto) 1.0 (0.1-1.2) X10*3/uL Eos # (Auto) 0.1 (0.0-0.4) X10*3/uL Baso # (Auto) 0.0 (0.0-0.2) X10*3/uL Abs Immat Gran (auto) 0.05 H (0.00-0.03) X10*3/uL Absolute Neuts (auto) 4.3 (2.0-8.3) x10*3/uL Absolute Nucleated RBC 0.000 (0.0-0.012) X10*3/uL Nucleated RBC % (auto) 0.0 (0.0-0.2) /100WBC ESR 14 (0-20) MM/HR Sodium 137 (135-145) mmol/L Potassium 4.3 (3.3-5.1) mmol/L Chloride 107 (96-108) mmol/L Carbon Dioxide 22 (22-29) mmol/L Anion Gap 12 (12-20) BUN 9 (9-16) mg/dL Creatinine 0.92 (0.5-1.4) mg/dL Estim Creat Clear Calc 75.1 Estimated GFR > 60 Random Glucose 103 (60-115) mg/dL Calcium 9.0 (8.4-10.2) mg/dL Magnesium 1.9 (1.6-2.6) mg/dL Troponin I High Sens 165.3 H* 162.5 H* (<3.5-17.0) ng/L C-Reactive Protein 0.66 H (< or = 0.50) mg/dL Influenza Type A (PCR) NEGATIVE (Negative) Influenza Type B (PCR) POSITIVE A (Negative) RSV RNA Qual (PCR) NEGATIVE (Negative) SARS-CoV-2 RNA (RT-PCR) NEGATIVE (Negative) Independent Interpretation I performed an independent interpretation of an: EKG and Plain X-Ray Radiology Impression Discussion of test interpretation with radiology: I have reviewed the radiologist's reading. Radiologist Impression: PA and lateral views of the chest are submitted. The lungs are expanded and clear. There is no pleural effusion, pneumothorax, or pulmonary vascular congestion. The heart is normal in size. The bones are intact. XR/XR chest 2V IMPRESSION: Clear lungs. Critical Care Time Critical Care Time Critical Care Time: Yes Total Critical Care Time: 60 Attestation: I have personally provided critical care time. Time includes review of lab data, radiology results, discussion with consultants, and monitoring for potential decompensation. Intervention performed as documented. Discharge Plan Discharge Clinical Impression: Pleurisy, Elevated troponin, Influenza B Patient Disposition: Home, Self-Care Instructions: Pleurisy (ED), Influenza (ED) Additional Instructions: Please follow-up with your primary care physician tomorrow. If you have any worsening or new symptoms, please return to the emergency room or call 911 Prescriptions: New oseltamivir [Tamiflu] 75 mg capsule 75 mg PO BID 5 Days Qty: 10 0RF codeine-guaifenesin 10-100 mg/5 mL liquid 5 ml PO Q6H PRN (Reason: cough) Qty: 120 0RF ibuprofen 600 mg tablet 600 mg PO Q8H PRN (Reason: fever or pain) Qty: 30 0RF No Action zolpidem 10 mg tablet 10 mg PO BEDTIME PRN (Reason: insomnia) 30 Days Qty: 30 0RF fluticasone propionate [Flonase Allergy Relief] 50 mcg/actuation spray,suspension 1 spray intranasal DAILY 30 Days Qty: 16 3RF Rx Instructions: administer into each nostril rosuvastatin 10 mg tablet 10 mg PO BEDTIME 90 Days Qty: 90 1RF magnesium oxide 400 mg (241.3 mg magnesium) tablet 400 mg PO BEDTIME 30 Days Qty: 30 6RF Rx Instructions: may hold for loose stools omeprazole 20 mg capsule,delayed release(DR/EC) 20 mg PO DAILY PRN (Reason: heartburn) 90 Days Qty: 90 1RF sennosides [Senna Laxative] 8.6 mg tablet 17.2 mg PO BEDTIME Qty: 60 3RF topiramate 25 mg tablet 25 mg PO BEDTIME 90 Days Qty: 90 1RF venlafaxine 37.5 mg tablet 37.5 mg PO BEDTIME 90 Days Qty: 90 1RF cetirizine [All Day Allergy (cetirizine)] 10 mg tablet 10 mg PO DAILY PRN (Reason: allergy symptoms) 90 Days Qty: 90 0RF azelastine 137 mcg (0.1 %) spray,non-aerosol 1 spray intranasal BID Qty: 30 3RF Rx Instructions: administer into each nostril fluticasone propion-salmeterol [Advair HFA] 115-21 mcg/actuation HFA aerosol inhaler 2 puff inhalation Q12H Qty: 12 3RF albuterol sulfate 90 mcg/actuation HFA aerosol inhaler 2 puff inhalation Q4-6H PRN (Reason: shortness of breath or wheezing) Qty: 1 3RF prednisone 20 mg tablet 40 mg PO DAILY Qty: 10 0RF Print Language: Mongolian
[2024-08-08 15:29] LABS: MANUAL DIFF FLAG NO
[2024-08-08 15:44] LABS: Anion Gap 12 (12-20); Blood Urea Nitrogen 9 mg/dL (9-16); Carbon Dioxide 22 mmol/L (22-29); Chloride 107 mmol/L (96-108); Creatinine Clr Calc Pharmacy 75.1; Estimated Glomerular Filt Rate > 60; Glucose Random 103 mg/dL (60-115); Magnesium 1.9 mg/dL (1.6-2.6); Potassium 4.3 mmol/L (3.3-5.1); Sodium 137 mmol/L (135-145)
[2024-08-08 15:46] LABS: Basophils Percent Auto 0.6 % (0-2); Eosinophils Absolute Auto 0.1 X10*3/uL (0.0-0.4); Hematocrit 37.2 % (37.0-47.0); Hemoglobin 11.6 g/dl (12.0-16.0); Imm Gran Abs Auto 0.05 X10*3/uL (0.00-0.03); Imm Gran Pct Auto 0.7 % (0.0-0.4); Lymphocytes Absolute Auto 1.4 X10*3/uL (1.2-4.9); Lymphocytes Percent Auto 20.2 % (20-40); Mean Corpuscular HGB Conc 31.2 g/dl (31.0-35.0); Mean Corpuscular Hemoglobin 24.4 pg (27.0-33.0); Mean Corpuscular Volume 78.2 fL (80.0-98.0); Mean Platelet Volume 10.6 fL (9.4-12.3); Monocytes Percent Auto 14.3 % (2-11); Neutrophils Absolute Auto 4.3 x10*3/uL (2.0-8.3); Neutrophils Percent Auto 63.2 % (45-73); Platelet Count 315 X10*3/uL (160-400); Red Blood Count 4.76 X10*6/uL (4.20-5.50); Red Cell Distribution Width 16.1 % (11.0-16.0); White Blood Count 6.8 X10*3/uL (4.8-10.8)
[2024-08-08 15:55] LABS: Troponin-I High Sensitivity 165.3 ng/L (<3.5-17.0)
[2024-08-08 16:36] LABS: Influenza A PCR NEGATIVE (Negative); Influenza B PCR POSITIVE (Negative); Resp Syncy Virus RNA Qual PCR NEGATIVE (Negative); SARS COV2 PCR INHOUSE NEGATIVE (Negative)
--- OUTSIDE RECORDS SUMMARY | 2024-08-08 18:22 | XMS_ITS | Encounter Summary ---
Author Organization [employer] Address [address] [facility] [address] [place] [address] Care Team Providers Care Rehabilitation Case Coordinator Name Role Phone Cherie Scott OD Primary Care Provider [phone] Encounter Details Date Type Department Care Team ([facility] st Contact Info) Description 06/25/2022 Abstract [facility] ADULT D[facility]AL [address] [place] [address] Kyleigh Pandya DDS [address] [place] [address] Social History Tobacco Use Types Packs/Day Years [...] on filedocumented in this encounter Care Teams Rehabilitation Case Coordinator Relationship Specialty Start Date End Date Cherie Scott OD [address] [place] [id number] PCP - General Optometry 03/24/17 05/01/23 documented as of this encounter
--- OUTSIDE RECORDS SUMMARY | 2024-08-08 18:22 | XMS_ITS | Clinical Summary ---
Author Organization [email or web address] Address [address] [facility] [address] [place] [address] Care Team Providers Care Candy Spreader Helper Name Role Phone Unavailable Primary Care Provider [...]
[2024-08-08 19:34] LABS: Troponin-I High Sensitivity 162.5 ng/L (<3.5-17.0)
[2024-08-08 22:19] LABS: C Reactive Protein 0.66 mg/dL (< or = 0.50)
[2024-08-08 22:58] LABS: Erythrocyte Sedimentation Rate 14 MM/HR (0-20)
--- NOTE | 2024-08-08 23:08 | PC.NURSE ---
Report given to MOY Bryant.
[2024-08-08] MEDS: Oseltamivir Phosphate 75 MG CAPSULE PO (23:37)
== END 2024-08-08 23:44 | disposition home or self-care (01) ==
PROVIDERS: Physician Assistant Medical; Emergency Provider Emergency Medicine; PCP Internal Medicine
DX: R09.1 Pleurisy (principal); J10.1 Influenza due to other identified influenza virus with other respiratory manifestations; R79.89 Other specified abnormal findings of blood chemistry; R07.9 Chest pain, unspecified; R06.02 Shortness of breath; Z03.818 Encounter for observation for suspected exposure to other biological agents ruled out; J45.909 Unspecified asthma, uncomplicated; E78.2 Mixed hyperlipidemia; Z79.02 Long term (current) use of antithrombotics/antiplatelets; Z79.899 Other long term (current) drug therapy
CPT/HCPCS: 0241U; 36415; 71046; 80048; 83735; 84484; 85025; 85652; 86140; 93005; 99283; 99285

== ENCOUNTER → 2024-08-08 14:58 | Outpatient (BNV) | payer OTHER, SELFPAY | PROVIDERS: Emergency Provider Emergency Medicine; PCP Internal Medicine; Visit Provider Internal Medicine Cardiovascular Disease | DX: R00.0 Tachycardia, unspecified (principal) | CPT/HCPCS: 93010 ==

== ENCOUNTER → 2024-08-08 15:13 | Outpatient (BNV) | payer OTHER, SELFPAY | PROVIDERS: PCP Internal Medicine; Visit Provider Radiology Diagnostic Radiology | DX: R07.9 Chest pain, unspecified (principal); R06.02 Shortness of breath | CPT/HCPCS: 71046 ==

== ENCOUNTER 2024-10-03 14:25 | Outpatient (AMB) | payer OTHER, SELFPAY ==
--- NOTE | 2024-10-03 14:32 | MHC.PC.OV ---
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 Required: No Accompanied by: Self / Same As Patient Allergies No Known Allergies [No Known Allergies*] Allergy (Verified 10/03/24 14:48) Medication List - Last Reconciled 10/03/24 by Margo Graff MD albuterol sulfate 90 mcg/actuation 2 puffs inhalation Q4-6H PRN azelastine 1 spray intranasal BID cetirizine (All Day Allergy (cetirizine)) 10 mg PO DAILY PRN 90 days fluticasone propion-salmeterol 115-21 mcg/actuation (Advair HFA) 2 puffs inhalation Q12H fluticasone propionate 50 mcg/actuation (Flonase Allergy Relief) 1 spray intranasal DAILY 30 days ibuprofen 600 mg PO Q8H PRN magnesium oxide 400 mg PO BEDTIME 30 days omeprazole 20 mg PO DAILY PRN 90 days rosuvastatin 10 mg PO BEDTIME 90 days sennosides (Senna Laxative) 17.2 mg (2 x 8.6 mg) PO BEDTIME topiramate 25 mg PO BEDTIME 90 days venlafaxine 37.5 mg PO BEDTIME 90 days zolpidem 10 mg PO BEDTIME PRN 30 days Tobacco use date assessed: 06/06/24 Dental Screening Dental Screen Date: 06/06/24 HPI HPI Comments History of Present Illness Details The patient is a 48-year-old female presenting for a physical examination and preventative care. The patient has a history of allergic rhinitis, which has been present since childhood, causing nasal bleeding and facial swelling. She reports using medications such as cetirizine and azelastine for symptom management, although she sometimes forgets to take them. She has also been prescribed Advair and Ventolin for asthma management. The patient is a smoker, currently smoking approximately five cigarettes per day, which she acknowledges may exacerbate her symptoms. 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 The patient has undergone several surgeries, including parathyroid surgery, endometrial ablation, tubal ligation, breast biopsy, and three sections. Her mother had a history of Sjogren's syndrome, lupus, and stroke, and at the age of 58. - Tetanus vaccination discussed as preventative care measure but patient declines. - Colon cancer screening with Cologuard recommended. - Pap smear done 2022. - Mammogram overdue. [facility] Medical History Physical exam Mixed hyperlipidemia Hyperparathyroidism Transaminitis Epidermal cyst Pure hypercholesterolemia Abscess Hypercalcemia Mild recurrent major depression Mild asthma Obese Allergic rhinitis Sjogrens syndrome GERD (gastroesophageal reflux disease) Depression Anxiety KRYSTLE (iron deficiency anemia) Surgical History History of thyroid surgery History of endometrial ablation H/O tubal ligation H/O right breast biopsy H/O: Family History Maternal Grandmother H/O cancer of uterus Paternal Grandmother History of breast cancer in adulthood Mother History of stroke History of lupus History of Sjogren's disease Father No problems noted. Social History Household Members: Spouse Housing: Apartment Alcohol intake: never Patient Tobacco Use Status: Current everyday Tobacco user Tobacco use type: Cigarette Cigarettes Per Day: 5 e-Cigarette/Vaping Use: Never Used Second Hand Smoke Exposure: No service: No Current occupational status: employed Current occupational exposures/hazards: No Cognitive needs: No Hearing needs: No Vision needs: Yes Female Reproductive History Menstrual Age of Menarche: 11 Questionnaire PHQ-9 Over the last 2 weeks, how often have you been bothered by any of the following problems? 1. Little interest or pleasure in doing things: several days 2. Feeling down, depressed, or hopeless: several days 3. Trouble falling or staying asleep, or sleeping too much: several days 4. Feeling tired or having little energy: more than half the days 5. Poor appetite or overeating: several days 6. Feeling bad about yourself - or that you are a failure or have let yourself or your family down: not at all 7. Trouble concentrating on things, such as reading the newspaper or watching television: nearly every day 8. Moving or speaking so slowly that other people could have noticed. Or the opposite - being so fidgety or restless that you have been moving around a lot more than usual: several days 9. Thoughts that you would be better off or of hurting yourself in some way: several days Total score: 11 Depression Screening Interpretation: Positive Depression Screening Follow-up: Existing condition, In treatment, Community Mental Health Worker F/U and Follow-up Visit Requested Depression Screening Done: Yes 60394 - PHQ-9 Billing: Yes Source: Developed by Drs. Herrera Morrissey, Rosmery Dodson, Juanito Toussaint and colleagues, with an educational keila from [employer]. Thrive Questionnaire Date Thrive assessed: 06/06/24 I am a: Patient What is your living situation today?: I have a steady place to live Within the past 12 months, did the food you bought not last and you didn't have the money to get more?: Often true Within the past 12 months, did you worry whether your food would run out before you got money to buy more?: Often true Do you have trouble paying for medicines?: Yes Do you have trouble getting transportation to medical appointments?: No Do you have trouble paying your heating and electricity bill?: Yes Do you have trouble taking care of your child, family member or friend?: No Do you have trouble with day-to-day activities such as bathing, preparing meals, shopping, managing finances, etc.?: Yes Are you currently unemployed and looking for a job?: No Are you interested in more education?: Yes Please select the resources that you would like help with: None Currently or been in a relationship where the following occur: No concerns reported THRIVE Score: 3 AUDIT C Alcohol Use Questionnaire (AUDIT-C) 1. How often do you have a drink containing alcohol?: 2-4 times a month 2. How many drinks containing alcohol do you have on a typical day when you are drinking?: 3 or 4 3. How often do you have six or more drinks on one occasion?: Less than monthly Total Score: 4 ZAY-7 AMB Questionnaire ZAY-7 Date ZAY - 7 assessed: 06/06/24 Feeling nervous, anxious, or on edge: 2 = More than half the days Not being able to stop or control worryin = More than half the days Worrying too much about different things: 2 = More than half the days Trouble relaxin = More than half the days Being so restless that it is hard to sit still: 3 = Nearly every day Becoming easily annoyed or irritable: 3 = Nearly every day Feeling afraid as if something awful might happen: 3 = Nearly every day Total ZAY-7 score (0-4 normal; 5-9 mild; 10-14 moderate; 15-21 severe): 17 Source: Developed by Drs. Herrera Morrissey, Rosmery Dodson, Juanito Toussaint and colleagues, with an educational keila from [employer]. ZAY-7 Assessment Billing ZAY-7 Assessment Tool: ZAY-7 Assessment 74477 Review of Systems Const All systems reviewed & are unremarkable except as noted in HPI and below Card Denies chest pain at rest, Denies chest pain with activity, Denies edema, Denies irregular heart rhythm, Denies claudication, Denies dyspnea, Denies dyspnea on exertion, Denies orthopnea, Denies paroxysmal nocturnal dyspnea and Denies slow heart rate Resp Denies cough, Denies dyspnea and Denies dyspnea on exertion GI Denies abdominal pain, Denies change in bowel habits, Denies excessive flatus, Denies nausea and Denies vomiting Denies urinary incontinence, Denies urinary hesitancy and Denies urinary urgency Musc Denies atrophy, Denies deformity and Denies limited range of motion Skin/Breast Denies bleeding lesions, Denies changing lesions and Denies rash Physical exam (Primary Care) Vital Signs: Last Vital Signs BP 110/80 10/03/24 14:33 BMI result Body Mass Index 34.0 BMI Assessment/Plan discussion: High BMI High, discussed plan: lifestyle, weight reduction, dietary, physical activity and alcohol moderation Tobacco/Smoking Status: Tobacco use Status Tobacco use date assessed 06/06/24 10/03/24 14:39 Patient Tobacco Use Status Current everyday Tobacco 10/03/24 14:39 Tobacco use type Cigarette 10/03/24 14:39 e-Cigarette/Vaping Use Never Used 10/03/24 14:39 Are you ready to quit: No Tobacco cessation counseling provided: Yes Items discussed: Nicotine replacement and QuitWorks Relapse Prevention: discussed the importance of a supportive environment, discussed extending NRT, discussed negative mood or depression after quitting, weight gain after smoking is common and discussed dietary, exercise and/or lifestyle changes Number of minutes spent counselin CPT code: 53770 - 4-10 Minutes PHQ-9: PHQ-9 Score PHQ-9: Total score 11 10/03/24 15:15 Depression Screening Interpretation: Positive Depression Screening Follow-up: Existing condition, In treatment, Community Mental Health Worker F/U and Follow-up Visit Requested Thrive Assessment: Date of Thrive Assessment Date Thrive assessed 06/06/24 10/03/24 14:39 Currently or been in a relationship where the following occur: No concerns reported [facility] Head: Yes normal to inspection, Yes normocephalic and Yes atraumatic Ears: external ears normal Eyes General: appearance normal, both eyes and all related structures Eyelids: Yes eyelids normal Conjunctivae: conjunctivae normal Neck Neck: Yes normal visual inspection and Yes supple Resp Effort & Inspection: normal respiratory effort Auscultation: clear to auscultation bilaterally Cardio Jugular venous distension: no JVD Rate: regular rate Rhythm: regular rhythm Heart sounds: S1 normal heart sound present and S2 normal heart sound present GI Inspection: Yes normal to inspection Palpation (GI): Soft to palpation and nontender Auscultation: normal bowel sounds Skin General skin exam: no rashes or lesions noted Neuro General: no focal motor deficits Extrem General: Yes full ROM Psych Appearance: grossly normal Coding Level of Care Code Est Pt Prev Care 40-64y(26068) Diagnoses Physical exam Z00.00 Mild recurrent major depression F33.0 Additional Codes ZAY-7 Assessment Billing - ZAY-7 Assessment Tool: ZAY-7 Assessment 79428 ([id number]) PHQ-9 - 44231 - PHQ-9 Billing: Yes ([id number]) Vital Signs *Quality* - CPT code: 92279 - 4-10 Minutes ([id number]) Time Spent (min) 31 Assessment & Plan Assessment & Plan (1) Physical exam: Code(s): Z00.00 - Encounter for general adult medical examination without abnormal findings Category: Medical (2) Mild recurrent major depression: Code(s): F33.0 - Major depressive disorder, recurrent, mild Category: Medical Plan The patient will continue with her current asthma management plan, including the use of Advair and Ventolin as needed. She is advised to adhere to her allergy medications, cetirizine and azelastine, to manage her allergic rhinitis symptoms effectively. Smoking cessation is strongly recommended to reduce exacerbation of respiratory symptoms and improve overall health. Preventative care measures include receiving a tetanus vaccination and completing a colon cancer screening with Cologuard. Follow-up with an supervisor shipping room is suggested to further evaluate and manage her allergy symptoms. Patient was informed and verbally consented to the use of an ambient scribe for clinic note documentation during this visit. During the visit, I discussed the importance of adhering to prescribed medications for asthma and allergic rhinitis management. We reviewed the benefits of smoking cessation and its impact on respiratory health. Preventative care measures, including tetanus vaccination and colon cancer screening with Cologuard, were emphasized. I recommended a follow-up with an supervisor shipping room to address ongoing allergy symptoms. Orders: Referrals Cologuard Test Z12.11 - Encounter for screening for malignant neoplasm of colon, Z12.12 - Encounter for screening for malignant neoplasm of rectum Medications: Refilled omeprazole 20 mg PO DAILY 90 days PRN 90 caps 1RF heartburn magnesium oxide may hold for loose stools 400 mg PO BEDTIME 30 days 30 tabs 6RF rosuvastatin 10 mg PO BEDTIME 90 days 90 tabs 1RF zolpidem 10 mg PO BEDTIME 30 days PRN 30 tabs 0RF insomnia Patient Instructions: - Continue using Advair and Ventolin for asthma management as prescribed. - Take cetirizine and azelastine regularly to manage allergy symptoms. - Consider quitting smoking to improve respiratory health. - Schedule and complete a tetanus vaccination. - Complete colon cancer screening with Cologuard. - Follow up with an supervisor shipping room for further evaluation of allergy symptoms.
[2024-10-03 14:33] VITALS: BP 110/80; BMI 34.0
== END 2024-10-03 15:10 | disposition home or self-care (01) ==
LOC: HO.HMCH 14:26
PROVIDERS: PCP Internal Medicine; Visit Provider Internal Medicine
DX: Z00.00 Encounter for general adult medical examination without abnormal findings (principal); F33.0 Major depressive disorder, recurrent, mild

== ENCOUNTER → 2024-10-03 14:25 | Outpatient (BNVA) | payer OTHER, SELFPAY | PROVIDERS: PCP Internal Medicine; Visit Provider Internal Medicine | DX: Z00.00 Encounter for general adult medical examination without abnormal findings (principal); F33.0 Major depressive disorder, recurrent, mild; F17.210 Nicotine dependence, cigarettes, uncomplicated | CPT/HCPCS: 96127; 99396 ==

== ENCOUNTER 2025-01-03 14:30 | Emergency (ER) | payer OTHER, SELFPAY ==
--- NOTE | ~2025-01-03 | XR_ITS ---
EXAMINATION: XR LUMBOSACRAL SPINE CLINICAL INFORMATION: low back pain COMPARISON: None available. TECHNIQUE: Three views of the lumbosacral spine. FINDINGS: 5 nonrib-bearing lumbar segments. Vertebral body height and alignment is preserved. Disc spaces are preserved. XR/XR lumbar spine 2-3V IMPRESSION: Unremarkable lumbar spine. Electronically signed by: Yahir Rayo MD 01/03/2025 03:39 PM EDT
[2025-01-03 14:56] VITALS: BP 129/76; PULSE 72; RESP 16; TEMP 36.1; O2SAT 95; BMI 33.5
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
--- OUTSIDE RECORDS SUMMARY | 2025-01-03 19:48 | XMS_ITS | Encounter Summary ---
Author Organization [employer] [facility] Address [address] [place] [address] Care Team Providers Care Chief Information Officer Name Role Phone Cherie Scott OD Primary Care Provider [phone] Encounter Details Date Type Department Care Team (Late st Contact Info) Description 06/25/2022 Abstract [facility] [address] [place] [address] Kyleigh Pandya DDS [address] [place] [address] Social History Tobacco Use Types Packs/Day Years [...] on filedocumented in this encounter Care Teams Chief Information Officer Relationship Specialty Start Date End Date Cherie Scott OD [address] [place] [id number] PCP - General Optometry 03/24/17 05/01/23 documented as of this encounter
--- OUTSIDE RECORDS SUMMARY | 2025-01-03 19:49 | XMS_ITS | Clinical Summary ---
Author Organization [employer] Address [address] [place] [address] Care Team Providers Care Fibre Composite Technician Name Role Phone Unavailable Primary Care Provider [...] Screening 1975 SDOH Screening 1975 Sigmoidoscopy 1975 Disability Screening 1975 Alcohol/Substance Use Screening 1987 Family Planning (PISQ) 12/27/1990 Hepatitis C Screening 12/27/1993 DTaP/Tdap/Td Vaccines (1 - Tdap) 12/27/1994 Hepatitis B Vaccines (1 of 3 - 19+ 3-dose series) 12/27/1994 Pneumococcal Vaccine: Pediatrics (0 to 5 Years) and At-Risk Patients (6 to 49) Years (1 of 2 - PCV) 12/27/1994 Pap Smear 12/27/1996 Cervical Cancer Screening 12/27/2005 HPV/Cotest 12/27/2005 Mammogram 2015 Dental Oral Exam 01/15/2023 07/14/2022 Dental Prophylaxis 01/15/2023 07/14/2022 Dental X-Ray: Bitewings 07/16/2023 07/15/19 23, 06/10/2022 Tobacco Screening 09/03/2023 09/02/2022 COVID-19 Vaccine (1 - 2023-2 5 season) 2024 Influenza Vaccine (#1) 2024 Dental X-Ray: Full Mouth 07/15/2025 07/14/2022 Zoster [...] patient's age to complete this topic Meningococcal B Vaccine Aged Out No l onger eligible based on patient's age to complete [...] Most Recently Relevant to Health Maintenance Insurance D[facility]AL-[facility] MEDICAID STAND ADULT [place] [id number] [facility] [place] [id number] [place] [id number]
--- NOTE | 2025-01-03 20:12 | PC.NURSE ---
CHE Mckeon & flat spring assembler at bedside for initial evaluation. Care ongoing by this RN.
[2025-01-03 20:28] VITALS: BP 132/80; PULSE 66; RESP 16; TEMP 36.2; O2SAT 95
== END 2025-01-03 20:28 | disposition home or self-care (01) ==
PROVIDERS: Emergency Provider Student in an Organized Health Care Education/Training Program; PCP Internal Medicine
DX: S13.4XXA Sprain of ligaments of cervical spine, initial encounter (principal); S39.92XA Unspecified injury of lower back, initial encounter; V43.52XA Car driver injured in collision with other type car in traffic accident, initial encounter; Y93.9 Activity, unspecified; Y92.410 Unspecified street and highway as the place of occurrence of the external cause; Y99.8 Other external cause status
CPT/HCPCS: 72100; 96372; 99283; 99284; J1885

== ENCOUNTER → 2025-01-03 15:13 | Outpatient (BNV) | payer OTHER, SELFPAY | PROVIDERS: PCP Internal Medicine; Visit Provider Radiology Diagnostic Radiology | DX: M54.50 Low back pain, unspecified (principal) | CPT/HCPCS: 72100 ==

== ENCOUNTER 2025-01-31 00:34 | Emergency (ER) | payer OTHER, SELFPAY ==
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
[2025-01-31 00:49] VITALS: BP 152/88; PULSE 130; O2SAT 99; BMI 39.4
[2025-01-31 00:59] VITALS: BP 122/86; PULSE 98; RESP 22; TEMP 36.6; O2SAT 97
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
== END 2025-01-31 03:01 | disposition home or self-care (01) ==
PROVIDERS: Emergency Provider Emergency Medicine; PCP Internal Medicine
DX: S00.83XA Contusion of other part of head, initial encounter (principal); Y04.2XXA Assault by strike against or bumped into by another person, initial encounter; Y93.9 Activity, unspecified; Y92.9 Unspecified place or not applicable; Y99.9 Unspecified external cause status
CPT/HCPCS: 70450; 72125; 99283; 99284

== ENCOUNTER → 2025-01-31 01:05 | Outpatient (BNV) | payer OTHER, SELFPAY | PROVIDERS: Emergency Provider Emergency Medicine; PCP Internal Medicine; Visit Provider Radiology Diagnostic Radiology | DX: S00.83XA Contusion of other part of head, initial encounter (principal); Y04.2XXA Assault by strike against or bumped into by another person, initial encounter | CPT/HCPCS: 70450; 72125 ==

== ENCOUNTER 2025-03-27 12:57 | Outpatient (AMB) | payer OTHER, SELFPAY ==
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
[2025-03-27 13:01] VITALS: BP 112/68; PULSE 105; TEMP 36.7; O2SAT 97; BMI 32.5
== END 2025-03-27 13:55 | disposition home or self-care (01) ==
LOC: HO.HMCH 12:58
PROVIDERS: PCP Internal Medicine; Visit Provider Internal Medicine
DX: F33.0 Major depressive disorder, recurrent, mild (principal); Z88.9 Allergy status to unspecified drugs, medicaments and biological substances; M25.512 Pain in left shoulder; M25.511 Pain in right shoulder; K21.9 Gastro-esophageal reflux disease without esophagitis; Z23 Encounter for immunization

== ENCOUNTER 2025-03-27 12:57 | Outpatient (REF) | payer OTHER, SELFPAY ==
--- NOTE | ~2025-03-27 | XR_ITS ---
EXAMINATION: X-ray right shoulder X-ray left shoulder CLINICAL INFORMATION: Pain COMPARISON: None TECHNIQUE: Right shoulder 3 views. Left shoulder 3 views. FINDINGS: Right shoulder: No acute fracture or dislocation. Glenohumeral and acromioclavicular joint spaces are maintained. No suspicious bony lesion. No abnormal soft tissue calcification.. Left shoulder: No acute fracture or dislocation. Glenohumeral and acromioclavicular joint spaces are maintained. No suspicious bony lesion. No abnormal soft tissue calcification. XR/XR Shoulder Tyson min 2V IMPRESSION: No acute osseous findings Electronically signed by: Shiv Marrero MD 03/28/2025 02:03 PM EST
--- OUTSIDE RECORDS SUMMARY | 2025-03-27 17:02 | XMS_ITS | Encounter Summary ---
Author Organization [employer] [facility] Address [address] [place] [address] Care Team Providers Care Surveillance Systems Analyst Name Role Phone Cherie Scott OD Primary Care Provider [phone] Encounter Details Date Type Department Care Team (Late st Contact Info) Description 06/25/2022 Abstract [facility] [address] [place] [address] Kyleigh Pandya DDS [address] [place] [address] Social History Tobacco Use Types Packs/Day Years [...] on filedocumented in this encounter Care Teams Surveillance Systems Analyst Relationship Specialty Start Date End Date Cherie Scott OD [address] [place] [id number] PCP - General Optometry 03/24/17 05/01/23 documented as of this encounter
--- OUTSIDE RECORDS SUMMARY | 2025-03-27 17:02 | XMS_ITS | Clinical Summary ---
Author Organization [employer] Address [address] [place] [address] Care Team Providers Care Bat Person Name Role Phone Unavailable Primary Care Provider [...] 06/10/2022 Tobacco Screening 09/03/2023 09/02/2022 COVID-19 Vaccine ( - 2024-2 6 season) 2024 Influenza Vaccine (#1) 2024 Dental [...] Most Recently Relevant to Health Maintenance Insurance [facility] MEDICAID [place] [id number] [place] [id number] [place] [id number]
== END 2025-03-27 12:58 | disposition home or self-care (01) ==
LOC: HO.XRAY 12:57
PROVIDERS: PCP Internal Medicine; Visit Provider Internal Medicine
DX: M25.512 Pain in left shoulder (principal); M25.511 Pain in right shoulder; Z28.9 Immunization not carried out for unspecified reason; F33.0 Major depressive disorder, recurrent, mild; K21.9 Gastro-esophageal reflux disease without esophagitis; Z88.9 Allergy status to unspecified drugs, medicaments and biological substances
CPT/HCPCS: 73030; 90471; 96127; 99212